=== PATIENT | male | born 1970 | race Caucasian/White ===

== ENCOUNTER → 2018-02-28 13:22 | Outpatient (CLI) | payer BC, SELFPAY ==
[2018-02-28 13:46] LABS: Abs Immature Grans 0.02 k/cumm (0.0-0.09); Absolute Basophil Count 0.05 k/cumm (0.0-0.2); Absolute Eosinophil Count 0.32 k/cumm (0.0-0.7); Absolute Lymphocyte Count 2.73 k/cumm (1.2-3.4); Absolute Monocyte Count 0.86 k/cumm (0.11-0.7); Absolute Neutrophil Count 5.58 k/cumm (1.2-6.7); Basophils % 0.5; Eosinophils % 3.3; HCT 43.3 % (40.0-50.0); HGB 14.6 g/dL (13.5-17.5); Immature Grans % 0.2; Lymphocytes % 28.6; Mean Corp. HGB Concentration 33.7 g/dL (32.0-36.0); Mean Corpuscular Hemoglobin 34.3 pg (27.0-33.0); Mean Corpuscular Volume 101.6 fL (80-95); Mean Platelet Volume 8.8 fL (8.0-11.0); Neutrophils % 58.4; Platelet Count 342 x1000/uL (130-400); RBC 4.26 m/cumm (4.50-6.00); RBC Distribution Width 12.7 % (11.8-14.1); White Blood Cell Count 9.56 k/cumm (4.4-10.8)
[2018-02-28 14:52] LABS: ALT 21 U/L (12-78); AST 19 U/L (15-37); Albumin 3.6 g/dL (3.4-5.0); Alkaline Phosphatase 108 U/L (46-116); Anion Gap 10.1 mmol/L (3-11); BUN 15 mg/dL (7-18); Bilirubin, Total 0.3 mg/dL (0.2-1.0); CO2 25.9 mmol/L (21.0-32.0); Calcium 8.8 mg/dL (8.5-10.1); Chloride 104 mmol/L (98-107); Glucose 85 mg/dL (70-100); Potassium 4.1 mmol/L (3.5-5.1); Sodium 140 mmol/L (136-145); Total Protein 7.3 g/dL (6.4-8.2)
== END ==
PROVIDERS: PCP Family Medicine; Visit Provider Internal Medicine Rheumatology
DX: M05.70 Rheumatoid arthritis with rheumatoid factor of unspecified site without organ or systems involvement (principal)
CPT/HCPCS: 36415; 80053; 85025; 86140

== ENCOUNTER 2018-04-16 15:14 | Outpatient (CLI) | payer BC, SELFPAY ==
[2018-04-16 16:22] LABS: ALT 19 U/L (12-78); AST 17 U/L (15-37); Albumin 3.4 g/dL (3.4-5.0); Alkaline Phosphatase 104 U/L (46-116); Anion Gap 8.8 mmol/L (3-11); BUN 14 mg/dL (7-18); Bilirubin, Total 0.2 mg/dL (0.2-1.0); C-Reactive Protein 1.45 mg/dL (0.0-0.3); CO2 26.2 mmol/L (21.0-32.0); CREATININE 0.81 mg/dL (0.70-1.30); Chloride 105 mmol/L (98-107); Glucose 96 mg/dL (70-100); Potassium 4.3 mmol/L (3.5-5.1); Sodium 140 mmol/L (136-145); Total Protein 6.8 g/dL (6.4-8.2)
[2018-04-16 16:30] LABS: Abs Immature Grans 0.02 k/cumm (0.0-0.09); Absolute Basophil Count 0.05 k/cumm (0.0-0.2); Absolute Eosinophil Count 0.39 k/cumm (0.0-0.7); Absolute Lymphocyte Count 2.97 k/cumm (1.2-3.4); Absolute Monocyte Count 0.98 k/cumm (0.11-0.7); Basophils % 0.5; Eosinophils % 3.6; HCT 40.7 % (40.0-50.0); HGB 13.8 g/dL (13.5-17.5); Immature Grans % 0.2; Lymphocytes % 27.5; Mean Corp. HGB Concentration 33.9 g/dL (32.0-36.0); Mean Corpuscular Hemoglobin 34.5 pg (27.0-33.0); Mean Corpuscular Volume 101.8 fL (80-95); Mean Platelet Volume 9.5 fL (8.0-11.0); Monocytes % 9.1; Neutrophils % 59.1; Platelet Count 344 x1000/uL (130-400); RBC Distribution Width 12.8 % (11.8-14.1); White Blood Cell Count 10.81 k/cumm (4.4-10.8)
[2018-04-16 16:35] LABS: Absolute Neutrophil Count 6.39 k/cumm (1.2-6.7)
== END 2018-04-16 15:34 ==
PROVIDERS: PCP Family Medicine; Visit Provider Internal Medicine Rheumatology
DX: M05.70 Rheumatoid arthritis with rheumatoid factor of unspecified site without organ or systems involvement (principal)
CPT/HCPCS: 36415; 80053; 85025; 86140

== ENCOUNTER 2018-08-15 09:19 | Outpatient (CLI) | payer BC, SELFPAY ==
[2018-08-15 09:44] LABS: Abs Immature Grans 0.01 k/cumm (0.0-0.09); Absolute Basophil Count 0.07 k/cumm (0.0-0.2); Absolute Eosinophil Count 0.31 k/cumm (0.0-0.7); Absolute Lymphocyte Count 2.68 k/cumm (1.2-3.4); Absolute Monocyte Count 0.81 k/cumm (0.11-0.7); Absolute Neutrophil Count 4.47 k/cumm (1.2-6.7); Basophils % 0.8; Eosinophils % 3.7; HCT 43.8 % (40.0-50.0); HGB 15.6 g/dL (13.5-17.5); Immature Grans % 0.1; Lymphocytes % 32.1; Mean Corp. HGB Concentration 35.6 g/dL (32.0-36.0); Mean Corpuscular Hemoglobin 36.1 pg (27.0-33.0); Mean Corpuscular Volume 101.4 fL (80-95); Mean Platelet Volume 9.3 fL (8.0-11.0); Monocytes % 9.7; Neutrophils % 53.6; Platelet Count 306 x1000/uL (130-400); RBC 4.32 m/cumm (4.50-6.00); White Blood Cell Count 8.35 k/cumm (4.4-10.8)
[2018-08-15 10:27] LABS: ALT 31 U/L (12-78); AST 21 U/L (15-37); Albumin 3.7 g/dL (3.4-5.0); Alkaline Phosphatase 97 U/L (46-116); Anion Gap 9.8 mmol/L (3-11); BUN 15 mg/dL (7-18); Bilirubin, Total 0.3 mg/dL (0.2-1.0); C-Reactive Protein 0.41 mg/dL (0.0-0.3); CO2 26.2 mmol/L (21.0-32.0); CREATININE 0.89 mg/dL (0.70-1.30); Calcium 9.4 mg/dL (8.5-10.1); Chloride 105 mmol/L (98-107); Glucose 88 mg/dL (70-100); Potassium 4.5 mmol/L (3.5-5.1); Sodium 141 mmol/L (136-145); Total Protein 7.2 g/dL (6.4-8.2)
== END 2018-08-15 09:39 ==
PROVIDERS: PCP Family Medicine; Visit Provider Internal Medicine Rheumatology
DX: M05.70 Rheumatoid arthritis with rheumatoid factor of unspecified site without organ or systems involvement (principal); Z79.899 Other long term (current) drug therapy
CPT/HCPCS: 36415; 80053; 85025; 86140

== ENCOUNTER 2018-12-22 10:49 | Outpatient (CLI) | payer BC, SELFPAY ==
[2018-12-22 11:07] LABS: Abs Immature Grans 0.03 k/cumm (0.0-0.09); Absolute Basophil Count 0.04 k/cumm (0.0-0.2); Absolute Eosinophil Count 0.32 k/cumm (0.0-0.7); Absolute Lymphocyte Count 2.82 k/cumm (1.2-3.4); Absolute Monocyte Count 0.92 k/cumm (0.11-0.7); Absolute Neutrophil Count 5.29 k/cumm (1.2-6.7); Basophils % 0.4; Eosinophils % 3.4; HCT 47.2 % (40.0-50.0); HGB 16.2 g/dL (13.5-17.5); Immature Grans % 0.3; Lymphocytes % 29.9; Mean Corp. HGB Concentration 34.3 g/dL (32.0-36.0); Mean Corpuscular Hemoglobin 35.3 pg (27.0-33.0); Mean Corpuscular Volume 102.8 fL (80-95); Mean Platelet Volume 9.2 fL (8.0-11.0); Monocytes % 9.8; Neutrophils % 56.2; Platelet Count 329 x1000/uL (130-400); RBC 4.59 m/cumm (4.50-6.00); White Blood Cell Count 9.42 k/cumm (4.4-10.8)
[2018-12-22 12:09] LABS: ALT 34 U/L (12-78); AST 19 U/L (15-37); Albumin 3.7 g/dL (3.4-5.0); Alkaline Phosphatase 105 U/L (46-116); Anion Gap 11.7 mmol/L (3-11); BUN 16 mg/dL (7-18); Bilirubin, Total 0.3 mg/dL (0.2-1.0); C-Reactive Protein 0.31 mg/dL (0.0-0.3); CO2 24.3 mmol/L (21.0-32.0); CREATININE 0.86 mg/dL (0.70-1.30); Calcium 9.3 mg/dL (8.5-10.1); Chloride 103 mmol/L (98-107); Glucose 112 mg/dL (70-100); Potassium 4.3 mmol/L (3.5-5.1); Sodium 139 mmol/L (136-145); Total Protein 7.4 g/dL (6.4-8.2)
== END 2018-12-22 11:09 ==
PROVIDERS: PCP Family Medicine; Visit Provider Internal Medicine Rheumatology
DX: M05.70 Rheumatoid arthritis with rheumatoid factor of unspecified site without organ or systems involvement (principal); Z79.899 Other long term (current) drug therapy
CPT/HCPCS: 36415; 80053; 85025; 86140

== ENCOUNTER 2019-01-24 19:30 | Emergency (ER) | payer BC, SELFPAY ==
[2019-01-24 19:49] VITALS: BP 136/75; PULSE 88; RESP 14; TEMP 36.6; O2SAT 97
--- NOTE | 2019-01-24 20:05 | W.ED.GENAD ---
Discharge Plan Disposition Patient Disposition: HOME Condition: Improving Discharge Details Chief Complaint: RashLesion Clinical Impression: Acute dehydration Primary Care Provider: Jian Laura ED Provider: Denilson Zuniga Home Meds and New Rx's Prescriptions: Continued valacyclovir [Valtrex] 500 MG tablet 500 mg PO DAILY RF: 0 aspirin [Aspir-81] 81 MG tablet,delayed release (DR/EC) 81 mg PO DAILY RF: 0 hydroxychloroquine 200 MG tablet 200 mg PO BID Qty: 180 RF: 0 hydrocodone-acetaminophen 1 TAB tablet 1 - 2 tab PO Q4H PRN (Reason: Pain) RF: 0 Discharge Instructions Instructions: Dehydration (ED) Additional Instructions: Your laboratories were notable for mild dehydration. Home to rest this evening. Small, frequent sips of fluids to maintain hydration. We will ask our care management team to make you a follow-up appointment at [facility] for review of your tick panel. Return for any acute concerns Continue all regular medications Medical Decision Making 49-year-old male with history of rheumatoid arthritis for which she takes weekly methotrexate. He presents with 1 day of a right shoulder erythematous wheal, that blanches to the touch. It was preceded by 2 to 3 days of upper respiratory illness that is now improved. Currently the patient denies fever, chills, cough. He is not in any known tick bites but does work in the [employer]. I do feel he is at risk for possible tickborne disease and therefore screening tick disease panel obtained in addition to screening laboratories to rule out bone marrow suppression due to the patient's ongoing use of methotrexate. Today's screening diagnostic are reassuring. Patient does show some evidence of mild dehydration with a BUN elevated to 26. His initial CBC is reassuring. Tick panel pending. After the patient's discharge it was reported me by the laboratory that some atypical lymphocytes were present. This can be reviewed and further diagnostic planned at the time of follow-up He will hydrate at home. We will make him a follow-up appointment in [facility] to discuss results of his Lyme testing. He stable for discharge home at this time. May apply Benadryl cream to small area of right scapula lesion HPI General Mode of arrival: ambulatory. Date/Time Provider Initiated Documentation: 01/24/19 19:54. Limitations to Documentation: no limitations. Information obtained by: patient. History of Present Illness 49 year old M presents to the emergency department with the chief complaint of Right scapula lesion, described as mild, Quality is described as constant, and is localized to the right and upper extremity. Patient reports no radiation. Patient started experiencing this hour(s) and it has been constant. No relieving factors improve symptom(s), No exacerbating factors reported . Patient notes rash; denies fever/chills. Patient did receive the following treatments prior to arrival, none Related Data Home Medications Medication Instructions Recorded Confirmed valacyclovir [Valtrex] 500 mg PO DAILY tab-cap 11/05/13 04/02/15 aspirin [Aspir-81] 81 mg PO DAILY tab-cap 08/28/14 04/02/15 hydroxychloroquine 200 mg PO BID #180 tab-cap 12/23/14 hydrocodone-acetaminophen 1 - 2 tab PO Q4H PRN 04/02/15 04/02/15 Allergies Allergy/AdvReac Type Severity Reaction Status Date / Time No Known Allergies Allergy Unverified 01/24/19 19:53 General Stated Complaint: RashLesion EDDIE: 4 Review of Systems Review of Systems 6 systems reviewed and otherwise neg [facility] Medical History Carpal tunnel syndrome on both sides Herpes zoster Surgical History Open Carpal Tunnel release (04/02/15) Social History Smoking/Tobacco Use Status: Current every day Tobacco Type: cigarettes Smoking cigarettes per day: 20 Alcohol Intake: current Alcohol Intake frequency: holidays/special occasions only Drug use: Never Substance use type: marijuana Do you feel safe at home: Yes Do you feel safe in your relationship?: Yes Exam Narrative Exam Narrative: GEN: awake, alert, oriented 3. Pleasant, well groomed, interactive. HEAD: Normocephalic, atraumatic ENT: Mucous membranes moist, oropharynx unremarkable, External ear exam unremarkable EYES: PERRL, EOMI NECK: Full ROM, no WOOD, no menigismus CHEST/RESP: Nontender, clear to auscultation bilateral, no wheeze/rhonchi/rales CARDIOVASCULAR: RRR, no murmur, rub patricia. 2+ Rad pulse bilateral ABDOMEN: Soft, nontender, no mass. +Bowel sounds EXT: Full ROM, no edema, on the right scapular region there is a 4 cm diameter erythematous wheal that blanches to the touch. No vesicles Neuro: Grossly normal neurologic exam, conversant, interactive. Psych: Speech fluent, thoughts congruent, affect normal Course Vital Signs Temperature 36.6 C 01/24/19 19:49 Pulse 88 01/24/19 19:49 Respiratory Rate 14 01/24/19 19:49 Blood Pressure 136/75 01/24/19 19:49 Pulse Oximetry 97 01/24/19 19:49 Temperature 36.6 C 01/24/19 19:49 Temperature Source Temporal Artery Scan 01/24/19 19:49 Pulse 88 01/24/19 19:49 Respiratory Rate 14 01/24/19 19:49 Respiratory Effort 01/24/19 19:49 Blood Pressure 136/75 01/24/19 19:49 Pulse Oximetry 97 01/24/19 19:49 Oxygen Delivery Method Room Air 01/24/19 19:49 Oxygen Flow Rate 0 01/24/19 19:49
--- NOTE | 2019-01-24 20:08 | ED.GENADUL_ITS ---
Discharge Plan Disposition Patient Disposition: HOME Condition: Improving Discharge Details Chief Complaint: RashLesion Clinical Impression: Acute dehydration Primary Care Provider: Jian Laura ED Provider: Denilson Zuniga Home Meds and New Rx's Prescriptions: Continued valacyclovir [Valtrex] 500 MG tablet 500 mg PO DAILY RF: 0 aspirin [Aspir-81] 81 MG tablet,delayed release (DR/EC) 81 mg PO DAILY RF: 0 hydroxychloroquine 200 MG tablet 200 mg PO BID Qty: 180 RF: 0 hydrocodone-acetaminophen 1 TAB tablet 1 - 2 tab PO Q4H PRN (Reason: Pain) RF: 0 Discharge Instructions Instructions: Dehydration (ED) Additional Instructions: Your laboratories were notable for mild dehydration. Home to rest this evening. Small, frequent sips of fluids to maintain hydration. We will ask our care management team to make you a follow-up appointment at [facility] for review of your tick panel. Return for any acute concerns Continue all regular medications Medical Decision Making 49-year-old male with history of rheumatoid arthritis for which she takes weekly methotrexate. He presents with 1 day of a right shoulder erythematous wheal, that blanches to the touch. It was preceded by 2 to 3 days of upper respiratory illness that is now improved. Currently the patient denies fever, chills, cough. He is not in any known tick bites but does work in the [employer]. I do feel he is at risk for possible tickborne disease and therefore screening tick disease panel obtained in addition to screening laboratories to rule out bone marrow suppression due to the patient's ongoing use of methotrexate. Today's screening diagnostic are reassuring. Patient does show some evidence of mild dehydration with a BUN elevated to 26. His initial CBC is reassuring. Tick panel pending. After the patient's discharge it was reported me by the laboratory that some atypical lymphocytes were present. This can be reviewed and further diagnostic planned at the time of follow-up He will hydrate at home. We will make him a follow-up appointment in [facility] to discuss results of his Lyme testing. He stable for discharge home at this time. May apply Benadryl cream to small area of right scapula lesion HPI General Mode of arrival: ambulatory . Date/Time Provider Initiated Documentation: 01/24/19 19:54 . Limitations to Documentation: no limitations . Information obtained by: patient . History of Present Illness 49 year old M presents to the emergency department with the chief complaint of Right scapula lesion, described as mild, Quality is described as constant, and is localized to the right and upper extremity. Patient reports no radiation. Patient started experiencing this hour(s) and it has been constant. No relieving factors improve symptom(s), No exacerbating factors reported . Patient notes rash; denies fever/chills. Patient did receive the following treatments prior to arrival, none Related Data Home Medications Medication Instructions Recorded Confirmed valacyclovir [Valtrex] 500 mg PO DAILY tab-cap 11/05/13 04/02/15 aspirin [Aspir-81] 81 mg PO DAILY tab-cap 08/28/14 04/02/15 hydroxychloroquine 200 mg PO BID #180 tab-cap 12/23/14 hydrocodone-acetaminophen 1 - 2 tab PO Q4H PRN 04/02/15 04/02/15 Allergies Allergy/AdvReac Type Severity Reaction Status Date / Time No Known Allergies Allergy Unverified 01/24/19 19:53 General Stated Complaint: RashLesion EDDIE: 4 Review of Systems Review of Systems 6 systems reviewed and otherwise neg [facility] Medical History Carpal tunnel syndrome on both sides Herpes zoster Surgical History Open Carpal Tunnel release (04/02/15) Social History Smoking/Tobacco Use Status: Current every day Tobacco Type: cigarettes Smoking cigarettes per day: 20 Alcohol Intake: current Alcohol Intake frequency: holidays/special occasions only Drug use: Never Substance use type: marijuana Do you feel safe at home: Yes Do you feel safe in your relationship?: Yes Exam Narrative Exam Narrative: GEN: awake, alert, oriented 3. Pleasant, well groomed, interacti ve. HEAD: Normocephalic, atraumatic ENT: Mucous membranes moist, oropharynx unremarkable, External ear exam unremarkable EYES: PERRL, EOMI NECK: Full ROM, no WOOD, no menigismus CHEST/RESP: Nontender, clear to auscultation bilateral, no wheeze/rhonchi/rales CARDIOVASCULAR: RRR, no murmur, rub patricia. 2+ Rad pulse bilateral ABDOMEN: Soft, nontender, no mass. +Bowel sounds EXT: Full ROM, no edema, on the right scapular region there is a 4 cm diameter erythematous wheal that blanches to the touch. No vesicles Neuro: Grossly normal neurologic exam, conversant, interactive. Psych: Speech fluent, thoughts congruent, affect normal Course Vital Signs Temperature 36.6 C 01/24/19 19:49 Pulse 88 01/24/19 19:49 Respiratory Rate 14 01/24/19 19:49 Blood Pressure 136/75 01/24/19 19:49 Pulse Oximetry 97 01/24/19 19:49 Temperature 36.6 C 01/24/19 19:49 Temperature Source Temporal Artery Scan 01/24/19 19:49 Pulse 88 01/24/19 19:49 Respiratory Rate 14 01/24/19 19:49 Respiratory Effort 01/24/19 19:49 Blood Pressure 136/75 01/24/19 19:49 Pulse Oximetry 97 01/24/19 19:49 Oxygen Delivery Method Room Air 01/24/19 19:49 Oxygen Flow Rate 0 01/24/19 19:49
[2019-01-24 20:27] LABS: Abs Immature Grans 0.02 k/cumm (0.0-0.09); Absolute Basophil Count 0.09 k/cumm (0.0-0.2); Absolute Eosinophil Count 0.28 k/cumm (0.0-0.7); Basophils % 0.9; Eosinophils % 2.9; HCT 43.9 % (40.0-50.0); HGB 15.3 g/dL (13.5-17.5); Immature Grans % 0.2; Mean Corp. HGB Concentration 34.9 g/dL (32.0-36.0); Mean Corpuscular Hemoglobin 34.6 pg (27.0-33.0); Mean Corpuscular Volume 99.3 fL (80-95); Mean Platelet Volume 9.8 fL (8.0-11.0); Platelet Count 242 x1000/uL (130-400); RBC 4.42 m/cumm (4.50-6.00); RBC Distribution Width 13.2 % (11.8-14.1); White Blood Cell Count 9.66 k/cumm (4.4-10.8)
[2019-01-24 20:42] LABS: Anion Gap 9.8 mmol/L (3-11); BUN 26 mg/dL (7-18); CO2 27.2 mmol/L (21.0-32.0); CREATININE 1.02 mg/dL (0.70-1.30); Calcium 8.8 mg/dL (8.5-10.1); Chloride 99 mmol/L (98-107); Glucose 120 mg/dL (70-100); Potassium 3.6 mmol/L (3.5-5.1); Sodium 136 mmol/L (136-145)
[2019-01-24 21:02] VITALS: BP 136/75; PULSE 88; RESP 14; O2SAT 97
[2019-01-24 21:11] LABS: Absolute Neutrophil Count 5.12 k/cumm (1.2-6.7)
[2019-01-24 21:12] LABS: Atypical Lymphocytes % 12
[2019-01-24 21:13] LABS: Absolute Monocyte Count 1.45 k/cumm (0.11-0.7)
[2019-01-24 21:14] LABS: Diff Comment Manual Differential; RBC Morphology Normal
[2019-01-27 12:13] LABS: Lyme Ab w Rflx to Lyme Confirm Negative
[2019-01-28 00:19] LABS: Anaplasma phagocytophilum Negative (Negative); B. miyamotoi PCR Negative (Negative); Babesia divergens/MO-1 Negative (Negative); Babesia duncani Negative (Negative); Babesia microti Negative (Negative); Ehrlichia chaffeensis Negative (Negative); Ehrlichia ewingii/canis Negative (Negative); Ehrlichia muris eauclairensis Negative (Negative)
== END 2019-01-24 20:58 | disposition home or self-care (01) ==
PROVIDERS: Emergency Provider Emergency Medicine; PCP Family Medicine
DX: E86.0 Dehydration (principal); L50.9 Urticaria, unspecified
CPT/HCPCS: 36415; 80048; 87798; 99283; 85025; 86618

== ENCOUNTER 2019-01-29 11:55 | Outpatient (CLI) | payer BC, SELFPAY ==
[2019-01-29 12:30] LABS: HGB 14.1 g/dL (13.5-17.5); Mean Corp. HGB Concentration 35.3 g/dL (32.0-36.0); Mean Corpuscular Hemoglobin 35.7 pg (27.0-33.0); Mean Corpuscular Volume 101.3 fL (80-95); Mean Platelet Volume 9.3 fL (8.0-11.0); Platelet Count 472 x1000/uL (130-400); RBC 3.95 m/cumm (4.50-6.00); RBC Distribution Width 13.4 % (11.8-14.1); White Blood Cell Count 9.53 k/cumm (4.4-10.8)
[2019-01-29 13:35] LABS: Vitamin B12 868 pg/mL (193-986)
[2019-01-29 13:48] LABS: Folate > 20.0 ng/mL (8.6-20.0)
[2019-02-02 10:20] LABS: Methylmalonic Acid 0.07 nmol/mL (<=0.40)
== END 2019-01-29 12:15 ==
PROVIDERS: PCP Family Medicine; Visit Provider Emergency Medicine
DX: D64.9 Anemia, unspecified (principal); Z79.899 Other long term (current) drug therapy; Z51.81 Encounter for therapeutic drug level monitoring
CPT/HCPCS: 36415; 80186; 85027; 82607; 82746

== ENCOUNTER 2019-04-28 13:55 | Outpatient (CLI) | payer BC, SELFPAY ==
[2019-04-28 14:21] LABS: Abs Immature Grans 0.02 k/cumm (0.0-0.09); Absolute Basophil Count 0.11 k/cumm (0.0-0.2); Absolute Eosinophil Count 0.43 k/cumm (0.0-0.7); Absolute Lymphocyte Count 2.34 k/cumm (1.2-3.4); Absolute Monocyte Count 1.14 k/cumm (0.11-0.7); Absolute Neutrophil Count 4.21 k/cumm (1.2-6.7); Basophils % 1.3; Eosinophils % 5.2; HCT 46.2 % (40.0-50.0); HGB 16.1 g/dL (13.5-17.5); Immature Grans % 0.2; Lymphocytes % 28.4; Mean Corp. HGB Concentration 34.8 g/dL (32.0-36.0); Mean Corpuscular Hemoglobin 35.6 pg (27.0-33.0); Mean Corpuscular Volume 102.2 fL (80-95); Mean Platelet Volume 8.9 fL (8.0-11.0); Monocytes % 13.8; Neutrophils % 51.1; Platelet Count 329 x1000/uL (130-400); RBC 4.52 m/cumm (4.50-6.00); RBC Distribution Width 13.8 % (11.8-14.1); White Blood Cell Count 8.25 k/cumm (4.4-10.8)
[2019-04-28 14:58] LABS: ALT 28 U/L (16-63); AST 20 U/L (15-37); Albumin 3.9 g/dL (3.4-5.0); Alkaline Phosphatase 103 U/L (46-116); Anion Gap 10.5 mmol/L (3-11); BUN 17 mg/dL (7-18); Bilirubin, Total 0.4 mg/dL (0.2-1.0); C-Reactive Protein 0.16 mg/dL (0.0-0.3); CO2 25.5 mmol/L (21.0-32.0); CREATININE 1.03 mg/dL (0.70-1.30); Calcium 8.9 mg/dL (8.5-10.1); Chloride 106 mmol/L (98-107); Glucose 127 mg/dL (70-100); Potassium 4.1 mmol/L (3.5-5.1); Sodium 142 mmol/L (136-145); Total Protein 7.4 g/dL (6.4-8.2)
== END 2019-04-28 14:15 ==
PROVIDERS: PCP Family Medicine; Visit Provider Internal Medicine Rheumatology
DX: M05.70 Rheumatoid arthritis with rheumatoid factor of unspecified site without organ or systems involvement (principal); Z79.899 Other long term (current) drug therapy
CPT/HCPCS: 36415; 80053; 85025; 86140

== ENCOUNTER 2019-08-10 09:08 | Outpatient (CLI) | payer BC, SELFPAY ==
[2019-08-10 09:24] LABS: Abs Immature Grans 0.01 k/cumm (0.0-0.09); Absolute Basophil Count 0.07 k/cumm (0.0-0.2); Absolute Eosinophil Count 0.29 k/cumm (0.0-0.7); Absolute Lymphocyte Count 2.49 k/cumm (1.2-3.4); Absolute Monocyte Count 0.76 k/cumm (0.11-0.7); Absolute Neutrophil Count 4.93 k/cumm (1.2-6.7); Basophils % 0.8; Eosinophils % 3.4; HCT 43.7 % (40.0-50.0); HGB 15.6 g/dL (13.5-17.5); Immature Grans % 0.1 %; Lymphocytes % 29.1; Mean Corp. HGB Concentration 35.7 g/dL (32.0-36.0); Mean Corpuscular Volume 100.9 fL (80-95); Mean Platelet Volume 9.1 fL (8.0-11.0); Monocytes % 8.9; Neutrophils % 57.7; Platelet Count 373 x1000/uL (130-400); RBC 4.33 m/cumm (4.50-6.00); RBC Distribution Width 13.4 % (11.8-14.1); White Blood Cell Count 8.55 k/cumm (4.4-10.8)
[2019-08-10 10:39] LABS: ALT 26 U/L (16-63); AST 21 U/L (15-37); Albumin 3.8 g/dL (3.4-5.0); Alkaline Phosphatase 102 U/L (46-116); Anion Gap 8.7 mmol/L (3-11); BUN 18 mg/dL (7-18); Bilirubin, Total 0.5 mg/dL (0.2-1.0); C-Reactive Protein 0.24 mg/dL (0.0-0.3); CO2 28.3 mmol/L (21.0-32.0); CREATININE 0.88 mg/dL (0.70-1.30); Calcium 9.4 mg/dL (8.5-10.1); Chloride 105 mmol/L (98-107); Glucose 117 mg/dL (74-106); Potassium 4.4 mmol/L (3.5-5.1); Sodium 142 mmol/L (136-145); Total Protein 6.9 g/dL (6.4-8.2)
== END 2019-08-10 09:28 ==
PROVIDERS: PCP Family Medicine; Visit Provider Internal Medicine Rheumatology
DX: M05.70 Rheumatoid arthritis with rheumatoid factor of unspecified site without organ or systems involvement (principal); Z79.899 Other long term (current) drug therapy
CPT/HCPCS: 36415; 80053; 85025; 86140

== ENCOUNTER 2019-12-17 02:37 | Outpatient (CLI) | payer BC, SELFPAY ==
[2019-12-17 17:23] LABS: Abs Immature Grans 0.01 k/cumm (0.0-0.09); Absolute Basophil Count 0.04 k/cumm (0.0-0.2); Absolute Eosinophil Count 0.35 k/cumm (0.0-0.7); Absolute Lymphocyte Count 2.78 k/cumm (1.2-3.4); Absolute Monocyte Count 1.08 k/cumm (0.11-0.7); Absolute Neutrophil Count 6.17 k/cumm (1.2-6.7); Basophils % 0.4; Eosinophils % 3.4; HCT 43.7 % (40.0-50.0); HGB 14.8 g/dL (13.5-17.5); Immature Grans % 0.1 %; Lymphocytes % 26.7; Mean Corp. HGB Concentration 33.9 g/dL (32.0-36.0); Mean Corpuscular Hemoglobin 34.6 pg (27.0-33.0); Mean Corpuscular Volume 102.1 fL (80-95); Mean Platelet Volume 9.4 fL (8.0-11.0); Monocytes % 10.4; Platelet Count 318 x1000/uL (130-400); RBC 4.28 m/cumm (4.50-6.00); RBC Distribution Width 13.2 % (11.8-14.1); White Blood Cell Count 10.43 k/cumm (4.4-10.8)
[2019-12-17 18:44] LABS: ALT 28 U/L (16-63); AST 24 U/L (15-37); Alkaline Phosphatase 106 U/L (46-116); Anion Gap 9.6 mmol/L (3-11); BUN 13 mg/dL (7-18); Bilirubin, Total 0.5 mg/dL (0.2-1.0); CO2 24.4 mmol/L (21.0-32.0); Calcium 8.9 mg/dL (8.5-10.1); Chloride 103 mmol/L (98-107); Glucose 93 mg/dL (74-106); Sodium 137 mmol/L (136-145); Total Protein 7.3 g/dL (6.4-8.2)
[2019-12-17 18:52] LABS: C-Reactive Protein 0.61 mg/dL (0.0-0.3)
== END 2019-12-17 02:57 ==
PROVIDERS: PCP Family Medicine; Visit Provider Internal Medicine Rheumatology
DX: M05.70 Rheumatoid arthritis with rheumatoid factor of unspecified site without organ or systems involvement (principal); Z79.899 Other long term (current) drug therapy
CPT/HCPCS: 36415; 80053; 85025; 86140

== ENCOUNTER 2020-04-16 02:17 | Outpatient (CLI) | payer BC, SELFPAY ==
[2020-04-16 16:52] LABS: Abs Immature Grans 0.03 10^3/uL (0.0-0.06); Absolute Basophil Count 0.09 10^3/uL (0.0-0.2); Absolute Lymphocyte Count 3.55 10^3/uL (1.2-3.4); Absolute Monocyte Count 0.86 10^3/uL (0.1-0.8); Basophils % 0.7; Eosinophils % 3.6; HCT 43.1 % (40.0-50.0); HGB 14.7 g/dL (13.5-17.5); Immature Grans % 0.2; Lymphocytes % 28.1; MCH 35.5 pg (27.0-33.0); MCHC 34.1 % (32.0-36.0); MCV 104.1 fL (80-95); MPV 9.4 fL (8.0-11.0); Monocytes % 6.8; Neutrophils % 60.6; Nucleated RBC 0 %; Platelet Count 350 10^3/uL (130-400); RBC 4.14 10^6/uL (4.36-5.78); RDW 13.5 % (11.8-14.1); RDW-SD 51.9 fL; WBC 12.62 10^3/uL (4.4-10.8)
[2020-04-16 16:53] LABS: Absolute Eosinophil Count 0.45 10^3/uL (0.0-0.7); Absolute Neutrophil Count 7.65 10^3/uL (1.2-6.7)
[2020-04-16 18:30] LABS: ALT 26 U/L (16-63); AST 21 U/L (15-37); Albumin 3.7 g/dL (3.4-5.0); Alkaline Phosphatase 102 U/L (46-116); Anion Gap 10.6 mmol/L (3-11); BUN 13 mg/dL (7-18); Bilirubin, Total 0.2 mg/dL (0.2-1.0); C-Reactive Protein 0.32 mg/dL (0.0-0.3); CO2 26.4 mmol/L (21.0-32.0); CREATININE 0.94 mg/dL (0.70-1.30); Chloride 102 mmol/L (98-107); Glucose 104 mg/dL (74-106); Potassium 4.1 mmol/L (3.5-5.1); Sodium 139 mmol/L (136-145)
== END 2020-04-16 02:37 ==
PROVIDERS: PCP Family Medicine; Visit Provider Internal Medicine Rheumatology
DX: M05.79 Rheumatoid arthritis with rheumatoid factor of multiple sites without organ or systems involvement (principal); Z79.899 Other long term (current) drug therapy
CPT/HCPCS: 36415; 80053; 85025; 86140

== ENCOUNTER 2020-08-23 04:38 | Outpatient (CLI) | payer BC, SELFPAY ==
[2020-08-23 09:11] LABS: Abs Immature Grans 0.02 10^3/uL (0.0-0.06); Absolute Eosinophil Count 0.36 10^3/uL (0.0-0.7); Absolute Lymphocyte Count 2.81 10^3/uL (1.2-3.4); Absolute Monocyte Count 0.94 10^3/uL (0.1-0.8); Absolute Neutrophil Count 5.64 10^3/uL (1.2-6.7); Eosinophils % 3.6; HCT 46.2 % (40.0-50.0); HGB 15.7 g/dL (13.5-17.5); Immature Grans % 0.2; Lymphocytes % 28.5; MCH 34.8 pg (27.0-33.0); MCV 102.4 fL (80-95); MPV 8.8 fL (8.0-11.0); Monocytes % 9.5; Neutrophils % 57.2; Nucleated RBC 0 %; Platelet Count 397 10^3/uL (130-400); RBC 4.51 10^6/uL (4.36-5.78); RDW-SD 49.2 fL; WBC 9.87 10^3/uL (4.4-10.8)
[2020-08-23 10:32] LABS: ALT 26 U/L (16-63); AST 18 U/L (15-37); Albumin 3.9 g/dL (3.4-5.0); Alkaline Phosphatase 106 U/L (46-116); Anion Gap 8.8 mmol/L (3-11); BUN 16 mg/dL (7-18); Bilirubin, Total 0.5 mg/dL (0.2-1.0); C-Reactive Protein 0.18 mg/dL (0.0-0.3); CO2 28.2 mmol/L (21.0-32.0); CREATININE 0.9 mg/dL (0.70-1.30); Calcium 9.5 mg/dL (8.5-10.1); Chloride 103 mmol/L (98-107); Glucose 96 mg/dL (74-106); Potassium 4.1 mmol/L (3.5-5.1); Sodium 140 mmol/L (136-145); Total Protein 7.2 g/dL (6.4-8.2)
== END 2020-08-23 04:58 ==
PROVIDERS: PCP Family Medicine; Visit Provider Internal Medicine Rheumatology
DX: M05.79 Rheumatoid arthritis with rheumatoid factor of multiple sites without organ or systems involvement (principal); Z79.899 Other long term (current) drug therapy
CPT/HCPCS: 36415; 80053; 85025; 86140

== ENCOUNTER 2021-01-03 07:58 | Outpatient (CLI) | payer BC, SELFPAY ==
[2021-01-03 09:39] LABS: Abs Immature Grans 0.04 10^3/uL (0.0-0.06); Absolute Basophil Count 0.08 10^3/uL (0.0-0.2); Absolute Eosinophil Count 0.37 10^3/uL (0.0-0.7); Absolute Lymphocyte Count 2.35 10^3/uL (1.2-3.4); Absolute Monocyte Count 0.97 10^3/uL (0.1-0.8); Absolute Neutrophil Count 7.07 10^3/uL (1.2-6.7); Basophils % 0.7; Eosinophils % 3.4; HCT 44.6 % (40.0-50.0); HGB 15.5 g/dL (13.5-17.5); Immature Grans % 0.4; Lymphocytes % 21.6; MCH 35.6 pg (27.0-33.0); MCHC 34.8 % (32.0-36.0); MCV 102.5 fL (80-95); MPV 9.1 fL (8.0-11.0); Monocytes % 8.9; Nucleated RBC 0 %; Platelet Count 351 10^3/uL (130-400); RBC 4.35 10^6/uL (4.36-5.78); RDW 13.2 % (11.8-14.1); WBC 10.88 10^3/uL (4.4-10.8)
[2021-01-03 10:13] LABS: Albumin 3.7 g/dL (3.4-5.0); Alkaline Phosphatase 96 U/L (46-116); BUN 17 mg/dL (7-18); Bilirubin, Total 0.4 mg/dL (0.2-1.0); CO2 25.9 mmol/L (21.0-32.0); CREATININE 0.9 mg/dL (0.70-1.30); Chloride 105 mmol/L (98-107); Glucose 118 mg/dL (74-106); Sodium 142 mmol/L (136-145); Total Protein 6.9 g/dL (6.4-8.2)
[2021-01-03 10:14] LABS: ALT 25 U/L (16-63); AST 17 U/L (15-37); Anion Gap 11.1 mmol/L (3-11); C-Reactive Protein 0.33 mg/dL (0.0-0.3)
== END 2021-01-03 07:59 | disposition home or self-care (01) ==
LOC: LBO 07:59
PROVIDERS: PCP Family Medicine; Visit Provider Internal Medicine Rheumatology
DX: M05.79 Rheumatoid arthritis with rheumatoid factor of multiple sites without organ or systems involvement (principal); Z79.899 Other long term (current) drug therapy
CPT/HCPCS: 36415; 80053; 85025; 86140

== ENCOUNTER 2021-05-17 03:42 | Outpatient (CLI) | payer BC, SELFPAY ==
[2021-05-17 10:21] LABS: Abs Immature Grans 0.03 10^3/uL (0.0-0.06); Absolute Basophil Count 0.07 10^3/uL (0.0-0.2); Absolute Eosinophil Count 0.27 10^3/uL (0.0-0.7); Absolute Lymphocyte Count 2.74 10^3/uL (1.2-3.4); Absolute Monocyte Count 0.77 10^3/uL (0.1-0.8); Absolute Neutrophil Count 5.58 10^3/uL (1.2-6.7); Basophils % 0.7; Eosinophils % 2.9; HCT 46.2 % (40.0-50.0); HGB 15.5 g/dL (13.5-17.5); Immature Grans % 0.3; MCH 34.5 pg (27.0-33.0); MCHC 33.5 % (32.0-36.0); MCV 102.9 fL (80-95); MPV 8.9 fL (8.0-11.0); Monocytes % 8.1; Nucleated RBC 0 %; Platelet Count 362 10^3/uL (130-400); RBC 4.49 10^6/uL (4.36-5.78); RDW 13.2 % (11.8-14.1); RDW-SD 50.5 fL; WBC 9.46 10^3/uL (4.4-10.8)
[2021-05-17 11:48] LABS: ALT 28 U/L (16-63); AST 18 U/L (15-37); Alkaline Phosphatase 99 U/L (46-116); Anion Gap 11.2 mmol/L (3-11); BUN 13 mg/dL (7-18); Bilirubin, Total 0.4 mg/dL (0.2-1.0); C-Reactive Protein 0.13 mg/dL (0.0-0.3); CO2 26.8 mmol/L (21.0-32.0); CREATININE 0.8 mg/dL (0.70-1.30); Calcium 9.5 mg/dL (8.5-10.1); Chloride 105 mmol/L (98-107); Glucose 114 mg/dL (74-106); Potassium 4.4 mmol/L (3.5-5.1); Sodium 143 mmol/L (136-145); Total Protein 7.2 g/dL (6.4-8.2)
== END 2021-05-17 03:43 | disposition home or self-care (01) ==
LOC: LBO 03:42
PROVIDERS: PCP Family Medicine; Visit Provider Internal Medicine Rheumatology
DX: M05.79 Rheumatoid arthritis with rheumatoid factor of multiple sites without organ or systems involvement (principal); Z79.899 Other long term (current) drug therapy
CPT/HCPCS: 36415; 80053; 85025; 86140

== ENCOUNTER 2022-08-25 11:11 | Outpatient (CLI) | payer BC, SELFPAY ==
[2022-08-25 11:38] LABS: Abs Immature Grans 0.03 10^3/uL (0.0-0.06); Absolute Basophil Count 0.08 10^3/uL (0.0-0.2); Absolute Lymphocyte Count 3.13 10^3/uL (1.2-3.4); Absolute Monocyte Count 1.07 10^3/uL (0.1-0.8); Absolute Neutrophil Count 7.01 10^3/uL (1.2-6.7); Basophils % 0.7; Eosinophils % 2.7; HCT 45.2 % (40.0-50.0); HGB 15.2 g/dL (13.5-17.5); Immature Grans % 0.3; Lymphocytes % 26.9; MCH 34.7 pg (27.0-33.0); MCHC 33.6 % (32.0-36.0); MCV 103 fL (80-95); Monocytes % 9.2; Neutrophils % 60.2; Platelet Count 366 10^3/uL (130-400); RBC 4.38 10^6/uL (4.36-5.78); RDW 13.3 % (11.8-14.1); RDW-SD 50.4 fL; WBC 11.64 10^3/uL (4.4-10.8)
[2022-08-25 11:43] LABS: Absolute Eosinophil Count 0.31 10^3/uL (0.0-0.7)
[2022-08-25 12:06] LABS: ALT 26 U/L (16-63); AST 25 U/L (15-37); Albumin 3.9 g/dL (3.4-5.0); Alkaline Phosphatase 107 U/L (46-116); Anion Gap 8.2 mmol/L (3-11); BUN 14 mg/dL (7-18); Bilirubin, Total 0.5 mg/dL (0.2-1.0); C-Reactive Protein 0.61 mg/dL (0.0-0.3); CO2 27.8 mmol/L (21.0-32.0); CREATININE 0.9 mg/dL (0.70-1.30); Calcium 9.4 mg/dL (8.5-10.1); Chloride 105 mmol/L (98-107); Estimated GFR 102.12 (mL/min/1.73m2); Glucose 93 mg/dL (74-106); Potassium 4.1 mmol/L (3.5-5.1); Sodium 141 mmol/L (136-145); Total Protein 7.6 g/dL (6.4-8.2)
== END 2022-08-25 11:12 | disposition home or self-care (01) ==
LOC: LBO 11:15
PROVIDERS: PCP Family Medicine; Visit Provider Internal Medicine Rheumatology
DX: M05.79 Rheumatoid arthritis with rheumatoid factor of multiple sites without organ or systems involvement (principal); Z79.899 Other long term (current) drug therapy
CPT/HCPCS: 36415; 80053; 85025; 86140

== ENCOUNTER 2024-04-21 20:58 | Outpatient (REF) | payer OTHER, SELFPAY ==
--- OUTSIDE RECORDS SUMMARY | 2024-04-21 21:00 | XMS_ITS | Encounter Summary ---
[place] [address] Care Team Providers Care Dining Service Worker Name Role Phone Darren Garcia DO Primary Care Provider Encounter Details Date Type Department Care Team (Late st Contact Info) Description 06/26/2022 Refill Dermatology at [address] [phone] Janie Sarmiento RN Social History Tobacco Use Types Packs/Day Years Used Date Smoking Tobacco: Every Day Smokeless Tobacco: Never Alcohol Use Standard Drinks/Week Comments Not Asked 0 (1 standard drink = 0.6 oz pur e alcohol) Sex and Gender Information Value Date Recorded Sex Assigned at Not on file Gender Identity Not on file Sexual Orientation Not on file documented as of this encounter Plan of Treatment Upcoming Encounters Date Type Department Care Team (Late st Contact Info) Description 07/04/2024 8:00 AM EST Office Visit Dermatology at [address] [phone] Douglas Carreon MD [address] [place] [address], [place] [address] documented as of this encounter Visit Diagnoses Not on filedocumented in this encounter Care Teams Dining Service Worker Relationship Specialty Start Date End Date Darren Garcia DO [address] [facility] 1 [place] [address] PCP - General Family Medicine 05/17/20 documented as of this encounter
--- OUTSIDE RECORDS SUMMARY | 2024-04-21 21:00 | XMS_ITS | Encounter Summary ---
[place] [address] Care Team Providers Care Transit Mechanic Name Role Phone JoseDarren lewis Primary Care Provider [phone] Reason for Visit * Reason Comments Skin Check Encounter Details Date Type Department Care Team (Late st Contact Info) Description 05/17/2020 8:15 AM EDT Office Visit Dermatology at [address] [phone] oDuglas Carreon MD [address] [facility], [place] [address] Lymphomatoid papulosis; HSV (herpes simplex virus) anogenital infection Social History Tobacco Use Types Packs/Day Years Used Date Smoking Tobacco: Every Day Smokeless Tobacco: Never Alcohol Use Standard Drinks/Week Comments Not Asked 0 (1 standard drink = 0.6 oz pur e alcohol) Sex and Gender Information Value Date Recorded Sex Assigned at Not on file Gender Identity Not on file Sexual Orientation Not on file documented as of this encounter Progress Notes * Douglas Carreon MD - 05/17/2020 8:15 AM EDT Problem: 1. Yearly skin checkup 2. 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 ??History of mother of complications of severe lupus 5. ??Rheumatoid arthritis being followed by Dr. Dhara Cheng and controlled with methotrexate Ponce follows up for a 1 year check and has been doing well. His lymphomatoid papulosis remains quiescent as long as he remains on methotrexate, which he is taking for his rheumatoid arthritis. He isseen on every 3 to 4-month basis by Dr. Dhara Cheng. He continues to work for the [employer]. The methotrexate is tolerated well. The valacyclovir is working well for him he is only had 1 outbreak in the genital region this year. Physical examination reveals a pleasant 50-year-old man who is moderately bothered by solar lentigos developing on his face on the right nasal ala left [facility]. He has no active areas of lymphomatoid papulosis on the legs or back today. Has no active HSV. Assessment plan Lymphomatoid papulosis 1. Currently continues to respond well to his cetraxate. This is prescribed by Dr. Cheng. This is allowing him to continue to work in his very physically taxing job. 2. Return to clinic in a year for repeat check HSV 1. Continue valacyclovir 500 mg 1 p.o. daily specimen 90 for a 3-month supply with 3 refills. Will call into his [facility] in [place]. Solar lentigo's, facial 1. Patient would like to try hydroquinone 4% cream. Apply twice daily to affected facial areas dispense 15 g with 3 refills. He knows this may not be covered by insurance. 2. Continue sun avoidance precautions sunscreen with Helioplex and hat when possible to protect himself from the sun. 3. Discussed also the option of laser treatments which patient is not interested in at this time. Rheumatoid arthritis 1. Continues to be followed by Dr. Cheng. CC: Darren Garcia DO documented in this encounter Plan of Treatment Upcoming Encounters Date Type Department Care Team (Late st Contact Info) Description 07/04/2024 8:00 AM EST Office Visit Dermatology at [place] [address] [place] [phone] Douglas Carreon MD [address], [place] [address] documented as of this encounter Visit Diagnoses Diagnosis Lymphomatoid papulosis Other specified disorder of skin HSV (herpes simplex virus) anogenital infection Herpes simplex without mention of complication documented in this encounter Care Teams Transit Mechanic Relationship Specialty Start Date End Date Darren Garcia DO [address] [place] [address] [facility] 1 [place] [address] PCP - General Family Medicine 05/17/20 documented as of this encounter
--- OUTSIDE RECORDS SUMMARY | 2024-04-21 21:00 | XMS_ITS | Encounter Summary ---
Author Organization [facility] [place] [address] Care Team Providers Care Brim Stretching Machine Operator Name Role Phone Darren Garcia DO Primary Care Provider [phone] Reason for Visit * Reason Comments Medication Refill Encounter Details Date Type Department Care Team (Late Contact Info) Description 05/18/2021 Refill Dermatology at [address] [phone] Douglas Carreon MD [address] [place] [address], [facility] [place] [address] Social History Tobacco Use Types Packs/Day Years [...] 8:00 AM EST Office Visit Dermatology at [address] [phone] Douglas Carreon MD [address] [place] [address], [facility] [place] [address] documented as of this encounter Visit Diagnoses Not on filedocumented in this encounter Care Teams Brim Stretching Machine Operator Relationship Specialty Start Date End Date Darren Garcia DO [address] [facility] 1 [place], [place] [phone] PCP - General Family Medicine 05/17/20 documented as of this encounter
--- OUTSIDE RECORDS SUMMARY | 2024-04-21 21:00 | XMS_ITS | Encounter Summary ---
Author Organization [facility] [place] [address] Care Team Providers Care Jewelry Sales Coordinator Name Role Phone Maurisio Beckett MD Primary Care Provider [phone] Encounter Details Date Type Department Care Team (Late st Contact Info) Description 10/16/2011 6:40 PM EDT - 10/16/2011 11:59 PM EDT Hospital [place] [address] Douglas Prado MD [address] [facility] [place] [address] Discharge Disposition: Home Social History Tobacco Use Types Packs/Day Years Used Date Smoking Tobacco: Former Alcohol Use Standard Drinks/Week Comments Not Asked 0 (1 standard drink = 0.6 oz pur e alcohol) Sex and Gender Information Value Date Recorded Sex Assigned at Not on file Gender Identity Not on file Sexual Orientation Not on file documented as of this encounter Medications at Time of Discharge Medication Sig Dispensed Refills Start Date End Date valACYclovir (VALTREX) 500 mg tablet 500 MG, PO, Twice daily 10/15/2008 05/15/2019 ranitidine (ZANTAC) 150 mg capsule 07/19/2005 11/17/2016 documented as of this encounter Plan of Treatment Upcoming Encounters Date Type Department Care Team (Late st Contact Info) Description 07/04/2024 8:00 AM EST Office Visit Dermatology at [place] [address] [place] [phone] Douglas Prado MD [address] [facility] [place] [address] documented as of this encounter Procedures Procedure Name Priority Date/Time Associated Diagnosis Comments SURGICAL PATHOLOGY REPORT Routine 10/16/2011 6:45 PM EDT documented in this encounter Results * SURGICAL PATHOLOGY REPORT (10/16/2011 6:45 PM EDT) Surgical Pathology Report ? [facility] ? Provider: ?? DOUGLAS PRADO ?? Pt. Name: ?? KENNY PONCE Tracy ? Acc #: ?[id number] ? Pt. ? Col Date: ?? 10/16/2011 ? /Sex: ?1970,(41 years),Male ? Rec Date: ?? 10/17/2011 ? LOC: ?[facility] ? SURGICAL PATHOLOGY ? ---Pathologic Diagnosis--- ? Skin, back, punch biopsy: ?Superficial and deep perivascular and interstitial lymphocytic ? infiltrate with scattered enlarged pleomorphic lymphocytes and eosinophils ? (see Comment). ? CR-0 ? 10/17/11 ? AJE ? 10/19/11 Verified by: ? Serge Morejon MD ? Dermatopathologist ? (Electronic Signature) ? The attending pathologist whose signature appears on this report has ? reviewed all diagnostic slides and has edited the gross and/or ? microscopic portion of the report in rendering the final pathologic ? diagnosis. ? ---Comment--- ? This most likely represents a hypersensitivity-type reaction, such as a ? manifestation of an arthropod bite reaction or a drug eruption with ? enlarged activated lymphocytes. ??The lymphocytic infiltrate is composed ? predominantly of CD3-positive T-cells with scattered BH26-smwlacie B-cells. ? The enlarged pleomorphic lymphocytes are positive for CD30. ??Although not ? favored, if lymphomatoid papulosis becomes a diagnostic consideration, or ? if this process fails to resolve, additional biopsies may be indicated. ??A ? PAS stain is negative for hyphae. ??Multiple levels examined. ? ---Microscopic Description--- ? Slides reviewed, microscopic description not recorded. ? Special stains are performed. ?Block Stain Result ( Positive / Negative ) ?A1 ??PAS/f Negative for hyphae. ? Immunohistochemistry Studies: ? Formalin-fixed, paraffin-embedded tissue sections are studied using the B- ? SA system technique with appropriate positive and negative controls. ??These ? IHC studies provide the pathologist with adjunctive diagnostic information. ? Antibody specificity has been verified by testing antibodies on a series of ? in-house tissues with known immunohistochemical performance ? characteristics. The ? [facility] ? Provider: ?? DOUGLAS PRADO ?? Pt. Name: ?? PONCE DONG ? Acc #: ?[id number] ? Pt. ? Col Date: ?? 10/16/2011 ? /Sex: ?1970,(41 years),Male ? Rec Date: ?? 10/17/2011 ? LOC: ?[facility] ? SURGICAL PATHOLOGY ? clinical interpretation of any antibody positive staining or its absence is ? evaluated within the context of clinical presentation, morphology, ? histopathological criteria and other diagnostic tests. ? Block ?Antibody ? Result (Positive/Negative) ? A1 ?CD3 ?Highlights predominance of cells. ? CD20 ? Highlights scattered cells. ? CD30 ? Highlights enlarged pleomorphic lymphocytes. ? ---Gross Description--- ? Labeled/Fixative: ? Labeled with the patient's name, formalin. ? Qty/Size/Weight: ?Two 0.4-cm punches of pantoja skin, each excised to a ? depth of 0.5 cm. ? Sections/Processing: ??One portion of tissue marked with black ink. ??Both ? are bisected. ?? (T1) ??aje/EJR ? ---Clinical Information--- ? Specimen Submitted: ? A - Back, 4 mm back ? Clinical History/Diagnosis: ? 2 months H/O pruritic papules on back, upper and lower extremities; ? 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 Report to: ? Douglas Prado MD, III ? Dermatology ? [address] [facility], [address] ? . [place], [place] ??[address] ALEJANDRA SLOANIUM 10/16/2011 6:45 PM EDT Douglas Prado MD PATHOLOGY/CYTOLOGY O RDERABLES [place]ANDRA [place] documented in this encounter Visit Diagnoses Not on filedocumented in this encounter Care Teams Jewelry Sales Coordinator Relationship Specialty Start Date End Date Maurisio Beckett MD [address] [facility] [address] [place] [address] PCP - General 10/16/11 10/19/14 documented as of this encounter
--- OUTSIDE RECORDS SUMMARY | 2024-04-21 21:00 | XMS_ITS | Encounter Summary ---
[place] [address] Care Team Providers Care Mechanical Ordnance Assembler Name Role Phone Maurisio Beckett MD Primary Care Provider [phone] Reason for Visit * Reason Comments Rash Encounter Details Date Type Department Care Team (Late st Contact Info) Description 10/16/2011 5:15 PM EDT Office Visit Dermatology [address] [place] [address] [address] [place], [place] [phone] Douglas Carreon MD [address], [place] [address] Dermatitis (Primary Dx); Follicular cyst Social History Tobacco Use Types Packs/Day Years [...] Progress Notes * Douglas Carreon MD - 10/16/2011 6:07 PM EDT Problems: 1. History of HSV genital. 2. New concerns times two months itchy bumps on skin. Ponce follows up and is now 41. For the last two months he has had itchy little red bumps that come up and take a couple of weeks at least to heal. They have been present all over on the torso, upper and lower extremities, scalp, and face. They are in sun exposed and some protected areas. Calamine lotion does not help. Warm weather seems to aggravate it. 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 He also has a large lump on his back pimple that he would like to have removed. Physical examination reveals he has no active HSV, that is well controlled with his current dosing of valacyclovir 500 mg one p.o. b.i.d. Physical examination reveals a pleasant 41-year-old gentleman who has erythematous 2 mm or 3 mm juicy appearing papules excoriated on the chest, shoulders, legs, and arms, scattered sparsely, perhaps 10 to 15 being noted in those locations, but non-excoriated and about four or five present over his back. He is somewhat pantoja on his face but there are some areas not tanned and show a similar number of these papules. He does have a roughly 1-cm soft, fleshy papule on the right lower back consistent with either a lipoma or a follicular cyst. The genitalia were not examined today for HSV. Assessment and Plan: 1. 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 a. Today two 4 mm punch biopsies obtained, one from the left and one from the right midback. b. Closed with 4 Ethilon sutures. c. Suture removal in 10 to 14 days. d. When biopsy results are obtained, patient gave me his permission to leave a message on his home phone number to relay the results to him. Appropriate therapy to be predicated on biopsy results. 2. Lipoma/follicular cyst, right lower back. a. We will schedule him for an appointment for excision of this at the patient's convenience. documented in this encounter Plan of Treatment Upcoming Encounters Date Type Department Care Team (Late st Contact Info) Description 07/04/2024 8:00 AM EST Office Visit Dermatology at [place] [address] [facility] [place] [phone] Douglas Carreon MD [address] [facility], [place] [address] documented as of this encounter Visit Diagnoses Diagnosis Dermatitis- Primary Contact dermatitis and other eczema, due to unspecified cause Follicular cyst Follicular cyst of ovary documented in this encounter Care Teams Mechanical Ordnance Assembler Relationship Specialty Start Date End Date Maurisio Beckett MD [address] [place] [address] PCP - General 10/16/11 10/19/14 documented as of this encounter
--- OUTSIDE RECORDS SUMMARY | 2024-04-21 21:00 | XMS_ITS | Encounter Summary ---
Author Organization [facility] Address [address] [place] [address] Care Team Providers Care Compliance Consultant Name Role Phone Chiquita Brooks NP Primary Care Provider [phone] Reason for Visit * Reason Onset Date Comments Immunizations 02/28/2024 Encounter Details Date Type Department Care Team (Late st Contact Info) Description 02/28/2024 Telephone [facility] Rheumatology [address] [place] [address] Dhara Cheng MD [address] [facility] [address] [place] [address] Immunizations Social History Tobacco Use Types Packs/Day Years Used Date Smoking Tobacco: Every Day Cigarettes Smokeless Tobacco: Never Comments:just over 1 pk per day Interpersonal Safety Answer Date Record ed Physically Hurt Never 02/22/2020 Verbally Threaten Not on file 02/22/2020 Sex and Gender Information Value Date Recorded Sex Assigned at Not on file Gender Identity Male 08/13/2019 8:28 EST Sexual Orientation Not on file documented as of this encounter Functional Status Functional Status Response Date of Assess ment Because of a physical, menta l, or emotional condition, does this person have difficulty doing errands alone such as visiting a doctor's office or shopping? No 08/23/2020 Cognitive Status Response Date of Assessm ent Because of a physical, menta l, or emotional condition, does this person have serious difficulty concentrating, remembering, or making decisions? No 08/23/2020 documented as of this encounter Miscellaneous Notes * Telephone Encounter - Lita Whittington RN - 02/28/2024 0904 EDT Patient advised to contact his PCP regarding a tetanus vaccine. He verbalized understanding. * Telephone Encounter - Latasha García - 02/28/2024 0859 EDT Patient is due for tetanus, asking if this is something Dr. Cheng could order for him. Patient will try to contact PCP also. documented in this encounter Plan of Treatment Upcoming Encounters Date Type Department Care Team (Late st Contact Info) Description 09/11/2024 8:00 EST Office Visit [facility] Rheumatology [address] [place] [address] Dhara Cheng MD [address] [place] [address]- [address] [place] [phone] documented as of this encounter Visit Diagnoses Not on filedocumented in this encounter Care Teams Compliance Consultant Relationship Specialty Start Date End Date Chiquita Brooks NP PCP - General 09/29/14 documented as of this encounter
--- OUTSIDE RECORDS SUMMARY | 2024-04-21 21:00 | XMS_ITS | Encounter Summary ---
Author Organization [facility] [place] [address] Care Team Providers Care Field Training Manager Name Role Phone Angela Pelaez MD Primary Care Provider [phone] Reason for Visit * Reason Comments Follow-up Skin Check Encounter Details Date Type Department Care Team (Late st Contact Info) Description 05/14/2018 11:30 AM EDT Office Visit Dermatology at [address] [phone] Douglas Carreon MD [address] [facility], [place] [address] Lymphomatoid papulosis; HSV (herpes simplex virus) anogenital [...] Progress Notes * Douglas Carreon MD - 05/14/2018 11:30 AM EDT Problem: 1. Dilated yearly skin checkup 2. 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 History of mother of complications of severe lupus 5. Rheumatoid arthritis being followed by Dr. Dhara Cheng and recently started on methotrexate 6 weeks ago Is follows up and is doing well. Continues to work for [employer]. He is his LP is responding as is his rheumatoid arthritis to the methotrexate that he was just started on. Prior to that he was on Plaquenil without significant benefit. In fact he had a fairly severe flare of his RA this summer. His HSV is well controlled is not had any outbreaks this last year Physical examination was a pleasant 48-year-old gentleman who is well tanned on the face and arms. He has 2 swollen to goes right on the one on the right nasal ala and one on the left mid cheek of 2 years duration. They were documented in his last note. The papules of lymphomatoid papulosis on his legs and back have cleared. He has no active HSV. Assessment plan: Lymphomatoid papulosis 1. Currently responding to methotrexate which patient is finding it also quite helpful for his RA. 2. Continue to monitor HSV 1. Continue valacyclovir 500 mg 1 p.o. daily dispense #90 for a 3-month supply with 3 refills will call this into his [employer] in [employer] lentigo's, facial 1. Continue sunscreen with Helioplex and continue wearing a wide brimmed hat when [id number]. 2. Patient reassured about benign sun exposed skin examination today Rheumatoid arthritis 1. Being followed by Dr. Cheng [facility] maintenance 1. Patient is considering to whom he would go for primary care. We discussed this at some length. CC: Dhara Cheng MD documented in this encounter Plan of Treatment Upcoming Encounters Date Type Department Care Team (Late st Contact Info) Description 07/04/2024 8:00 AM EST Office Visit Dermatology at [place] [address] [place] [address] Douglas Carreon MD [address] [facility] [address] [address], [place] [address] documented as of this encounter Visit Diagnoses Diagnosis Lymphomatoid papulosis Other specified disorder of skin HSV (herpes simplex virus) anogenital infection Herpes simplex without mention of complication documented in this encounter Care Teams Field Training Manager Relationship Specialty Start Date End Date Angela Pelaez MD PCP - General 10/20/14 05/14/19 documented as of this encounter
--- OUTSIDE RECORDS SUMMARY | 2024-04-21 21:00 | XMS_ITS | Encounter Summary ---
Author Organization [facility] [place] [address] Care Team Providers Care Surgical Assist Name Role Phone Darren Garcia DO Primary Care Provider [phone] Encounter Details Date Type Department Care Team (Latest Contact Info) Description 06/26/2022 Travel Social History Tobacco Use Types Packs/Day Years [...] 8:00 AM EST Office Visit Dermatology at [place] 580 [place] [address] Douglas Carreon MD [address], [place] [address] documented as of this encounter Visit Diagnoses Not on filedocumented in this encounter Care Teams Surgical Assist Relationship Specialty Start Date End Date Darren Garcia DO [address] [place] [address] PCP - General Family Medicine 05/17/20 documented as of this encounter
--- OUTSIDE RECORDS SUMMARY | 2024-04-21 21:00 | XMS_ITS | Encounter Summary ---
Author Organization [facility] [place] [address] Care Team Providers Care Verification Clerk Name Role Phone Darren Garcia DO Primary Care Provider [phone] Reason for Visit * Reason Comments Medication Refill Encounter Details Date Type Department Care Team (Late Contact Info) Description 05/12/2022 Refill Dermatology at [address] [phone] Douglas Carreon MD [address] [place] [address], [facility] [place] [address] Social History Tobacco Use Types Packs/Day Years [...] 8:00 AM EST Office Visit Dermatology at [address] [phone] Douglas Carreon MD [address] [place] [address], [facility] [place] [address] documented as of this encounter Visit Diagnoses Not on filedocumented in this encounter Care Teams Verification Clerk Relationship Specialty Start Date End Date Darren Garcia DO [address] [facility] 1 [place], [place] [address] PCP - General Family Medicine 05/17/20 documented as of this encounter
--- OUTSIDE RECORDS SUMMARY | 2024-04-21 21:00 | XMS_ITS | Encounter Summary ---
[place] [address] Care Team Providers Care Quality Control Head Name Role Phone Angela Pelaez MD Primary Care Provider [phone] Reason for Visit * Reason Comments Skin Check Encounter Details Date Type Department Care Team (Late st Contact Info) Description 11/17/2016 3:00 PM EDT Office Visit Dermatology at [address] [phone] Douglas Carreon MD [address] [facility], [place] [address] Lymphomatoid papulosis; HSV (herpes simplex virus) anogenital infection Social History Tobacco Use Types Packs/Day Years Used Date Smoking Tobacco: Every Day Alcohol Use Standard Drinks/Week Comments Not Asked 0 (1 standard drink = 0.6 oz pur e alcohol) Sex and Gender Information Value Date Recorded Sex Assigned at Not on file Gender Identity Not on file Sexual Orientation Not on file documented as of this encounter Progress Notes * Douglas Carreon MD - 11/17/2016 3:00 PM EDT PROBLEMS: 1. Belated yearly skin checkup. 2. History of punch biopsy consistent with lymphomatoid papulosis, back, with ongoing erythematous papules. 3. History of genital HSV, on Valtrex, taking 500 mg once daily. 4. History of mother who of complications of severe lupus. Ponce follows up and is doing well, has been having a fair amount of stress recently. He states that his LP seems to be a bit worse. However, his HSV is well-controlled and he is just taking one 500-mg dose of Valtrex a day. He is being treated by Dhara Cheng MD, for RA and is doing well with a newly prescribed (1 year ago) Plaquenil therapy approach. 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 Physical examination reveals a pleasant 46-year-old gentleman who is well-tanned on the face and arms. He has papules of probable lymphomatoid papulosis on his legs and back. He has no active HSV. He has a solar lentigo on the right nasal ala and one on the left medial cheek. ASSESSMENT/PLAN: 1. Lymphomatoid papulosis. a. Recommend that I continue to see him on a yearly basis. b. Discussed the potential pre-malignant nature of this with him today. c. Will begin a trial of fluocinonide 0.05% cream to apply b.i.d. to pruritic, symptomatic areas of LP on legs and back. Sixty grams dispensed with 5 refills. 2. HSV. a. Continue current therapy of valacyclovir, which he should have another year's supply of remaining. He is taking 500 mg 1 p.o. daily. 3. Solar lentigos, facial. a. Recommend that patient faithfully use sunscreen. Recommend Neutrogena Sunscreen SPF30 with Helioplex. NOTE: Patient prefers to avoid oral therapies for his LP and I agree. Return to clinic in 1 year. CC: Anthony Pelaez MD documented in this encounter Plan of Treatment Upcoming Encounters Date Type Department Care Team (Late st Contact Info) Description 07/04/2024 8:00 AM EST Office Visit Dermatology at [place] 580 [place] [phone] Douglas Carreon MD [address] [facility], [place] [address] documented as of this encounter Visit Diagnoses Diagnosis Lymphomatoid papulosis Other specified disorder of skin HSV (herpes simplex virus) anogenital infection Herpes simplex without mention of complication documented in this encounter Care Teams Quality Control Head Relationship Specialty Start Date End Date Angela Pelaez MD PCP - General 10/20/14 05/14/19 documented as of this encounter
--- OUTSIDE RECORDS SUMMARY | 2024-04-21 21:00 | XMS_ITS | Encounter Summary ---
Author Organization [facility] [place] [address] Care Team Providers Care Customer Support Specialist Name Role Phone Darren Garcia DO Primary Care Provider [phone] Reason for Visit * Reason Comments Medication Refill Encounter Details Date Type Department Care Team (Late Contact Info) Description 05/19/2021 Refill Dermatology at [address] [phone] Douglas Carreon MD [address] [place] [address], [facility] [place] [address] Social History Tobacco Use Types Packs/Day Years [...] 8:00 AM EST Office Visit Dermatology at [address] [phone] Douglas Carreon MD [address] [place] [address], [facility] [address] documented as of this encounter Visit Diagnoses Not on filedocumented in this encounter Care Teams Customer Support Specialist Relationship Specialty Start Date End Date Darren Garcia DO [address] [facility] 1 [place], [place] [address] PCP - General Family Medicine 05/17/20 documented as of this encounter
--- OUTSIDE RECORDS SUMMARY | 2024-04-21 21:00 | XMS_ITS | Encounter Summary ---
[place] [address] Care Team Providers Care Fringing Machine Operator Name Role Phone Darren Garcia DO Primary Care Provider Encounter Details Date Type Department Care Team (Late st Contact Info) Description 06/28/2023 Refill Dermatology at [address] [phone] Liudmila Stone, HELMET BINDER Social History Tobacco Use Types Packs/Day Years [...] 8:00 AM EST Office Visit Dermatology at [address] [phone] Douglas Carreon MD [address] [place] [address], [place] [address] documented as of this encounter Visit Diagnoses Not on filedocumented in this encounter Care Teams Fringing Machine Operator Relationship Specialty Start Date End Date Darren Garcia DO [address] [facility] 1 [place] [address] PCP - General Family Medicine 05/17/20 documented as of this encounter
--- OUTSIDE RECORDS SUMMARY | 2024-04-21 21:00 | XMS_ITS | Encounter Summary ---
[place] [address] Care Team Providers Care Java Manager Name Role Phone Darren Garcia DO Primary Care Provider [phone] Encounter Details Date Type Department Care Team (Late st Contact Info) Description 05/17/2021 Refill Dermatology at [address] [phone] Liudmila Stone, PHOTOVOLTAIC FABRICATION TECHNICIAN Social History Tobacco Use Types Packs/Day Years [...] 8:00 AM EST Office Visit Dermatology at [address] [phone] Douglas Carreon MD [address] [place] [address], [place] [address] documented as of this encounter Visit Diagnoses Not on filedocumented in this encounter Care Teams Java Manager Relationship Specialty Start Date End Date Darren Garcia DO [address] [facility] 1 [place] [address] PCP - General Family Medicine 05/17/20 documented as of this encounter
--- OUTSIDE RECORDS SUMMARY | 2024-04-21 21:00 | XMS_ITS | Encounter Summary ---
Author Organization [facility] [place] [address] Care Team Providers Care Senior It Security Analyst Name Role Phone Darren Garcia DO Primary Care Provider [phone] Encounter Details Date Type Department Care Team (Latest Contact Info) Description 06/28/2023 Travel Social History Tobacco Use Types Packs/Day [...] 8:00 AM EST Office Visit Dermatology at [place] [address] [place] [address] Douglas Carreon MD [address], [place] [address] documented as of this encounter Visit Diagnoses Not on filedocumented in this encounter Care Teams Senior It Security Analyst Relationship Specialty Start Date End Date Darren Garcia DO [address] [place] [address] PCP - General Family Medicine 05/17/20 documented as of this encounter
--- OUTSIDE RECORDS SUMMARY | 2024-04-21 21:00 | XMS_ITS | Encounter Summary ---
[place] [address] Care Team Providers Care Coil Tester Name Role Phone Maurisio Beckett MD Primary Care Provider Reason for Visit * Reason Comments Skin Check Encounter Details Date Type Department Care Team (Late st Contact Info) Description 04/24/2013 4:15 PM EDT Office Visit Dermatology [address] [place] [address] [address] [place], [place] [phone] Douglas Carreon MD [address], [place] [address] Herpes simplex (Primary Dx) Social History Tobacco Use Types Packs/Day Years [...] Progress Notes * Douglas Carreon MD - 04/24/2013 4:35 PM EDT Problems: 1. Yearly skin checkup. 2. History of biopsy consistent with lymphomatoid papulosis. 3. 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 Ponce follows up and has been doing well. He continues to get papules that come and go on the arms, the back, and the legs. He has not noted any particular trigger for them. They do tend to itch, but if he does not scratch them they will heal within a couple of days. He has not been using any cream for them. Regarding his HSV, he has been taking Valtrex one dose a day, and this seems to keep things under pretty good control for him. He does not need b.i.d. dosing. Physical examination reveals a pleasant, 43-year-old gentleman who has a couple of excoriated papules of probable lymphomatoid papulosis on the legs and arms. However, most of the areas present on his back have healed uneventfully, and there are perhaps five or six present today. He has no active HSV. 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 Assessment and Plan: 1. Lymphomatoid papulosis. a. We will continue to keep a close eye on this yearly. b. The patient knows that if a lesion develops and does not heal within a few days but continues to grow and enlarge that he should be seen back more expeditiously. c. No trigger identified for these; simply follow along clinically. 2. HSV. a. Continue current therapy, valacyclovir, taking 500 mg one pill p.o. daily. We faxed #180 for a six-month supply for him into [facility] on April 03, 2013, so he should be set for a year on this. b. [id number] reminder in one year. COPY: Maurisio Beckett M.D. documented in this encounter Plan of Treatment Upcoming Encounters Date Type Department Care Team (Late st Contact Info) Description 07/04/2024 8:00 AM EST Office Visit Dermatology at [address] [phone] Douglas Carreon MD [address] [facility], [place] [address] documented as of this encounter Visit Diagnoses Diagnosis Herpes simplex- Primary Herpes simplex without mention of complication documented in this encounter Care Teams Coil Tester Relationship Specialty Start Date End Date Maurisio Beckett MD [address] [facility] 1 [place] [address] PCP - General 10/16/11 10/19/14 documented as of this encounter
--- OUTSIDE RECORDS SUMMARY | 2024-04-21 21:00 | XMS_ITS | Referral Summary ---
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); High risk medication use 04/10/2024 11:00 EDT Office Visit [facility] Rheumatology [address] [place] [address] Dhara Cheng MD 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) (HCC) (Primary Dx); Macrocytosis without anemia; Other chest pain; Long-term use of immunosuppressant medication 02/28/2024 Telephone [facility] Rheumatology [address] [place], [place] [address] Dhara Cheng MD Immunizations 02/08/2024 Telephone [facility] Rheumatology [address] [place] [address] Dhara Cheng MD Medications Refill 02/08/2024 Refill [facility] Rheumatology [address] [place] [address] Dhara Cheng MD Medications Refill from Last 3 Months Allergies No known active allergies Medications Medication Sig Dispensed Refills Start Date End Date Status valACYclovir (VALTREX) 500 mg tablet 1 tab(s) orally every morning Active folic acid (FOLVITE) 1 mg tablet TAKE ONE TABLET BY MOUTH EVERY DAY 90 Tablet 3 02/08/2024 Active methotrexate 2.5 mg tablet TAKE 6 TABLETS BY MOUTH ONCE WEEKLY 72 Tablet 02/08/2024 Active hydroxychloroquine (PLAQUENIL) 200 mg tablet TAKE ONE TABLET BY MOUTH EVERY DAY 90 Tablet 3 02/08/2024 Active Active Problems Problem Noted Date Diagnosed Date Essential hypertension 08/31/2022 Tobacco use 03/30/2022 Anogenital herpesviral infection, unspecified Lymphomatoid papulosis, 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 Long-term use of immunosuppressant medication Seropositive rheumatoid arth ritis of multiple joints (HCC-CMS) 08/12/2019 Macrocytosis without anemia 08/12/2019 Immunizations Name Administration Dates Next Due Covid-19 mRNA Vaccine (MODER NA COVID-19) PF 0.5 ml IM (12 yrs+) 12/13/2020,11/15/2020 Td (Adult) 5 Lf Vaccine (TEN IVAC) Preservative Free =>7yo IM 07/23/2001 Tdap Vaccine =>7YO IM 10/25/2016 Social History Tobacco Use Types Packs/Day Years Used Date Smoking Tobacco: Every Day Cigarettes Smokeless Tobacco: Never Tobacco Cessation:Ready to Q uit: Not Asked; Counseling Given: Not Answered Comments:just over 1 pk per day Interpersonal Safety Answer Date Record ed Physically Hurt Never 02/22/2020 Verbally Threaten Not on file 02/22/2020 Sex and Gender Information Value Date Recorded Sex Assigned at Not on file Gender Identity Male 08/13/2019 8:28 EST Sexual Orientation Not on file Last Filed Vital Signs Vital Sign Reading Time Taken Comments Blood Pressure 120/64 04/10/2024 1051 EDT Pulse 71 04/10/2024 1051 EDT Temperature 36.6 ??C (97.9 ??F) 04/10/2024 1051 EDT Respiratory Rate - - Oxygen Saturation 97% 04/10/2024 1051 EDT Inhaled Oxygen Concentration - - Weight 82.2 kg (181 lb 5.3 oz) 04/10/2024 1051 E DT Height 172.7 cm (5' 7.99) 04/10/2024 1051 EDT Body Mass Index 27.58 04/10/2024 1051 EDT Functional Status Functional Status Response Date of [...] concentrating, remembering, or making decisions? 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) High risk medication use COMPLETE BLOOD COUNT AND DIFFERENTIAL Routine 04/10/2024 10:18 EDT 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) High risk medication use from Last 3 Months Results * (ABNORMAL) COMPLETE BLOOD COUNT AND DIFFERENTIAL (04/10/2024 10:18 EDT) WBC 12.20(H) 4.00 - 10.40 K/cmm 04/10/2024 10:49 EDT [facility] RBC 4.45 4.36 - 5.78 M/cmm 04/10/2024 10:49 T [facility] Hemoglobin 15.0 13.8 - 17.3 g/dL 04/10/2024 10:49 [facility] HCT 44.8 39.5 - 50.2 % 04/10/2024 10:49 [facility] MCV 101(H) 81 - 95 fL 04/10/2024 10:49 [facility] MCH 33.7(H) 27.6 - 33.0 pg 04/10/2024 10:49 [facility] MCHC 33.5 32.8 - 36.4 g/dL 04/10/2024 10:49 [facility] RDW-CV 13.9 <14.2 % 04/10/2024 10:49 [facility] RDW-SD 50.7(H) <46.0 fl 04/10/2024 10:49 [facility] PLT 404(H) 141 - 377 K/cmm 04/10/2024 10:49 [facility] MPV 9.1(L) 9.5 - 12.7 fL 04/10/2024 10:49 [facility] % Neutrophils 61.0 Not Indicated % 04/10/2024 10:49 [facility] % Lymphocytes 26.1 Not Indicated % 04/10/2024 10:49 [facility] % Monocytes 8.5 Not Indicated % 04/10/2024 10:49 [facility] % Eosinophils 3.4 Not Indicated % 04/10/2024 10:49 [facility] % Basophils 0.6 Not Indicated % 04/10/2024 10:49 [facility] % Immature Grans 0.4 <0.9 % 04/10/2024 10:49 [facility] Absolute Neutrophils 7.44 2.20 - 8.85 K/cmm 04/10/2024 10:49 [facility] Absolute Lymphocytes 3.19 1.09 - 3.30 K/cmm 04/10/2024 10:49 [facility] Absolute Monocytes 1.04(H) 0.10 - 0.80 K/cmm 04/10/2024 10:49 [facility] Absolute Eosinophils 0.41 0.03 - 0.61 K/cmm 04/10/2024 10:49 [facility] ABS Basophils 0.07 0.01 - 0.11 K/cmm 04/10/2024 10:49 [facility] Absolute Immature Grans 0.05 0.00 - 0.06 K/cmm 04/10/2024 10:49 [facility] Type of Differential: Auto 04/10/2024 10:49 [facility] Blood VENOUS BLOOD / Unknown Venipuncture / Unknown 04/10/2024 10:18 EDT 04/10/2024 10:46 EDT Dhara Cheng MD PACKAGES & DNA PROBE ORDERABLES Performing Organization Address [facility]/ZIP Co de Phone Number [facility] [address] [place] [address] * C REACTIVE PROTEIN (04/10/2024 10:18 EDT) Pathologist [facility] C-Reactive Protein <5.0 <10.0 mg/L 04/10[facility]24 [facility] Blood VENOUS BLOOD / Unknown Venipuncture / Unknown 04/10/2024 10:18 EDT 04/10/2024 10:22 EDT Dhara Cheng MD CHEMISTRY & BLOOD GA S ORDERABLES Performing Organization Address [facility]/ZIP Co de Phone Number [facility] [address] [place] [address] * COMPREHENSIVE METABOLIC PANEL (CMP) (04/10/2024 10:18 EDT) Sodium 140 136 - 145 mmol/L 04/10/2024 11:03 EDT [facility] Potassium 4.2 3.5 - 5.0 mmol/L 04/10/2024 11:03 [facility] Chloride 105 96 - 110 mmol/L 04/10/2024 11:03 [facility] CO2 Total 25 22 - 32 mmol/L 04/10/2024 11:03 [facility] Glucose 85 70 - 99 mg/dl 04/10/2024 11:03 [facility] BUN 14 10 - 26 mg/dL 04/10/2024 11:03 [facility] Creatinine 0.71 0.66 - 1.25 mg/dL 04/10/2024 11:03 [facility] eGFR 108 >60 mL/min/1.7 3m2 04/10/2024 11:03 [facility] Total Protein 7.0 6.3 - 8.2 g/dL 04/10/2024 11:03 [facility] Albumin 4.2 3.4 - 4.9 g/dL 04/10/2024 11:03 [facility] Alkaline Phosphatase 77 38 - 126 U/L 04/10/2024 11:03 [facility] AST 27 15 - 46 U/L 04/10/2024 11:03 [facility] ALT 26 <50 U/L 04/10/2024 11:03 [facility] Bilirubin, Total <0.5 <1.4 mg/dL 04/10/20 11:03 [facility] Calcium 9.7 8.5 - 10.5 mg/dL 04/10/2024 11:03 [facility] Albumin/Globulin Ratio 1.5 1.0 - 2.5 04/10/2024 11:03 [facility] Anion Gap 10 5 - 14 mmol/L 04/10/2024 11:03 [facility] Blood VENOUS BLOOD / Unknown Venipuncture / Unknown 04/10/2024 10:18 EDT 04/10/2024 10:22 EDT Dhara Cheng MD CHEMISTRY & BLOOD GA S ORDERABLES [facility] [address] [place] [address] from Last 3 Months Care Teams Manager Performance Improvement Relationship Specialty Start Date End Date Chiquita Brooks NP PCP - General 09/29/14
--- OUTSIDE RECORDS SUMMARY | 2024-04-21 21:00 | XMS_ITS | Encounter Summary ---
Author Organization [facility] Address [facility] [place] [address] Care Team Providers Care Knee Bolter Name Role Phone JoseDarren brandon Primary Care Provider [phone] Encounter Details Date Type Department Care Team (Latest Contact Info) Description 06/26/2022 8:46 PM EST - 06/26/2022 11:59 PM EST Hospital [place] [id number] Discharge Disposition: Home Social History Tobacco Use [...] Sig Dispensed Refills Start Date End Date hydroquinone 4 % Cream Apply twice daily to affected facial areas 15 g 3 05/17/2020 folic acid (FOLVITE) 1 mg Tablet TAKE ONE TABLET BY MOUTH DAILY 3 04/22/2019 metHOTREXate 2.5 mg Tablet TAKE 6 TABLETS BY MOUTH ONCE A WEEK 1 04/15/2019 valACYclovir (Valtrex) 500 mg Tablet Take 1 tablet by mouth daily. 90 tablet 3 06/26/2022 06/28/2023 PLAQUENIL 200 mg Tablet TAKE TWO TABLETS BY MOUTH ONCE DAILY 1 10/27/2016 06/28/2023 documented as of this encounter Plan of Treatment Upcoming Encounters Date Type Department Care Team (Late st Contact Info) Description 07/04/2024 8:00 AM EST Office Visit Dermatology at [address] [place] [id number] Douglas Carreon MD [address], [place] [address] documented as of this encounter Procedures Procedure Name Priority Date/Time Associated Diagnosis Comments SURGICAL PATHOLOGY REPORT Routine 06/26/2022 10:15 AM EST documented in this encounter Results * Surgical Pathology Report (06/26/2022 10:15 AM EST) Final Diagnosis [id number] ? Location: [facility] The signing pathologist has (i) examined the relevant preparation(s) for the specimen(s) and (ii) rendered or confirmed the diagnosis(es). . ?Surgical Pathology DIAGNOSIS Right nasal ala, skin shave biopsy: - Subtle ??atypical intraepidermal melanocytic proliferation, ?? extending to the peripheral specimen edge (see discussion) - Associated actinic keratosis Electronically signed by: ?Lenora Bridges MD Verified: ??07/07/2022 11:57 ??Dermatopathologist Performed at: ??-[facility] Dept. of Pathology, [place] [address] Piece Worker: Rajni Scherer MD, FCAP, ??CLIA Certificate: [id number] DISCUSSION Sections show increase in junctional melanocytes including a number of enlarged and multinucleated cells in association with solar elastosis and features of actinic keratosis. Given the lack of confluent growth of melanocytes and negative PRAME expression, the findings are not diagnostic of melanoma in situ. While it is difficult to exclude a precursor atypical melanocytic lesion, the differential diagnosis could also include melanocyte hyperplasia in the setting of sun-damaged skin. ??Clinical correlation is needed to determine if this sample is novelties sales representative of the entire lesion. ?? At least close clinical follow-up is warranted with repeat sampling/complete removal of any residual or recurrent lesion. ADDITIONAL STUDIES Multiple step-leveled sections were reviewed. Melan-A highlights melanocytes. PRAME is negative. ??This case was also reviewed by multiple intradepartmental dermatopathologists for consensus diagnosis. SPECIMEN(S) SUBMITTED A - R nasal ala, skin shave biopsy Referring Identifier: ?(not provided) CLINICAL INFORMATION Seborrheic keratosis, solar lentigo, rule out MM SPECIMEN PROCESSING A - Labeled/Fixative: R nasal ala, formalin. Quantity/Size: ??Single, 0.7 x 0.4 x 0.1 cm. Tissue Description: Shave of pantoja-brown speckled white skin. Sections/Processing: Inked, trisected and entirely submitted in 1 cassette labeled A1. ??nrl 07/07/2022 11:[address] [facility] SPECIMEN FROM SKIN / Unknown 06/26/2022 10:15 AM EST 06/26/2022 10:15 AM EST Douglas Carreon MD PATHOLOGY/CYTOLOGY O R[facility]AM[facility] [place] [id number] [facility] [place] [address] documented in this encounter Visit Diagnoses Not on filedocumented in this encounter Care Teams Knee Bolter Relationship Specialty Start Date End Date Darren Garcia DO [address] [place] [address] PCP - General Family Medicine 05/17/20 documented as of this encounter
--- OUTSIDE RECORDS SUMMARY | 2024-04-21 21:00 | XMS_ITS | Clinical Summary ---
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) ([facility]) (Primary Dx); Macrocytosis without anemia; Other chest pain; Long-term use of immunosuppressant medication 04/10/2024 10:10 EDT Phlebotomy Only [facility] - Outpatient Phlebotomy Drawing [address] [place] [address] Lab, [facility] Seropositive rheumatoid arthritis of multiple joints ([facility]-CMS); High risk medication use 04/10/2024 Telephone [facility] Rheumatology [address] [place] [address] Lita Whittington RN Follow-up 02/28/2024 Telephone [facility] Rheumatology [address] [place] [address] Dhara Cheng MD Immunizations 02/08/2024 Telephone [facility] Rheumatology [address] [place] [address] Dhara Cheng MD Medications Refill 02/08/2024 Refill [facility] Rheumatology [address] [place] [address] Dhara Cheng MD Medications Refill from Last 3 Months Immunizations Name Administration Dates Next Due Covid-19 mRNA Vaccine (MODER NA COVID-19) PF 0.5 ml IM (12 yrs+) 12/13/2020,11/15/2020 Td (Adult) 5 Lf Vaccine (TEN IVAC) Preservative Free =>7yo IM 07/23/2001 Tdap Vaccine =>7YO IM 10/25/2016 Surgical History Surgery Date Site/Laterality Comments CARPAL TUNNEL RELEASE 07/23/2014 - 07/22/[address] Medical History Medical History Date Comments Carpal tunnel syndrome of right wrist 2014 s/p carpal tunnel release Lyme disease 2019 With erythema mi grans; treated, cured Family History Medical History Relation Comments Rheumatologic Disease Mother Relation Status Comments Mother Social History Tobacco Use Types Packs/Day Years [...] 8:28 EST Sexual Orientation Not on file Obstetrics History Last Filed Vital Signs Vital Sign Reading [...] Body Mass Index 27.58 04/10/2024 1051 EDT Plan of Treatment Upcoming Encounters Date Type Department Care Team (Late st Contact Info) Description 09/11/2024 8:00 EST Office Visit [facility] Rheumatology [address] [place] [address] Dhara Cheng MD [address] [facility] [address] [place] [address] Health Maintenance Due Date Last Done Comments Hepatitis C Screen 1969 Pneumococcal Immunization (1 of 2 - PCV) 1975 Hepatitis B Vaccine (1 of 3 - 19+ 3-dose series) 01/17/1988 COVID-19 Vaccine ( - season) 2024, 11/15/2020 Procedures Procedure Name Priority Date/Time Associated Diagnosis Comments C REACTIVE PROTEIN Routine 04/10/2024 10 :18 EDT Seropositive rheumatoid arthritis of multiple joints ([facility]-CMS) High risk medication use COMPREHENSIVE METABOLIC PANEL [...] 12.20(H) 4.00 - 10.40 K/cmm 04/10/2024 10:49 [facility] RBC 4.45 4.36 - 5.78 M/cmm 04/10/2024 10:49 [facility] Hemoglobin 15.0 13.8 - 17.3 g/dL 04/10/2024 10:49 [facility] HCT 44.8 39.5 - 50.2 % 04/10/2024 10:49 [facility] MCV 101(H) 81 - 95 fL 04/10/2024 10:49 [facility] MCH 33.7(H) 27.6 - 33.0 pg 04/10/2024 10:49 [facility] MCHC 33.5 32.8 - 36.4 g/dL 04/10/2024 10:49 [facility] RDW-CV 13.9 <14.2 % 04/10/2024 10:49 [facility] RDW-SD 50.7(H) <46.0 fl 04/10/2024 10:49 [facility] PLT 404(H) 141 - 377 K/cmm 04/10/2024 10:49 [facility] MPV 9.1(L) 9.5 - 12.7 fL 04/10/2024 10:49 [facility] % Neutrophils 61.0 Not Indicated % 04/10/2024 10:49 [facility] % Lymphocytes 26.1 Not Indicated % 04/10/2024 10:49 [facility] % Monocytes 8.5 Not Indicated % 04/10/2024 10:49 [facility] % Eosinophils 3.4 Not Indicated % 04/10/2024 10:49 [facility] % Basophils 0.6 Not Indicated % 04/10/2024 10:49 [facility] % Immature Grans 0.4 <0.9 % 04/10/2024 10:49 [facility] Absolute Neutrophils 7.44 2.20 - 8.85 K/cmm 04/10/2024 10:49 [facility] Absolute Lymphocytes 3.19 1.09 - 3.30 K/cmm 04/10/2024 10:49 [facility] Absolute Monocytes 1.04(H) 0.10 - 0.80 K/cmm 04/10/2024 10:49 [facility] Absolute Eosinophils 0.41 0.03 - 0.61 K/cmm 04/10/2024 10:49 [facility] ABS Basophils 0.07 0.01 - 0.11 K/cmm 04/10/2024 10:49 [facility] Absolute Immature Grans 0.05 0.00 - 0.06 K/cmm 04/10/2024 10:49 [facility] Type of Differential: Auto 04/10/2024 10:49 [facility] Blood VENOUS BLOOD / Unknown Venipuncture / Unknown 04/10/2024 10:18 EDT 04/10/2024 10:46 EDT Dhara Cheng MD PACKAGES & DNA PROBE ORDERABLES Performing Organization Address City/[facility]/ZIP Co de Phone Number [facility] [address] [place] [address] * C REACTIVE PROTEIN (04/10/2024 10:18 EDT) C-Reactive Protein <5.0 <10.0 mg/L 04/10/2024 11:03 EDT [facility] Blood VENOUS BLOOD / Unknown Venipuncture / Unknown 04/10/2024 10:18 EDT 04/10/2024 10:22 EDT Dhara Cheng MD CHEMISTRY & BLOOD GA S ORDERABLES Performing Organization Address City/[facility]/ZIP Co de Phone Number [facility] [address] [place] [address] * COMPREHENSIVE METABOLIC PANEL (CMP) (04/10/2024 10:18 [facility]) Sodium 140 136 - 145 mmol/L 04/10/2024 11:03 [facility] Potassium 4.2 3.5 - 5.0 mmol/L 04/10/2024 11:03 [facility] Chloride 105 96 - 110 mmol/L 04/10/2024 11:03 [facility] CO2 Total 25 22 - 32 mmol/L 04/10/2024 11:03 [facility] Glucose 85 70 - 99 mg/dl 04/10/2024 11:03 [facility] BUN 14 10 - 26 mg/dL 04/10/2024 11:03 [facility] Creatinine 0.71 0.66 - 1.25 mg/dL 04/10/2024 11:03 [facility] eGFR 108 >60 mL/min/1.7 3m2 04/10/2024 11:03 [facility] Total Protein 7.0 6.3 - 8.2 g/dL 04/10/2024 11:03 [facility] Albumin 4.2 3.4 - 4.9 g/dL 04/10/2024 11:03 [facility] Alkaline Phosphatase 77 38 - 126 U/L 04/10/2024 11:03 [facility] AST 27 15 - 46 U/L 04/10/2024 11:03 [facility] ALT 26 <50 U/L 04/10/2024 11:03 [facility] Bilirubin, Total <0.5 <1.4 mg/dL 04/10/20 11:03 [facility] Calcium 9.7 8.5 - 10.5 mg/dL 04/10/2024 11:03 [facility] Albumin/Globulin Ratio 1.5 1.0 - 2.5 04/10/2024 11:03 [facility] Anion Gap 10 5 - 14 mmol/L 04/10/2024 11:03 EDT [facility] Blood VENOUS BLOOD / Unknown Venipuncture / Unknown 04/10/2024 10:18 EDT 04/10/2024 10:22 EDT Dhara Cheng MD CHEMISTRY & BLOOD GA S ORDERABLES [facility] [address] [place] [address] from Last 3 Months Care Teams Commercial Banker Relationship Specialty Start Date End Date Chiquita Brooks NP [facility] - General 09/29/14
--- OUTSIDE RECORDS SUMMARY | 2024-04-21 21:00 | XMS_ITS | Encounter Summary ---
Author [place] [address] Care Team Providers Care Customer Development Manager Name Role Phone Maurisio Beckett MD Primary Care Provider [phone] Reason for Visit * Reason Comments Cyst Encounter Details Date Type Department Care Team (Late st Contact Info) Description 12/08/2011 4:30 PM EDT Office Visit Dermatology [address] [place] [address] [address] [place], [place] [phone] Douglas Carreon MD [address], [place] [address] Follicular cyst (Primary Dx) Social History Tobacco Use Types [...] Progress Notes * Douglas Carreon MD - 12/08/2011 6:00 PM EDT Clinical Impression: Follicular cyst, right lower back. Size: 1 cm. Deep Suture: None. Surface Suture: 4-0 Ethilon. Followup will be in 10 to 14 days for suture removal and biopsy results. Indications for surgery, possible adverse outcomes, and activity restrictions were discussed. Informed verbal consent was obtained. The skin surface was prepared with 4% chlorhexidine and draped in the usual sterile manner. Local anesthesia with 1% lidocaine, 1:100,000 epinephrine, and 0.1 mEq/mL bicarbonate. Using a #15 blade, an elliptical incision was carried out over the top of the lesion. Undermining was performed peripherally. Hemostasis with electrodesiccation. Specimen was submitted to Pathology. Wound dressed, and wound care reviewed. End length of the suture line was 2.5 cm. Follow up in 10 to 14 days for suture removal by Dr. Carreon in [facility]. Note: The patient asks about his rash on the upper torso, which I had biopsied and showed a likely hypersensitivity reaction. It continues unabated without significant change despite the clobetasol cream. I advised him to try a little bit longer, and we will reassess after another month. If this continues, may consider consultation at [facility] Pathology Addendum per [facility] 12/17/11 : Follicular Cyst documented in this encounter Procedure Notes * Provider, Scanning - 12/29/2011 1:14 PM EDTAssociated Order(s): SCAN DOC: SURGICAL PATHOLOGY documented in this encounter Miscellaneous Notes * Miscellaneous - Wally, Soap Press Feeder - 12/22/2011 1:34 PM EDT documented in this encounter Plan of Treatment Upcoming Encounters Date Type Department Care Team (Late st Contact Info) Description 07/04/2024 8:00 AM EST Office Visit Dermatology at [address] [place] [address] Douglas Carreon MD [address] [place] [address], [place] [address] documented as of this encounter Procedures Procedure Name Priority Date/Time Associated Diagnosis Comments SURGICAL PATHOLOGY SCAN 12/29/2011 1:14 PM EDT documented in this encounter Results * SCAN DOC: SURGICAL PATHOLOGY (12/29/2011 1:14 PM EDT) Narrative 12/29/2011 1:14 PM EDT Procedure Note Provider, Scanning - 12/29/2011 1:14 PM EDT Scanning Provider MEDIA MGR SCAN EXT O RDR/RSLT documented in this encounter Visit Diagnoses Diagnosis Follicular cyst- Primary Follicular cyst of ovary documented in this encounter Care Teams Customer Development Manager Relationship Specialty Start Date End Date Maurisio Beckett MD [address] [place] [address] PCP - General 10/16/11 10/19/14 documented as of this encounter
--- OUTSIDE RECORDS SUMMARY | 2024-04-21 21:00 | XMS_ITS | Encounter Summary ---
Author Organization [facility] Address [address] [place] [address] Care Team Providers Care Excel Expert Name Role Phone RafimattneryChiquita [employer] AP[employer]ISER Primary Care Provider [phone] Reason for Visit * Reason Comments Follow-up Seropositive rheumat oid arthritis of multiple joints, Pt father just passed and he has new symptom of tightness in his chest. He states he will make an appt with pcp. Encounter Details Date Type Department Care Team (Latest Contact Info) Description 04/10/2024 11:00 EDT Office Visit [facility] Rheumatology [address] [place] [address] Dhara Cheng MD [address] [facility] [address] [place] [address] 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) (HCC) (Primary Dx); Macrocytosis without anemia; Other chest pain; Long-term use of immunosuppressant medication Social History Tobacco Use Types Packs/Day Years [...] on file documented as of this encounter Last Filed Vital Signs Vital Sign Reading [...] Body Mass Index 27.58 04/10/2024 1051 EDT documented in this encounter Functional Status Functional Status Response [...] No 08/23/2020 documented as of this encounter Patient Instructions * Patient Instructions* Dhara Cheng MD - 04/10/2024 11:00 EDT Please call your PCP today and let them know about the chest pain Check labs prior to next visit documented in this encounter Progress Notes * Dhara Cheng MD - 04/10/2024 1100 EDT [facility] Rheumatology Chief Complaint Patient presents with Follow-up Seropositive rheumatoid arthritis of multiple joints, Pt father just passed and he has new symptom of tightness in his chest. He states he will make an appt with pcp. HPI: Seropositive RA. Ponce has signs and symptoms suggesting rheumatoid arthritis. CCP>250, RF 1510,RACH 160 centromere pattern, mildly low C4 complement, negative dsDNA, negative anti-PHILIP. No significant erosive disease on plain films of hands/feet. With the positive RACH with centromere pattern, itis possible that he may develop an overlap syndrome. Started MTX in 02/2018, added to HCQ, and this w orked well. INTERVAL HISTORY: Ponce returns for 4 month follow up. No medication changes were made at the last visit. Today, Ponce says his father earlier this week, and he had been caring for him. Ponce says in the evening, he has noticed discomfort in his chest, occasionally left upper arm and left jaw. Says when he lays down, he feels better. Also has noticed tightening of muscles in upper back and neck. Says he had similar symptoms in the past when going through a divorce. Ponce says his arthritis has been doing very well except might be getting nodules at his forearms, near his elbows. At times has some tingling in his feet. I have reviewed the patient's problem list and have reconciled their medication list. Social History: Still smoking just over a pack per day. Hasn't been able to cut down. Went to [facility], [facility], [facility], [facility] in February as well as [facility] on the way back. Review of Systems: Weight is stable. 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 Follows with Dr Carreon annually -- last visit 06/28/23; note reviewed by me. Has follow up in Jun. Eye exam for Plaquenil monitoring was done, 07/05/23, [facility] [place]; no Plaquenil toxicity noted. Physical Examination: BP 120/64 (BP Cuff Location: Right arm, BP Patient Position: Sitting, BP Cuff Sizes: Adult, long) Pulse 71 Temp 36.6 ??C (97.9 ??F) (Tympanic) Ht 172.7 cm (67.99) Wt 82.2 kg (181 lb 5.3 oz) SpO2 97% BMI 27.58 kg/m?? EYES: Conjunctivae not injected. NECK: No lymphadenopathy. LUNGS: Clear to auscultation bilaterally. CARDIOVASCULAR: Regular rate and rhythm. No murmur. No peripheral edema. JOINT EXAM: No synovitis of finger joints; full passive painless flexion of digits. No active triggering or passive triggering of fingers. No discomfort with ROM wrists. Mild reduction in ROM shoulders, without pain, chronic. Mild bilateral flexion contractures of elbows, chronic. Reduction in external rotation of right more than left hip, without groin pain. Knee flexion is full, no discomfort, bilaterally. SKIN: No obvious skin lesions on exam today. Labs: Phlebotomy Only on 04/10/2024 Component Date Value Ref Range Status WBC 04/10/2024 12.20 (H) 4.00 - 10.40 K/cmm Final RBC 04/10/2024 4.45 4.36 - 5.78 M/cmm Final Hemoglobin 04/10/2024 15.0 13.8 - 17.3 g/dL Final HCT 04/10/2024 44.8 39.5 - 50.2 % Final MCV 04/10/2024 101 (H) 81 - 95 fL Final MCH 04/10/2024 33.7 (H) 27.6 - 33.0 pg Final MCHC 04/10/2024 33.5 32.8 - 36.4 g/dL Final RDW-CV 04/10/2024 13.9 <14.2 % Final RDW-SD 04/10/2024 50.7 (H) <46.0 fl Final PLT 04/10/2024 404 (H) 141 - 377 K/cmm Final MPV 04/10/2024 9.1 (L) 9.5 - 12.7 fL Final % Neutrophils 04/10/2024 61.0 Not Indicated % Final % Lymphocytes 04/10/2024 26.1 Not Indicated % Final % Monocytes 04/10/2024 8.5 Not Indicated % Final % Eosinophils 04/10/2024 3.4 Not Indicated % Final % Basophils 04/10/2024 0.6 Not Indicated % Final % Immature Grans 04/10/2024 0.4 <0.9 % Final Absolute Neutrophils 04/10/2024 7.44 2.20 - 8.85 K/cmm Final Absolute Lymphocytes 04/10/2024 3.19 1.09 - 3.30 K/cmm Final Absolute Monocytes 04/10/2024 1.04 (H) 0.10 - 0.80 K/cmm Final Absolute Eosinophils 04/10/2024 0.41 0.03 - 0.61 K/cmm Final ABS Basophils 04/10/2024 0.07 0.01 - 0.11 K/cmm Final Absolute Immature Grans 04/10/2024 0.05 0.00 - 0.06 K/cmm Final Type of Differential: 04/10/2024 Auto Final Sodium 04/10/2024 140 136 - 145 mmol/L Final Potassium 04/10/2024 4.2 3.5 - 5.0 mmol/L Final Chloride 04/10/2024 105 96 - 110 mmol/L Final CO2 Total 04/10/2024 25 22 - 32 mmol/L Final Glucose 04/10/2024 85 70 - 99 mg/dl Final BUN 04/10/2024 14 10 - 26 mg/dL Final Creatinine 04/10/2024 0.71 0.66 - 1.25 mg/dL Final eGFR 04/10/2024 108 >60 mL/min/1.73m2 Final Total Protein 04/10/2024 7.0 6.3 - 8.2 g/dL Final Albumin 04/10/2024 4.2 3.4 - 4.9 g/dL Final Alkaline Phosphatase 04/10/2024 77 38 - 126 U/L Final AST 04/10/2024 27 15 - 46 U/L Final ALT 04/10/2024 26 <50 U/L Final Bilirubin, Total 04/10/2024 <0.5 <1.4 mg/dL Final Calcium 04/10/2024 9.7 8.5 - 10.5 mg/dL Final Albumin/Globulin Ratio 04/10/2024 1.5 1.0 - 2.5 Final Anion Gap 04/10/2024 10 5 - 14 mmol/L Final C-Reactive Protein 04/10/2024 <5.0 <10.0 mg/L Final Assessment and Plan: 1. 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) ([facility]) 08/31/2022 8:09 01/01/2023 8:33 11/26/2023 8:05 04/10/2024 11:02 RAPID3 SCORES AND INTERPRETATION Functional Status 0 0.3 0 0 Pain Tolerance 1.5 2 0 - No Pain 1 Global Estimate 0.5 1.5 0 - Very Well 1 RAPID3 2 3.8 0 2 Interpretation Near Remission Low Near Remission Near Remission Doing well on current therapy. Reduction in flare ups since quitting a very physically demanding job. Continue methotrexate 15 mg/week. Continue folic acid 1 mg daily. Continue hydroxychloroquine 200 mg daily. Up-to-date on eye exam for hydroxychloroquine monitoring. 2. Macrocytosis without anemia Stable, likely from methotrexate. 3. Other chest pain Concern for cardiac chest pain -- risk factors of tobacco use, occasional hypertension, and rheumatoid arthritis. I asked Ponce to call his PCP today -- likely will need a stress test CINDY. 4. Long-term use of immunosuppressant medication No sign of adverse effects of DMARD therapy. Check labs prior to next visit. Follow up in 5 months. Dhara Cheng MD 04/10/2024 11:19 documented in this encounter Plan of Treatment Upcoming Encounters Date Type Department Care Team (Late st Contact Info) Description 09/11/2024 8:00 EST Office Visit [facility] Rheumatology [address] [place] [address] Dhara Cheng MD [address] [facility] [address] [place] [address] documented as of this encounter Visit Diagnoses Diagnosis 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) (HCC)- Primary Macrocytosis without anemia Other specified diseases of blood and blood-forming organs Other chest pain Long-term use of immunosuppressant medication Encounter for long-term (current) use of other medications documented in this encounter Care Teams Excel Expert Relationship Specialty Start Date End Date Chiquita Brooks NP PCP - General 09/29/14 documented as of this encounter
--- OUTSIDE RECORDS SUMMARY | 2024-04-21 21:00 | XMS_ITS | Encounter Summary ---
Author Organization [facility] Address [address] [place] [address] Care Team Providers Care Scissors Grinder Name Role Phone Rafimattnery Chiquita Leon NP Primary Care Provider [phone] Reason for Visit * Reason Comments Medications Refill Encounter Details Date Type Department Care Team (Late st Contact Info) Description 02/08/2024 Refill [facility] Rheumatology [address] [place] [phone] Dhara Cheng MD [address] [facility] [address] [place] [address] Medications Refill Social History Tobacco Use Types Packs/Day Years [...] No 08/23/2020 documented as of this encounter Ordered Prescriptions Prescription Sig Dispensed Refills Start Date End Da te folic acid (FOLVITE) 1 mg tablet TAKE ONE TABLET BY MOUTH EVERY DAY 90 Tablet 3 02/08/2024 documented in this encounter Plan of Treatment Upcoming Encounters Date Type Department Care Team (Late st Contact Info) Description 09/11/2024 8:00 EST Office Visit [facility] Rheumatology [address] [place], [place] [phone] Dhara Cheng MD [address] [facility] [place] [address] documented as of this encounter Visit Diagnoses Not on filedocumented in this encounter Discontinued Medications Medication Sig Discontinue Reason Start Date End Da te folic acid (FOLVITE) 1 mg tablet 1 tab(s) orally once a day 10/10/2022 02/08/2024 documented as of this encounter Care Teams Scissors Grinder Relationship Specialty Start Date End Date Chiquita Brooks NP PCP - General 09/29/14 documented as of this encounter
--- OUTSIDE RECORDS SUMMARY | 2024-04-21 21:00 | XMS_ITS | Encounter Summary ---
Author [facility] [place] [address] Care Team Providers Care Production Cloth Cutter Name Role Phone None Primary Care Provider Unavailabl e Encounter Details Date Type Department Care Team (Late st Contact Info) Description 05/15/2019 Refill Dermatology at [address] [phone] Liudmila Stone, AV Social History Tobacco Use Types Packs/Day Years [...] 8:00 AM EST Office Visit Dermatology at [address] [phone] Douglas Carreon MD [address] [place] [address], [place] [address] documented as of this encounter Visit Diagnoses Not on filedocumented in this encounter Care Teams Production Cloth Cutter Relationship Specialty Start Date End Date None None PCP - General 05/15/19 05/16/20 documented as of this encounter
--- OUTSIDE RECORDS SUMMARY | 2024-04-21 21:00 | XMS_ITS | Encounter Summary ---
Author Organization [facility] [place] [address] Care Team Providers Care Printed Circuit Boards Router Name Role Phone Maurisio Beckett MD Primary Care Provider [phone] Reason for Visit * Reason Comments Suture / Staple Removal Encounter Details Date Type Department Care Team (Late Contact Info) Description 10/26/2011 5:15 PM EDT Office Visit Dermatology [address] [place] [address] [address] [place], [place] [phone] Douglas Carreon MD [address] [facility], [place] [address] Allergic dermatitis (Primary Dx) Social History Tobacco Use Types [...] Encounters Date Type Department Care Team (Late Contact Info) Description 07/04/2024 8:00 AM EST Office Visit Dermatology at [address] [phone] Douglas Carreon MD [address] [facility], [place] [address] documented as of this encounter Visit Diagnoses Diagnosis Allergic dermatitis- Primary Contact dermatitis and other eczema, due to unspecified cause documented in this encounter Care Teams Printed Circuit Boards Router Relationship Specialty Start Date End Date Maurisio Beckett MD [address] [address] PCP - General 10/16/11 10/19/14 documented as of this encounter
--- OUTSIDE RECORDS SUMMARY | 2024-04-21 21:00 | XMS_ITS | Encounter Summary ---
Author Organization [facility] Address [address] [place] [address] Care Team Providers Care Duct Layer Name Role Phone Chiquita Brooks NP Primary Care Provider [phone] Reason for Visit * Reason Onset Date Comments Medications Refill 02/08/2024 Encounter Details Date Type Department Care Team (Late st Contact Info) Description 02/08/2024 Telephone [facility] [place] [address] [place] [address] Dhara Cheng MD [address] [facility] [address] [place] [address] Medications Refill Social History Tobacco [...] Dispensed Refills Start Date End Da te hydroxychloroquine (PLAQUENIL) 200 mg tablet TAKE ONE TABLET BY MOUTH EVERY DAY 90 Tablet 3 02/08/2024 methotrexate 2.5 mg tablet TAKE 6 TABLETS BY MOUTH ONCE WEEKLY 72 Tablet 02/08/2024 documented in this encounter Miscellaneous Notes * Telephone Encounter - Latasha García - 02/08/2024 2408 EDT Patient called in requesting refills on Hydroxychloroquine and Methotrexate. Would like them sent to [facility] in [facility]. documented in this encounter Plan of Treatment Upcoming Encounters Date Type Department Care Team (Late st Contact Info) Description 09/11/2024 8:00 EST Office Visit [facility] Rheumatology [address] [place] [address] Dhara Cheng MD [address] [facility] [address] [place] [phone] documented as of this encounter Visit Diagnoses Not on filedocumented in this encounter Discontinued Medications Medication Sig Discontinue Reason Start Date End Da te hydrOXYchloroQUINE (PLAQUENIL) 200 mg tablet TAKE ONE TABLET BY MOUTH EVERY DAY Reorder 10/10/2022 02/08/2024 methotrexate 2.5 mg tablet TAKE 6 TABLETS BY MOUTH ONCE WEEKLY Reorder 09/20/2023 02/08/2024 documented as of this encounter Care Teams Duct Layer Relationship Specialty Start Date End Date Chiquita Brooks NP PCP - General 09/29/14 documented as of this encounter
--- OUTSIDE RECORDS SUMMARY | 2024-04-21 21:00 | XMS_ITS | Encounter Summary ---
[place] [address] Care Team Providers Care Financial Examiner Name Role Phone Darren Garcia DO Primary Care Provider Encounter Details Date Type Department Care Team (Late st Contact Info) Description 05/17/2020 Refill Dermatology at [address] [phone] Liudmila Stone, TECHNICIAN'S HELPER Social History Tobacco Use Types Packs/Day Years [...] 8:00 AM EST Office Visit Dermatology at [address] [phone] Douglas Carreon MD [address] [place] [address], [place] [address] documented as of this encounter Visit Diagnoses Not on filedocumented in this encounter Care Teams Financial Examiner Relationship Specialty Start Date End Date Darren Garcia DO [address] [facility] [address] [place] [address] PCP - General Family Medicine 05/17/20 documented as of this encounter
--- OUTSIDE RECORDS SUMMARY | 2024-04-21 21:00 | XMS_ITS | Encounter Summary ---
[place] [address] Care Team Providers Care Retail Greeter Name Role Phone JoseDarren Primary Care Provider Reason for Visit * Reason Comments Annual Exam Encounter Details Date Type Department Care Team (Late st Contact Info) Description 06/28/2023 8:15 AM EST Office Visit Dermatology at [address] [phone] Douglas Carreon MD [address] [facility], [place] [address] Lymphomatoid papulosis; HSV (herpes simplex virus) anogenital infection; AK (actinic keratosis); Rheumatoid arthritis, involving unspecified site, unspecified whether rheumatoid factor present Social History Tobacco Use Types Packs/Day Years [...] Progress Notes * Douglas Carreon MD - 06/28/2023 8:15 AM EST Problem: 1. Yearly skin checkup 2. History of biopsy September 2011 consistent with lymphomatoid papulosis now improved on methotrexatefor rheumatoid arthritis 3. 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 History of mother of complications of severe lupus 5. Rheumatoid arthritis being followed by Dr. Dhara Cheng and controlled with methotrexate 6. History of subtle atypical intraepidermal melanocytic proliferation right nasal ala, 06/2022, monitoring Ponce follows up for his yearly skin checkup. He has been doing well. He continues to be seen by Dr. Cheng for his rheumatoid arthritis which is well controlled with his methotrexate and Plaquenil. Heis rheumatoid arthritis in his hands has become only worse, which might be due to the fact he is only taking 1 a day of the Plaquenil not twice a day. He was recently started taking twice a day again. He prefers not to be on strong medications.. He continues to work for the [employer]. He again states this year that if he stops methotrexate for any reason, his LP starts to act up again. The valacyclovir is working very well and he wants to continue to take it. He is no longer using the hydroquinone 4% cream. Physical examination reveals a pleasant 53-year-old gentleman who has a pigmented macule covering much of his right nasal ala. It has been there for 5 years but has been getting a little bit bigger and perhaps a little bit thicker over time. He has no active lymphomatoid papulosis today. He has a benign examination of the head and the neck the chest the back the hands on forearms thighs and calves. He continues to have some lentigos on his left denominational. He continues to have the atypical intraepidermal melanocytic proliferation of the right nasal ala a centimeter in diameter. He has an actinic keratosis on the right helical rim. Assessment plan: Lymphomatoid papulosis 1. Continues to respond well to his methotrexate and hydroxychloroquine/Plaquenil, prescriber Dr. Cheng. 2. Patient now taking twice daily dosing of hydroxychloroquine 3. Patient knows to avoid alcohol while on methotrexate. He is getting regular lab testing per Dr. Cheng. 4. Continue current therapy return to clinic in 1 year for repeat check. HSV 1. Continue valacyclovir 500 mg take 1 p.o. daily dispense 90 for a 3-month supply with 3 refills. This will be called into his [facility] in [place]. Solar lentigos, facial 1. Patient reassured about solar lentigos on his left denominational Subtle atypical intraepidermal melanocytic proliferation, right nasal ala 1. Continue to monitor 2. Rebiopsy if there are any changes Rheumatoid arthritis 1. Continues to be followed by Dr. Cheng. 2. Now taking prescribed twice daily dosing of Plaquenil Actinic keratosis right helical rim 1. LN 2 x 2 applied to single site 2. Patient tolerated moderately well. CC: Linda Fernández documented in this encounter Plan of Treatment Upcoming Encounters Date Type Department Care Team (Late st Contact Info) Description 07/04/2024 8:00 AM EST Office Visit Dermatology at [place] [address] [place] [address] Douglas Carreon MD [address] [facility] [address], [place] [address] documented as of this encounter Visit Diagnoses Diagnosis Lymphomatoid papulosis Other specified disorder of skin HSV (herpes simplex virus) anogenital infection Herpes simplex without mention of complication AK (actinic keratosis) Actinic keratosis Rheumatoid arthritis, involving unspecified site, unspecified whether rheumatoid factor present documented in this encounter Care Teams Retail Greeter Relationship Specialty Start Date End Date Darren Garcia DO [address] [place] [address] PCP - General Family Medicine 05/17/20 documented as of this encounter
--- OUTSIDE RECORDS SUMMARY | 2024-04-21 21:00 | XMS_ITS | Encounter Summary ---
[place] [address] Care Team Providers Care Medical Receptionist Medical Assistant Name Role Phone Jose Darren BRAXTON Primary Care Provider [phone] Reason for Visit * Reason Comments Annual Exam Encounter Details Date Type Department Care Team (Late st Contact Info) Description 05/17/2021 8:15 AM EDT Office Visit Dermatology at [address] [phone] Douglas Carreon MD [address] [facility], [place] [address] Lymphomatoid papulosis; HSV (herpes simplex virus) anogenital [...] Progress Notes * Douglas Carreon MD - 05/17/2021 8:15 AM EDT Problem: 1.?Yearly skin checkup 2. 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 ??History of mother of complications of severe lupus 5. ??Rheumatoid arthritis being followed by Dr. Dhara Cheng??and controlled with methotrexate ?? Ponce follows up for a 1 year check and has been doing well. His lymphomatoid papulosis remains quiescent as long as he remains on methotrexate, which he is taking for his rheumatoid arthritis. He feels that if he stops the methotrexate for any reason, the LP starts to come back again. He is seen on every 3 to 4- month basis by Dr. Dhara Cheng. He continues to work for the [employer]. The methotrexate is tolerated well. The valacyclovir is working well for him he is only had 1 outbreakin the genital region this year. If he has an outbreak he doubles up on the dose and that stops it. ?? Physical examination reveals a pleasant 51-year-old man who is moderately bothered by solar lentigos developing on his face on the right nasal ala left anabaptism. He does not want any under other intervention besides the hydroquinone cream for this. He has no active areas of lymphomatoid papulosis on the legs or back today. Has no active HSV. ?? Assessment plan Lymphomatoid papulosis 1. Currently continues to respond well to his methotrexate. This is prescribed by Dr. Cheng. This isallowing him to continue to work in his very physically taxing job. 2. Return to clinic in a year for repeat check ?? HSV 1. Continue valacyclovir 500 mg 1 p.o. daily specimen 90 for a 3-month supply with 3 refills. Will call into his [facility] pharmacy in [place]. 2. This continues to work well for him. ?? Solar lentigo's, facial 1. Patient would like to continue his hydroquinone 4% cream. Apply twice daily to affected facial areas dispense 15 g with 3 refills. He knows this may not be covered by insurance. 2. Continue sun avoidance precautions sunscreen SPF 70 with Helioplex and hat when possible to protect himself from the sun. ??Rheumatoid arthritis 1. Continues to be followed by Dr. Cheng. ?? CC: Darren Garcia DO documented in this encounter Plan of Treatment Upcoming Encounters Date Type Department Care Team (Late st Contact Info) Description 07/04/2024 8:00 AM EST Office Visit Dermatology at [address] [place] [address] Douglas Carreon MD [address] [facility] [address], [place] [address] documented as of this encounter Visit Diagnoses Diagnosis Lymphomatoid papulosis Other specified disorder of skin HSV (herpes simplex virus) anogenital infection Herpes simplex without mention of complication documented in this encounter Care Teams Medical Receptionist Medical Assistant Relationship Specialty Start Date End Date Darren Garcia DO [address] [place] [address] [address] [facility] 1 [place] [address] PCP - General Family Medicine 05/17/20 documented as of this encounter
--- OUTSIDE RECORDS SUMMARY | 2024-04-21 21:00 | XMS_ITS | Encounter Summary ---
[place] [address] Care Team Providers Care Skiing Instructor Name Role Phone Maurisio Beckett MD Primary Care Provider [phone] Reason for Visit * Reason Comments Suture / Staple Removal Encounter Details Date Type Department Care Team (Late st Contact Info) Description 12/20/2011 5:15 PM EDT Office Visit Dermatology [address] [place] [address] [address] [place] [address] Douglas Carreon MD [address] [place] [address] [address], [place] [address] Visit for suture removal (Primary Dx) Social History Tobacco Use Types [...] Progress Notes * Douglas Carreon MD - 12/20/2011 4:07 PM EDT Problem: Follow up for suture removal and biopsy results. Ponce follows up, and the biopsy from his right lower back came back showing a follicular cyst. Physical examination reveals excellent healing of this. Assessment and Plan: Follicular cyst, right lower back. a. Sutures removed. b. May discontinue wound care instructions. c. The patient congratulated on good wound care and good healing. d. Return to clinic next September for a yearly skin checkup and medication refills. documented in this encounter Plan of Treatment Upcoming Encounters Date Type Department Care Team (Late st Contact Info) Description 07/04/2024 8:00 AM EST Office Visit Dermatology at [place] [address] [facility] [address] [place] [phone] Douglas Carreon MD [address] [facility] [address], [place] [address] documented as of this encounter Visit Diagnoses Diagnosis Visit for suture removal- Primary Encounter for removal of sutures documented in this encounter Care Teams Skiing Instructor Relationship Specialty Start Date End Date Maurisio Beckett MD [address] [facility] 1 [place] [address] PCP - General 10/16/11 10/19/14 documented as of this encounter
--- OUTSIDE RECORDS SUMMARY | 2024-04-21 21:00 | XMS_ITS | Clinical Summary ---
[place] [address] Care Team Providers Care Fresh Foods Technician Name Role Phone JoseDarren lewis Primary Care Provider Allergies No known active allergies Medications Medication Sig Dispensed Refills Start Date End Date Status folic acid (FOLVITE) 1 mg Tablet TAKE ONE TABLET BY MOUTH DAILY 3 04/22/2019 Active metHOTREXate 2.5 mg Tablet TAKE 6 TABLETS BY MOUTH ONCE A WEEK 1 04/15/2019 Active hydroquinone 4 % Cream Apply twice daily to affected facial areas 15 g 3 05/17/2020 Active hydroxychloroquine (Plaquenil) 200 mg tablet Take 1 tablet by mouth daily. 10/10/2022 Active valACYclovir (Valtrex) 500 mg tablet Take 1 tablet by mouth daily. 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 Herpes simplex 04/24/2013 Allergic dermatitis 10/26/2011 Dermatitis 10/16/2011 Follicular cyst 10/16/2011 HSV (herpes simplex virus) anogenital infection 02/13/2011 Social History Tobacco Use Types Packs/Day Years Used Date Smoking Tobacco: Every Day Smokeless Tobacco: Never Alcohol Use Standard Drinks/Week Comments Not Asked 0 (1 standard drink = 0.6 oz pur e alcohol) Sex and Gender Information Value Date Recorded Sex Assigned at Not on file Gender Identity Not on file Sexual Orientation Not on file Plan of Treatment Upcoming Encounters Date Type Department Care Team (Late st Contact Info) Description 07/04/2024 8:00 AM EST Office Visit Dermatology at [place] [address] [place] [address] Douglas Carreon MD [address] [facility] [address], [place] [address] Health Maintenance Due Date Last Done Comments CT Colonography 1969 Colonoscopy 1969 Colorectal Cancer Screening 1969 FIT DNA 1969 FIT 1969 Sigmoidoscopy (10 year) with FIT yearly 1969 Sigmoidoscopy 1969 Pneumococcal Vaccine: At-Risk 5-64yrs (1 of 2 - PCV) 0 1975 HIV screen 1987 Hepatitis C Screening 1987 Lipid Screening 1987 Hepatitis B vaccine (0-59 yrs) (1) 01/17/1988 Tetanus/Diphtheria/Pertussis Vaccines (1 - Tdap) 01/16 Zoster vaccine (1 of 2) 2019 Advance Directive 01/17/2024 Covid-19 Vaccine (1 - 2022-24 season) 2024 Influenza (Flu) vaccine (1 o f 1 - Influenza standard series) 03/23/2024 Care Teams Fresh Foods Technician Relationship Specialty Start Date End Date Darren Garcia DO [address] [place] [address] [place] [address] PCP - General Family Medicine 05/17/20
--- OUTSIDE RECORDS SUMMARY | 2024-04-21 21:00 | XMS_ITS | Encounter Summary ---
[place] [address] Care Team Providers Care Integrated Marketing Specialist Name Role Phone Jose Darren BRAXTON Primary Care Provider [phone] Reason for Visit * Reason Comments Annual Exam Encounter Details Date Type Department Care Team (Late st Contact Info) Description 06/26/2022 10:00 AM EST Office Visit Dermatology at [address] [phone] Douglas Carreon MD [address] [facility], [place] [address] Lymphomatoid papulosis; HSV (herpes simplex virus) anogenital [...] Progress Notes * Douglas Carreon MD - 06/26/2022 10:00 AM EST Problem: 1.?Yearly skin checkup 2. 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 ??History of mother of complications of severe lupus 5. ??Rheumatoid arthritis being followed by Dr. Dhara Cheng??and controlled with methotrexate Ponce follows up for his yearly skin checkup. He has been doing well. He continues to be seen by Dr. Cheng for his rheumatoid arthritis which is well controlled with his methotrexate. He continues to work for the [employer]. He again states this year that if he stops methotrexate for any reason, his LP starts to act up again. The valacyclovir is working very well and he wants to continueto take it. He is no longer using the hydroquinone 4% cream. Physical examination reveals a pleasant 52-year-old gentleman who has a pigmented macule covering much of his right nasal ala. It has been there for 5 years but has been getting a little bit bigger and perhaps a little bit thicker over time. He has no active lymphomatoid papulosis today. He has benign examination of the head and the neck the chest the back the hands on forearms thighs and calves.He continues to have some lentigos on his left mandaen. Assessment plan: Lymphomatoid papulosis 1. Continues to respond well to his methotrexate, prescriber Dr. Cheng. 2. Continue current therapy return to clinic in 1 year for repeat check. HSV 1. Continue valacyclovir 500 mg take 1 p.o. daily dispense 90 for a 3-month supply with 3 refills. He will be called into his [facility] pharmacy in [place]. Solar lentigos, facial 1. Patient reassured about solar lentigos on his left mandaen Atypical pigmented lesion right nasal ala 1. Differential would include seborrheic keratosis, solar lentigo, versus possible lentigo maligna melanoma. 2. After obtaining informed patient consent, the site was anesthetized and shave biopsy obtained from anterior section of this pigmented patch 3. Submitted for pathologic analysis wound care instructions and supplies given. 4. We will notify the patient of his biopsy results in 1 week. Rheumatoid arthritis 1. Continues to be followed by Dr. Cheng. CC: Darren Garcia DO documented in this encounter Plan of Treatment Upcoming Encounters Date Type Department Care Team (Late st Contact Info) Description 07/04/2024 8:00 AM EST Office Visit Dermatology at [place] [address] [facility] [place] [address] Douglas Carreon MD [address] [facility] [address], [place] [address] documented as of this encounter Visit Diagnoses Diagnosis Lymphomatoid papulosis Other specified disorder of skin HSV (herpes simplex virus) anogenital infection Herpes simplex without mention of complication documented in this encounter Care Teams Integrated Marketing Specialist Relationship Specialty Start Date End Date Darren Garcia DO [address] [place] [address] [place] [address] PCP - General Family Medicine 05/17/20 documented as of this encounter
--- OUTSIDE RECORDS SUMMARY | 2024-04-21 21:00 | XMS_ITS | Encounter Summary ---
[place] [address] Care Team Providers Care Candy Department Manager Name Role Phone Tio Metcalf MD Primary Care Provider [phone] Reason for Visit * Reason Comments Herpes Simplex Virus Encounter Details Date Type Department Care Team (Late st Contact Info) Description 02/13/2011 5:00 PM EDT Office Visit Dermatology [address] [place] [address] [address] [place], [place] [phone] Douglas Carreon MD [address] [facility] [address], [place] [address] HSV (herpes simplex virus) anogenital infection (Primary Dx) Social History Tobacco Use Types [...] Progress Notes * Douglas Carreon MD - 02/13/2011 5:36 PM EDT Problem: Followup HSV, genital. Ponce follows up after last being seen in September 2008. He has been taking valacyclovir 500 mg one p.o. b.i.d. at the very onset of flares and discontinues it once he is past the flare. He has opted not to take it on a regular daily basis. He is having one outbreak a month, and I wonder whether he might do well to take it on a suppressive basis. I reminded him that prior to valacyclovir, until 1998, he was taking acyclovir. Physical examination today reveals no active HSV. The normal side of his outbreak is on the inferior shaft of the penis. Assessment and Plan: 1. HSV type 2, genital. 1a. Continue valacyclovir 500 mg one p.o. b.i.d.; #180 dispensed with three refills for a one-year supply. 1b. I would be happy to give him another refill next year for another year's supply, but every two years I would like to see him back for refills. 2. The patient points out to me two warts on his hands, which are small, unobtrusive, and asymptomatic. 2a. He opts not to treat them, and I think that is fine. 2b. Return to the clinic in two years. documented in this encounter Plan of Treatment Upcoming Encounters Date Type Department Care Team (Late st Contact Info) Description 07/04/2024 8:00 AM EST Office Visit Dermatology at [place] [address] [place] [phone] [address] MD [address] [facility], [place] [address] documented as of this encounter Visit Diagnoses Diagnosis HSV (herpes simplex virus) anogenital infection- Primary Herpes simplex without mention of complication documented in this encounter Care Teams Candy Department Manager Relationship Specialty Start Date End Date Tio Metcalf MD [address] [place] [address] PCP - General 06/14/10 10/15/11 documented as of this encounter
--- OUTSIDE RECORDS SUMMARY | 2024-04-21 21:00 | XMS_ITS | Encounter Summary ---
Author Organization [facility] Address [address] [place] [address] Care Team Providers Care Outdoor Adventure Instructor Name Role Phone RafiChiquita stringer NP Primary Care Provider [phone] Reason for Visit * Reason Onset Date Comments Follow-up 04/10/2024 Encounter Details Date Type Department Care Team (Late st Contact Info) Description 04/10/2024 Telephone [facility] [address] [place], [place] [phone] Lita Whittington RN Follow-up Social History Tobacco Use Types Packs/Day Years [...] Telephone Encounter - Lita Whittington RN - 04/10/2024 1532 EDT Spoke with PCP office. The patient has not been seen there since 2018. He will need to call and getregistered again. They can try to fit him in for a follow up and then he will need to re-establish care. I called patient twice a needed to leave a voicemail asking him to call the PCP office immediatly to get in and have his chest pain evaluated. * Telephone Encounter - Lita Whittington RN - 04/10/2024 1523 EDT ----- Message from Dhara Cheng MD sent at 04/10/2024 11:40 EDT ----- Hi-- Could you call Ponce's PCP and give a heads up to see my note today? Ponce has been having chest pain intermittently that seems cardiac to me, and should have a stress test CINDY. Thanks. documented in this encounter Plan of Treatment Upcoming Encounters Date Type Department Care Team (Late st Contact Info) Description 09/11/2024 8:[address] [facility] Rheumatology [address] [place] [address] Dhara Cheng MD [address] [facility] [address] [place] [phone] documented as of this encounter Visit Diagnoses Not on filedocumented in this encounter Care Teams Outdoor Adventure Instructor Relationship Specialty Start Date End Date Chiquita Brooks NP PCP - General 09/29/14 documented as of this encounter
--- OUTSIDE RECORDS SUMMARY | 2024-04-21 21:00 | XMS_ITS | Encounter Summary ---
Author Organization [facility] [place] [address] Care Team Providers Care Human Resources Operations Director Name Role Phone None Primary Care Provider Unavailabl e Reason for Visit * Reason Comments Skin Check Encounter Details Date Type Department Care Team (Late st Contact Info) Description 05/15/2019 8:30 AM EDT Office Visit Dermatology at [address] [phone] Douglas Carreon MD [address] [facility], [place] [address] Lymphomatoid papulosis; HSV (herpes simplex virus) anogenital [...] Progress Notes * Douglas Carreon MD - 05/15/2019 8:30 AM EDT Problem: 1. Yearly skin checkup 2. History of biopsy consistent with lymphomatoid papulosis back now improved on methotrexate for rheumatoid arthritis 3. 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 History of mother of complications of severe lupus 5. Rheumatoid arthritis being followed by Dr. Dhara Cheng and controlled with methotrexate Ponce follows up for a one-year check. He is doing well. His lymphomatoid papulosis is quiescent aslong as he remains on methotrexate, which is also working well for his rheumatoid arthritis. He continues to work for the [employer]. Dr. Arin Cheng continues to prescribe his methotrexate for him and monitor him with labs on a roughly quarterly basis he states. The Valacyclovir works well. He has had one outbreak in the genital region this year only this summer. He did contract Lyme disease this summer, diagnosed by Dr. Garcia, and treated with 1 month of doxycycline successfully. The diagnosis was based on the cutaneous findings on the right upper shoulder and elsewhere on his torso. He has had no recurrence. Physical examination reveals a pleasant 49-year-old gentleman who is only moderately tanned on the face arms and upper chest. He continues to have 2 solar lentigos, one on the right nasal ala and onein the left mid cheek present now for the last 3 years. They are unchanged. The prior areas of involvement of lymphomatoid papulosis on the legs and back remain clear. He has no active HSV. Assessment and plan: Lymphomatoid papulosis 1. Currently responding well to methotrexate which the patient finds also quite helpful for her rheumatoid arthritis. Allows him to continue to work in his very physically taxing job. 2. Continue to monitor on a yearly basis HSV 1. Continue valacyclovir 500 mg taking 1 p.o. daily. Dispense #90 for 3-month supply with 3 refillsto his kidneys in [place] Solar lentigos, facial 1. Continue sunscreen with [place] [employer] and continue wearing of widebrimmed hat when out of doors. 2. Patient sure about his benign skin examination today Rheumatoid arthritis 1. Being followed by Dr. Cheng CC: MD Darren Gabriel DO documented in this encounter Plan of Treatment Upcoming Encounters Date Type Department Care Team (Late st Contact Info) Description 07/04/2024 8:00 AM EST Office Visit Dermatology at [place] [address] [facility] [place] [address] Douglas Carreon MD [address] [facility] [address], [place] [address] documented as of this encounter Visit Diagnoses Diagnosis Lymphomatoid papulosis Other specified disorder of skin HSV (herpes simplex virus) anogenital infection Herpes simplex without mention of complication documented in this encounter Care Teams Human Resources Operations Director Relationship Specialty Start Date End Date None None PCP - General 05/15/19 05/16/20 documented as of this encounter
--- OUTSIDE RECORDS SUMMARY | 2024-04-21 21:00 | XMS_ITS | Encounter Summary ---
Author Organization [facility] Address [address] [place] [address] Care Team Providers Care Learning Disabilities Specialist Name Role Phone Todd Chiquita Leon NP Primary Care Provider [phone] Encounter Details Date Type Department Care Team (Late st Contact Info) Description 04/10/2024 10:10 EDT Phlebotomy Only [facility] - Outpatient Phlebotomy Drawing [address] [place] [address] Lab, [facility] 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); High risk medication use Social History Tobacco Use Types Packs/Day Years [...] No 08/23/2020 documented as of this encounter Plan of Treatment Upcoming Encounters Date Type Department Care Team (Late st Contact Info) Description 09/11/2024 8:00 EST Office Visit [facility] Rheumatology [address] [place] [address] Dhara Cheng MD [address] [facility] [place] [phone] documented as of this encounter Procedures Procedure Name Priority Date/Time Associated Diagnosis Comments COMPLETE BLOOD COUNT AND DIFFERENTIAL Routine 04/10/2024 10:18 EDT 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) High risk medication use C REACTIVE PROTEIN Routine 04/10/2024 10 :18 EDT 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) High risk medication use COMPREHENSIVE METABOLIC PANEL (CMP) Routine 04/10/2024 10:18 EDT 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) High risk medication use documented in this encounter Results * C REACTIVE PROTEIN (04/10/2024 10:18 EDT) C-Reactive Protein <5.0 <10.0 mg/L 04/10/2024 11:03 EDT [facility] Blood VENOUS BLOOD / Unknown Venipuncture / Unknown 04/10/2024 10:18 EDT 04/10/2024 10:22 EDT Dhara Cheng MD CHEMISTRY & BLOOD GA S ORDERABLES [facility] [address] [place] [address] * COMPREHENSIVE METABOLIC PANEL (CMP) (04/10/2024 10:18 EDT) Sodium 140 136 - 145 mmol/L 04/10/2024 11:03 EDT [facility] Potassium 4.2 3.5 - 5.0 mmol/L 04/10/2024 11:03 EDT [facility] Chloride 105 96 - 110 mmol/L 04/10/2024 11:03 EDT [facility] CO2 Total 25 22 - 32 mmol/L [facility]24 [facility] Glucose 85 70 - 99 mg/dl 04/10/2024 11:03 [facility] BUN 14 10 - 26 mg/dL 04/10/2024 11:03 [facility] Creatinine 0.71 0.66 - 1.25 mg/dL 04/10/2024 11:03 [facility] eGFR 108 >60 mL/min/1.7 3m2 04/10/2024 11:03 [facility] Total Protein 7.0 6.3 - 8.2 g/dL 04/10/2024 11:03 [facility] Albumin 4.2 3.4 - 4.9 g/dL 04/10/2024 11:03 [facility] Alkaline Phosphatase 77 38 - 126 U/L 04/10/2024 11:03 [facility] AST 27 15 - 46 U/L 04/10/2024 11:03 [facility] ALT 26 <50 U/L 04/10/2024 11:03 [facility] Bilirubin, Total <0.5 <1.4 mg/dL 04/10/20 11:03 [facility] Calcium 9.7 8.5 - 10.5 mg/dL 04/10/2024 11:03 [facility] Albumin/Globulin Ratio 1.5 1.0 - 2.5 04/10/2024 11:03 [facility] Anion Gap 10 5 - 14 mmol/L 04/10/2024 11:03 [facility] Blood VENOUS BLOOD / Unknown Venipuncture / Unknown 04/10/2024 10:18 EDT 04/10/2024 10:22 EDT Dhara Cheng MD CHEMISTRY & BLOOD GA S ORDERABLES [facility] [address] [place] [address] * (ABNORMAL) COMPLETE BLOOD COUNT AND DIFFERENTIAL (04/10/2024 10:18 [facility]) WBC 12.20(H) 4.00 - 10.40 K/cmm 04/10/2024 10:49 [facility] RBC 4.45 4.36 - 5.78 M/cmm 04/10/2024 10:49 [facility] Hemoglobin 15.0 13.8 - 17.3 g/dL 04/10/2024 10:49 [facility] HCT 44.8 39.5 - 50.2 % 04/10/2024 10:49 [facility] MCV 101(H) 81 - 95 fL 04/10/2024 10:49 [facility] MCH 33.7(H) 27.6 - 33.0 pg 04/10/2024 10:49 [facility] MCHC 33.5 32.8 - 36.4 g/dL 04/10/2024 10:49 [facility] RDW-CV 13.9 <14.2 % 04/10/2024 10:49 [facility] RDW-SD 50.7(H) <46.0 fl 04/10/2024 10:49 [facility] PLT 404(H) 141 - 377 K/cmm 04/10/2024 10:49 [facility] MPV 9.1(L) 9.5 - 12.7 fL 04/10/2024 10:49 [facility] % Neutrophils 61.0 Not Indicated % 04/10/2024 10:49 [facility] % Lymphocytes 26.1 Not Indicated % 04/10/2024 10:49 [facility] % Monocytes 8.5 Not Indicated % 04/10/2024 10:49 [facility] % Eosinophils 3.4 Not Indicated % 04/10/2024 10:49 [facility] % Basophils 0.6 Not Indicated % 04/10/2024 10:49 [facility] % Immature Grans 0.4 <0.9 % 04/10/2024 10:49 [facility] Absolute Neutrophils 7.44 2.20 - 8.85 K/cmm 04/10/2024 10:49 [facility] Absolute Lymphocytes 3.19 1.09 - 3.30 K/cmm 04/10/2024 10:49 [facility] Absolute Monocytes 1.04(H) 0.10 - 0.80 K/cmm 04/10/2024 10:49 [facility] Absolute Eosinophils 0.41 0.03 - 0.61 K/cmm 04/10/2024 10:49 [facility] ABS Basophils 0.07 0.01 - 0.11 K/cmm 04/10/2024 10:49 [facility] Absolute Immature Grans 0.05 0.00 - 0.06 K/cmm 04/10/2024 10:49 [facility] Type of Differential: Auto 04/10/2024 10:49 [facility] Blood VENOUS BLOOD / Unknown Venipuncture / Unknown 04/10/2024 10:18 EDT 04/10/2024 10:46 EDT Dhara Cheng MD PACKAGES & DNA PROBE ORDERABLES [facility] [address] [place] [address] documented in this encounter Visit Diagnoses Diagnosis Seropositive rheumatoid arthritis of multiple joints ([facility]-CMS) High risk medication use Encounter for long-term (current) use of other medications documented in this encounter Care Teams Learning Disabilities Specialist Relationship Specialty Start Date End Date Chiquita Brooks NP PCP - General 09/29/14 documented as of this encounter
--- OUTSIDE RECORDS SUMMARY | 2024-04-21 21:00 | XMS_ITS | Encounter Summary ---
Author Organization [facility] [place] [address] Care Team Providers Care Magazine Hand Name Role Phone Angela Pelaez MD Primary Care Provider Reason for Visit * Reason Comments Skin Check Encounter Details Date Type Department Care Team (Late st Contact Info) Description 10/20/2014 4:45 PM EDT Office Visit Dermatology at [address] [phone] Douglas Carreon MD [address] [facility], [place] [address] Lymphomatoid papulosis Discharge Disposition: Home Social History Tobacco Use [...] Progress Notes * Douglas Carreon MD - 10/20/2014 6:00 PM EDT Problem: 1. Yearly skin checkup. 2. History of punch biopsy consistent with lymphomatoid papulosis, back, with ongoing erythematous papules. 3. History of genital HSV, on Valtrex taking 500 mg once daily. 4. History of mother who of complications of severe lupus. Ponce follows up and is doing well. He did not have any flares of his HSV this last year taking the Valtrex and is pleased with the way that is working. However, he continues to get itchy red bumps that will come and go on his arms, his legs, and his back. I biopsied one of these three years ago, and it came back potentially consistent with lymphomatoid papulosis. In the meantime, the patient has also been seen by Dr. Dhara Cheng and diagnosed with early rheumatoid arthritis. He had an apparent lymphomatoid nodule excised from his right elbow and has high serum RA factor positivity. He has had x-rays done recently and will soon be meeting with her again to discuss joint damage and the appropriate therapy to begin. 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 Most of the areas on the back actually remain healed today. He has no active HSV. Assessment and Plan: 1. Lymphomatoid papulosis. a. Recommend that I continue to see him on a yearly basis. b. Discussed the potential premalignant nature of this with him today. c. The patient asked about treatment options, and should Dr. Cheng consider DMARDs for his RA at some point, methotrexate would likely be of benefit for his lymphomatoid papulosis. 2. HSV. a. Continue currently therapy of valacyclovir, taking 500 one p.o. qd/bid. We will fax in a three-month supply with three refills for him to [facility]. This should last him for a year. Return to clinic reminder one year. COPY: Aureliano Nieto M.D. documented in this encounter Plan of Treatment Upcoming Encounters Date Type Department Care Team (Late st Contact Info) Description 07/04/2024 8:00 AM EST Office Visit Dermatology at [place] [address] [facility] [place] [phone] Douglas Carreon MD [address], [place] [address] documented as of this encounter Visit Diagnoses Diagnosis Lymphomatoid papulosis Other specified disorder of skin documented in this encounter Care Teams Magazine Hand Relationship Specialty Start Date End Date Angela Pelaez MD PCP - General 10/20/14 05/14/19 documented as of this encounter
--- OUTSIDE RECORDS SUMMARY | 2024-04-21 21:01 | XMS_ITS | Encounter Summary ---
Author Organization [facility] Address [address] [place] [address] Care Team Providers Care Cash Management Clerk Name Role Phone RafiChiquita stringer [employer] INST[employer]ER Primary Care Provider [phone] Reason for Visit * Reason Comments Follow-up Pt doing well. Occas ional flare ups in hands,elbows and shoulders. Encounter Details Date Type Department Care Team (Latest Contact Info) Description 01/04/2021 8:30 EDT Office Visit [facility] Rheumatology [address] [place] [address] Dhara Cheng MD [address] [facility] [address] [place] [address] Seropositive rheumatoid arthritis ([facility]-CMS) (Primary Dx); Macrocytosis without anemia; Hyperhidrosis; Long-term use of immunosuppressant medication Social History [...] Sign Reading Time Taken Comments Blood Pressure 124/72 01/04/2021 0830 EDT Pulse - - Temperature 35.6 ??C (96 ??F) 01/04/2021 0830 EDT Respiratory Rate - - Oxygen Saturation - - Inhaled Oxygen Concentration - - Weight 85.7 kg (188 lb 14.4 oz) 01/04/2021 0830 EDT Height - - Body Mass Index 28.72 08/23/2020 1052 EST documented in this encounter Functional Status Functional [...] * Patient Instructions* Dhara Cheng MD - 01/04/2021 8:30 EDT No medication changes Labs prior to next visit documented in this encounter Progress Notes * Dhara Cheng MD - 01/04/2021 0830 EDT [facility] Chief Complaint Patient presents with ??? Follow-up Pt doing well. Occasional flare ups in hands,elbows and shoulders. HPI: Seropositive RA. Ponce has signs and symptoms suggesting rheumatoid arthritis. CCP>250, RF 1510,RACH 160 centromere pattern, mildly low C4 complement, negative dsDNA, negative anti-PHILIP. No significant erosive disease on plain films of hands/feet. With the positive RACH with centromere pattern, itis possible that he may develop an overlap syndrome. Started MTX in 02/2018, added to HCQ, and he is improving significantly. ? INTERVAL HISTORY: Ponce returns for 4 month follow up. No medication changes were made at the last visit. Ponce says he is doing well. Ponce says that he has an occasional brief flareup in his hands, elbows, or shoulders. Says over the last couple weeks he had some triggering of the ring finger of the right hand as well as swelling of the long finger of the right hand on separate occasions. He says these lasted for less than a day. He denies any flareups that have lasted for more than a day or 2. He does not need to take any other medication during these flareups. Current Outpatient Medications Medication ??? folic acid (FOLVITE) 1 mg tablet ??? hydrOXYchloroQUINE (PLAQUENIL) 200 mg tablet ??? methotrexate 2.5 mg tablet ??? valACYclovir (VALTREX) 500 mg tablet No current facility-administered medications for this visit. Allergies include: Patient has no known allergies. Patient Active Problem List Diagnosis ??? Seropositive rheumatoid arthritis (HCC-CMS) ??? Macrocytosis without anemia ??? Lymphomatoid papulosis, type A ??? Long-term use of immunosuppressant medication Family History Problem Relation Age of Onset ??? Rheumatologic Disease Mother Social History: Smoking just over a pack per day. This is unchanged. Ponce says he realizes he needs to work on this. Review of Systems: Denies shortness of breath, chest pain. Lymphomatoid papulosis stable. Notices if he skips a dose of methotrexate, he has a small flare up.Follows with Dr Carreon. Had eye exam late [facility]; no issues. Says weight is stable. Had two doses of Covid vaccine. Ponce is bothered by the hyperhidrosis. He thinks that there might be a psychological component to this. He is contemplating looking into possible treatments. Physical Examination: BP 124/72 Temp (!) 35.6 ??C (96 ??F) Wt 85.7 kg (188 lb 14.4 oz) BMI 28.72 kg/m?? EYES: Conjunctivae not injected. NECK: No lymphadenopathy. LUNGS: Clear to auscultation bilaterally. CARDIOVASCULAR: Regular rate and rhythm. No murmur. No peripheral edema. JOINT EXAM: ??No synovitis of wrists, finger or toe joints; full passive painless flexion of digits. Mild reduction in right shoulder internal and external rotation, chronic. Mild bilateral flexion contractures of elbows, chronic. Reduction in external rotation of right more than left hip, without g roin pain. Knee flexion is full, no discomfort. SKIN: No obvious skin lesions on exam today. Labs: Orders Only on 01/04/2021 Component Date Value Ref Range Status ??? C-Reactive Protein, External 01/03/2021 0.33* 0.0 - 0.3 mg/dL Final ? ? GFR, Calculated, External 01/03/2021 >=60.00 >=60.00 mL/min/1.73m2 Final ??? Glucose, Serum, External 01/03/2021 118* 74 - 106 mg/dL Final ??? Albumin, External 01/03/2021 3.7 3.4 - 5.0 g/dL Final ??? Total Alkaline Phosphatase, Personnel Administrator* 01/03/2021 96 46 - 116 U/L Final ??? ALT, External 01/03/2021 25 16 - 63 U/L Final ??? AST, External 01/03/2021 17 15 - 37 U/L Final ??? BUN, External 01/03/2021 17 7 - 18 mg/dL Final ??? Calcium, External 01/03/2021 9.0 8.5 - 10.1 mg/dL Final ??? Chloride, External 01/03/2021 105 98 - 107 mmol/L Final ??? CO2, External 01/03/2021 25.9 21.0 - 32.0 mmol/L Final ??? Creatinine, External 01/03/2021 0.9 0.70 - 1.30 mg/dL Final ??? Potassium, External 01/03/2021 4.0 3.5 - 5.1 mmol/L Final ??? Sodium, External 01/03/2021 142 136 - 145 mmol/L Final ??? Total Protein, External 01/03/2021 6.9 6.4 - 8.2 g/dL Final ??? Bilirubin, Total, External 01/03/2021 0.4 0.2 - 1.0 mg/dL Final ??? WBC, External 01/03/2021 10.88* 4.4 - 10.8 10 3/uL Final ??? RBC, External 01/03/2021 4.35* 4.36 - 5.78 10 6/uL Final ??? Hemoglobin, External 01/03/2021 15.5 13.5 - 17.5 g/dL Final ??? HCT, External 01/03/2021 44.6 40.0 - 50.0 % Final ??? MCV, External 01/03/2021 102.5* 80 - 95 fL Final ??? MCH, External 01/03/2021 35.6* 27.0 - 33.0 pg Final ??? MCHC, External 01/03/2021 34.8 32.0 - 36.0 % Final ??? PLT, External 01/03/2021 351 130 - 400 10 3/uL Final ??? RDW-CV, External 01/03/2021 13.2 11.8 - 14.1 % Final ??? Neutrophils, External 01/03/2021 65.0 % Final ??? Lymphocytes, External 01/03/2021 21.6 % Final ??? Monocytes, External 01/03/2021 8.9 % Final ??? Eosinophils, External 01/03/2021 3.4 % Final ??? Basophils, External 01/03/2021 0.7 % Final ??? ABS Neutrophils, External 01/03/2021 7.07* 1.2 - 6.7 10 3/uL Final ??? ABS Lymphs, External 01/03/2021 2.35 1.2 - 3.4 10 3/uL Final ??? ABS Monocytes, External 01/03/2021 0.97* 0.1 - 0.8 10 3/uL Final ??? ABS Eosinophils, External 01/03/2021 0.37 0.0 - 0.7 10 3/uL Final ??? ABS Basophils, External 01/03/2021 0.08 0.0 - 0.2 10 3/uL Final Assessment and Plan: 1. Seropositive rheumatoid arthritis (HCC-CMS) Low to no RA disease activity based on joint exam, history and lab results. 2. Macrocytosis without anemia Stable. 3. Hyperhidrosis Discussed checking in with PCP on possible treatments. 4. Long-term use of immunosuppressant medication Check labs prior to next visit. Discussed that response to the Covid vaccine might be reduced due to being on immunosuppressive medication and to be sure to continue to exercise caution, particularly when out in public. Follow up in 4 months. Dhara Cheng MD 01/04/2021 8:48 documented in this encounter Plan of Treatment Upcoming Encounters Date Type Department Care Team (Late st Contact Info) Description 09/11/2024 8:00 EST Office Visit [facility] Rheumatology [address] [place] [address] Dhara Cheng MD [address] [facility] [address] [place] [phone] documented as of this encounter Visit Diagnoses Diagnosis Seropositive rheumatoid arthritis ([facility])- Primary Rheumatoid arthritis Macrocytosis without anemia Other specified diseases of blood and blood-forming organs Hyperhidrosis Primary focal hyperhidrosis Long-term use of immunosuppressant medication Encounter for long-term (current) use of other medications documented in this encounter Historical Medications * This list may reflect changes made after this encounter. Medication Sig Dispensed Refills Start Date End Date Hydroquinone 4 % cream Apply twice daily to affected facial areas 05/17/2020 08/31/2022 added in this encounter Care Teams Cash Management Clerk Relationship Specialty Start Date End Date Chiquita Brooks NP PCP - General 09/29/14 documented as of this encounter
--- OUTSIDE RECORDS SUMMARY | 2024-04-21 21:01 | XMS_ITS | Encounter Summary ---
Author Organization [facility] Address [address] [place] [address] Care Team Providers Care Blood And Plasma Laboratory Assistant Name Role Phone Chiquita Brooks NP Primary Care Provider [phone] Reason for Visit * Reason Onset Date Comments Medications Refill 04/09/2023 Encounter Details Date Type Department Care Team (Late st Contact Info) Description 04/09/2023 Telephone [facility] [place] [address] [place] [address] Dhara Cheng MD [address] [facility] [address] [place] [address] Medications Refill Social History Tobacco [...] encounter Miscellaneous Notes * Telephone Encounter - Eve Catherine RN - 04/09/2023 1411 EDT Left voicemail for patient as there does not appear to be a [facility] in [facility] that is open.Refills for methotrexate sent on 03/29 to [facility] in [facility]. Patient advised of this and encouraged him to callback if any changes needed to be made. * Telephone Encounter - Latasha García - 04/09/2023 1315 EDT Patient would like refill on Methotrexate, to be sent to [facility] in [facility]. documented in this encounter Plan of Treatment Upcoming Encounters Date Type Department Care Team (Late st Contact Info) Description 09/11/2024 8:00 EST Office Visit [facility] Rheumatology [address] [place], [place] [address] Dhara Cheng MD [address] [facility] [place] [phone] documented as of this encounter Visit Diagnoses Not on filedocumented in this encounter Care Teams Blood And Plasma Laboratory Assistant Relationship Specialty Start Date End Date Chiquita Brooks NP PCP - General 09/29/14 documented as of this encounter
--- OUTSIDE RECORDS SUMMARY | 2024-04-21 21:01 | XMS_ITS | Encounter Summary ---
Author Organization [facility] Address [address] [place] [address] Care Team Providers Care Filament Cutter Name Role Phone Rafisiomara Chiquita Leon NP Primary Care Provider [phone] Encounter Details Date Type Department Care Team (Late st Contact Info) Description 08/31/2020 Abstract [facility] Rheumatology [address] [place] [address] Dhara Cheng MD [address] [place] [address] [place] [address] Social History Tobacco Use Types Packs/Day Years [...] Info) Description 09/11/2024 8:00 EST Office Visit [facility] Rheumatology [address] [place] [id number] Dhara Cheng MD [address] [facility] [address] [place] [address] documented as of this encounter Procedures Procedure Name Priority Date/Time Associated Diagnosis Comments COMPLETE BLOOD COUNT AND DIFFERENTIAL Routine 08/23/2020 C REACTIVE PROTEIN Routine 08/23/2020 COMPREHENSIVE METABOLIC PANEL (CMP) Routine 08/23/2020 documented in this encounter Results * (ABNORMAL) COMPLETE BLOOD COUNT AND DIFFERENTIAL (08/23/2020) WBC, External 9.87 4.4 - 10.8 RBC, External 4.51 4.36 - 5.78 Hemoglobin, External 15.7 13.5 - 17.5 HCT, External 46.2 40.0 - 50.0 MCV, External 102.4(A) 80 - 95 MCH, External 34.8(A) 27.0 - 33.0 MCHC, External 34.0 32.0 - 36.0 PLT, External 397 130 - 400 RDW-CV, External 13.0 11.8 - 14.1 Neutrophils, External 57.2 Lymphocytes, External 28.5 Monocytes, External 9.5 Eosinophils, External 3.6 Basophils, External 1.0 ABS Neutrophils, External 5.64 1.2 - 6.7 ABS Lymphs, External 2.81 1.2 - 3.4 ABS Monocytes, External 0.94(A) 0.1 - 0.8 ABS Eosinophils, External 0.36 0.0 - 0.7 ABS Basophils, External 0.10 0.0 - 0.2 Blood VENOUS BLOOD / Unknown 08/23/2020 Historical Provider PACKAGES & DNA AZ OBE ORDERABLES * C REACTIVE PROTEIN (08/23/2020) C-Reactive Protein, External 0.18 0.0 - 0.3 Blood VENOUS BLOOD / Unknown 08/23/2020 Historical Provider CHEMISTRY & BLOOD GAS ORDERABLES * COMPREHENSIVE METABOLIC PANEL (CMP) (08/23/2020) GFR, Calculated, External >60 Glucose, Serum, External 96 74 - 106 Albumin, External 3.9 3.4 - 5.0 Total Alkaline Phosphatase, External 106 46 - 116 ALT, External 26 16 - 63 AST, External 18 15 - 37 BUN, External 16 7 - 18 Calculated Calcium, External Calcium, External 9.5 8.5 - 10.1 Chloride, External 103 98 - 107 CO2, External 28.2 21.0 - 32.0 Creatinine, External 0.9 0.70 - 1.30 Fasting?, External Potassium, External 4.1 3.5 - 5.1 Sodium, External 140 136 - 145 Total Protein, External 7.2 6.4 - 8.2 Bilirubin, Total, External 0.5 0.2 - 1.0 Anion Gap 8.8 3 - 11 mmol/L Blood VENOUS BLOOD / Unknown 08/23/2020 Historical Provider CHEMISTRY & BLOOD GAS ORDERABLES documented in this encounter Visit Diagnoses Not on filedocumented in this encounter Care Teams Filament Cutter Relationship Specialty Start Date End Date Chiquita Brooks, SMOOTH PCP - General 09/29/14 documented as of this encounter
--- OUTSIDE RECORDS SUMMARY | 2024-04-21 21:01 | XMS_ITS | Encounter Summary ---
Author Organization [facility] Address [address] [place] [address] Care Team Providers Care Hand Plate Stacker Name Role Phone Todd Chiquita Carolyn SMOOTH Primary Care Provider [phone] Encounter Details Date Type Department Care Team (Late st Contact Info) Description 04/13/[address] [facility] Rheumatology [address] [place] [address] Rosenda Appiah RN Seropositive rheumatoid arthritis of multiple sites ([facility]) (Primary Dx); High risk medication use Social History Tobacco [...] as of this encounter Progress Notes * Rosenda Appiah RN - 04/13/2020 1401 EDT Standing orders have . New orders placed and faxed to [facility]. documented in this encounter Plan of Treatment Upcoming Encounters Date Type Department Care Team (Late st Contact Info) Description 09/11/2024 8:[address] [facility] Rheumatology [address] [place] [address] Dhara Cheng MD [address] [facility] [address] [place] [phone] documented as of this encounter Visit Diagnoses Diagnosis Seropositive rheumatoid arthritis of multiple sites ([facility])- Primary High risk medication use Encounter for long-term (current) use of other medications documented in this encounter Care Teams Hand Plate Stacker Relationship Specialty Start Date End Date Chiquita Brooks NP PCP - General 09/29/14 documented as of this encounter
--- OUTSIDE RECORDS SUMMARY | 2024-04-21 21:01 | XMS_ITS | Encounter Summary ---
Author Organization [facility] Address [address] [place] [address] Care Team Providers Care Network Director Name Role Phone Todd Chiquita Leon NP Primary Care Provider [phone] Reason for Visit * Reason Onset Date Comments Results 01/04/2021 Encounter Details Date Type Department Care Team (Late st Contact Info) Description 01/04/[address] [facility] Rheumatology [address] [place] [address] Eve Catherine RN Seropositive rheumatoid arthritis of multiple sites ([facility]); High risk medication use Social History Tobacco [...] Description 09/11/2024 8:[address] [facility] Rheumatology [address] [place] [address] Dhara Cheng MD [address] [facility] [address] [place] [phone] documented as of this encounter Procedures Procedure Name Priority Date/Time Associated Diagnosis Comments COMPLETE BLOOD COUNT AND DIFFERENTIAL Routine 01/03/2021 9:19 EDT Seropositive rheumatoid arthritis of multiple sites ([facility]) High risk medication use C REACTIVE PROTEIN Routine 01/03/2021 9: 19 EDT Seropositive rheumatoid arthritis of multiple sites ([facility]) High risk medication use COMPREHENSIVE METABOLIC PANEL (CMP) Routine 01/03/2021 9:19 EDT Seropositive rheumatoid arthritis of multiple sites ([facility]) High risk medication use documented in this encounter Results * (ABNORMAL) COMPLETE BLOOD COUNT AND DIFFERENTIAL (01/03/2021 9:19 EDT) WBC, External 10.88(A) 4.4 - 10.8 10 3/uL [facility] RBC, External 4.35(A) 4.36 - 5.78 10 6/uL [facility] Hemoglobin, External 15.5 13.5 - 17.5 g/dL [facility] HCT, External 44.6 40.0 - 50.0 % [facility] MCV, External 102.5(A) 80 - 95 fL [facility] MCH, External 35.6(A) 27.0 - 33.0 pg [facility] MCHC, External 34.8 32.0 - 36.0 % [facility] PLT, External 351 130 - 400 10 3/uL [facility] RDW-CV, External 13.2 11.8 - 14.1 % [facility] Neutrophils, External 65.0 % [facility] Lymphocytes, External 21.6 % [facility] Monocytes, External 8.9 % [facility] Eosinophils, External 3.4 % [facility] Basophils, External 0.7 % [facility] ABS Neutrophils, External 7.07(A) 1.2 - 6.7 10 3/uL [facility] ABS Lymphs, External 2.35 1.2 - 3.4 10 3/uL [facility] ABS Monocytes, External 0.97(A) 0.1 - 0.8 10 3/uL [facility] ABS Eosinophils, External 0.37 0.0 - 0.7 10 3/uL [facility] ABS Basophils, External 0.08 0.0 - 0.2 10 3/uL [facility] Blood VENOUS BLOOD / Unknown 01/03/2021 9:19 EDT Dhara Chegn MD PACKAGES & DNA PROBE ORDERABLES [facility] * (ABNORMAL) COMPREHENSIVE METABOLIC PANEL (CMP) (01/03/2021 9:19 EDT) GFR, Calculated, External >=60.00 >=60.00 mL/min/1. 73m2 [facility] Glucose, Serum, External 118(A) 74 - 106 mg/dL [facility] Albumin, External 3.7 3.4 - 5.0 g/dL [facility] Total Alkaline Phosphatase, External 96 46 - 116 U/L [facility] ALT, External 25 16 - 63 U/L [facility] AST, External 17 15 - 37 U/L [facility] BUN, External 17 7 - 18 mg/dL [facility] Calculated Calcium, External [facility] Calcium, External 9.0 8.5 - 10.1 mg/dL [facility] Chloride, External 105 98 - 107 mmol/L [facility] CO2, External 25.9 21.0 - 32.0 mmol/L [facility] Creatinine, External 0.9 0.70 - 1.30 mg/dL [facility] Fasting?, External [facility] Potassium, External 4.0 3.5 - 5.1 mmol/L [facility] Sodium, External 142 136 - 145 mmol/L [facility] Total Protein, External 6.9 6.4 - 8.2 g/dL [facility] Bilirubin, Total, External 0.4 0.2 - 1.0 mg/dL [facility] Blood VENOUS BLOOD / Unknown 01/03/2021 9:19 EDT Dhara Cheng MD CHEMISTRY & BLOOD GA S ORDERABLES Performing Organization Address City/[facility]/ZIP Co de Phone Number [facility] * (ABNORMAL) C REACTIVE PROTEIN (01/03/2021 9:19 EDT) C-Reactive Protein, External 0.33(A) 0.0 - 0.3 mg/dL [facility] Blood VENOUS BLOOD / Unknown 01/03/2021 9:19 EDT Dhara Cheng MD CHEMISTRY & BLOOD GA S ORDERABLES Performing Organization Address City/[facility] Co de Phone Number [facility] documented in this encounter Visit Diagnoses Diagnosis Seropositive rheumatoid arthritis of multiple sites ([facility]) High risk medication use Encounter for long-term (current) use of other medications documented in this encounter Care Teams Network Director Relationship Specialty Start Date End Date Chiquita Brooks, SMOOTH PCP - General 09/29/14 documented as of this encounter
--- OUTSIDE RECORDS SUMMARY | 2024-04-21 21:01 | XMS_ITS | Encounter Summary ---
Author Organization [facility] Address [address] [place] [address] Care Team Providers Care Residential Property Tax Appraiser Name Role Phone Chiquita Brooks TALLOW PUMPER Primary Care Provider [phone] Encounter Details Date Type Department Care Team (Late st Contact Info) Description 07/22/2020 Orders Only [facility] Rheumatology [address] [place] [phone] Chrystal Duvall RN Social History Tobacco Use Types Packs/Day [...] Description 09/11/2024 8:00 EST Office Visit [facility] Rheumatology [address] [place], [place] [phone] Dhara Cheng MD [address] [facility] [address] [place] [phone] documented as of this encounter Visit Diagnoses Not on filedocumented in this encounter Care Teams Residential Property Tax Appraiser Relationship Specialty Start Date End Date Chiquita Brooks NP PCP - General 09/29/14 documented as of this encounter
--- OUTSIDE RECORDS SUMMARY | 2024-04-21 21:01 | XMS_ITS | Encounter Summary ---
Author Organization [facility] Address [address] [place] [address] Care Team Providers Care Gravel Hauler Name Role Phone Todd Chiquita Leon MAGNETIC RESONANCE IMAGING DIRECTOR Primary Care Provider [phone] Reason for Visit * Reason Comments Follow-up the Pt.states he is good over all, and has occasional flare up in different joints. left shoulder hurts a bit today. Encounter Details Date Type Department Care Team (Latest Contact Info) Description 03/30/2022 8:00 EDT Office Visit [facility] Rheumatology [address] [place] [address] Dhara Cheng MD [address] 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) (Primary Dx); Macrocytosis without anemia; Monocytosis; Left shoulder tendonitis; Long-term use of immunosuppressant medication; Tobacco use Social History Tobacco Use Types Packs/Day [...] Sign Reading Time Taken Comments Blood Pressure 140/84 03/30/2022 0801 EDT Pulse 72 03/30/2022 0801 EDT Temperature 36.2 ??C (97.2 ??F) 03/30/2022 0801 EDT Respiratory Rate - - Oxygen Saturation - - Inhaled Oxygen Concentration - - Weight 87.1 kg (192 lb) 03/30/2022800 EDT Height 172.7 cm (5' 8) 03/30/2022800 EDT Body Mass Index 29.19 03/30/2022800 EDT documented in this encounter Functional Status [...] * Patient Instructions* Dhara Cheng MD - 03/30/2022 8:00 EDT Eye exam this fall for hydroxychloroquine monitoring Labs prior to next visit New job?? Cut down on, preferably quit, tobacco use, please documented in this encounter Progress Notes * Dhara Cheng MD - 03/30/2022 0800 EDT [facility] Rheumatology Chief Complaint Patient presents with ??? Follow-up the Pt.states he is good over all, and has occasional flare up in different joints. left shoulder hurts a bit today. HPI: Seropositive RA. Ponce has signs and [...] at the last visit. Today, Ponce says he is doing well overall. Ponce says he continues to have occasional brief flareups involving his hands and wrists, and at times, shoulders, a hip or knee. Today, he says his left shoulder is bothering him. 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 Occasionally takes APAP for pain. Current Outpatient Medications Medication ??? folic acid (FOLVITE) 1 mg tablet ??? Hydroquinone 4 % cream ??? hydrOXYchloroQUINE (PLAQUENIL) 200 mg tablet ??? methotrexate 2.5 mg tablet ??? valACYclovir (VALTREX) 500 mg tablet No current facility-administered medications for this visit. Allergies include: Patient has no known allergies. Patient Active Problem List Diagnosis ??? 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 Macrocytosis without anemia ??? Lymphomatoid papulosis, type A (HCC) ??? Long-term use of immunosuppressant medication ??? Anogenital herpesviral infection, unspecified Family History Problem Relation Age of Onset ??? Rheumatologic Disease Mother Social History: Still smoking just over a pack per day. Review of Systems: Denies shortness of breath, chest pain. 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 Follows with Dr Carreon annually. Eye exam, 05/17/21, [facility], Plaquenil monitoring; no toxicity. Had two doses of Covid vaccine. Hasn't had booster dose yet, and says he likely will not. Physical Examination: BP 140/84 (BP Cuff Location: Right arm, BP Cuff Sizes: Adult, regular) Pulse 72 Temp 36.2 ??C (97.2 ??F) Ht 172.7 cm (68) Wt 87.1 kg (192 lb) BMI 29.19 kg/m?? EYES: Conjunctivae not injected. NECK: No lymphadenopathy. LUNGS: Clear to auscultation bilaterally. CARDIOVASCULAR: Regular rate and rhythm. No murmur. No peripheral edema. JOINT EXAM: ??No synovitis of finger or toe joints; full passive painless flexion of digits. Left wrist with mild tendon swelling at ECU tendon, non- tender, no discomfort with ROM wrist. Moderate reduction in active left shoulder internal and external rotation; improvement in ROM passively. Mild bilateral flexion contractures of elbows, chronic. Reduction in external rotation of right more than left hip, without groin pain. Knee flexion is full, no discomfort. SKIN: No obvious skin lesions on exam today. Labs: Phlebotomy Only on 03/29/2022 Component Date Value Ref Range Status ??? Sodium 03/29/2022 142 136 - 145 mmol/L Final ??? Potassium 03/29/2022 4.5 3.5 - 5.0 mmol/L Final ??? Chloride 03/29/2022 106 96 - 110 mmol/L Final ??? CO2 Total 03/29/2022 25 22 - 32 mmol/L Final ??? Glucose 03/29/2022 87 70 - 100 mg/dL Final ??? BUN 03/29/2022 11 10 - 26 mg/dL Final ??? Creatinine 03/29/2022 0.70 0.66 - 1.25 mg/dL Final ? ? eGFR 03/29/2022 110 >60 mL/min/1.73m2 Final ??? Total Protein 03/29/2022 7.4 6.3 - 8.2 g/dL Final ??? Albumin 03/29/2022 4.5 3.4 - 4.9 g/dL Final ??? Alkaline Phosphatase 03/29/2022 94 38 - 126 U/L Final ??? AST 03/29/2022 26 15 - 46 U/L Final ? ? ALT 03/29/2022 18 <50 U/L Final ? ? Bilirubin, Total 03/29/2022 0.4 <1.4 mg/dL Final ??? Calcium 03/29/2022 9.4 8.5 - 10.5 mg/dL Final ??? Albumin/Globulin Ratio 03/29/2022 1.6 1.0 - 2.5 Final ??? Anion Gap 03/29/2022 11 5 - 14 Final ??? WBC 03/29/2022 12.53 (A) 4.00 - 10.40 K/cmm Final ??? RBC 03/29/2022 4.43 4.36 - 5.78 M/cmm Final ??? Hemoglobin 03/29/2022 15.7 13.8 - 17.3 gm/dL Final ??? HCT 03/29/2022 45.3 39.5 - 50.2 % Final ??? MCV 03/29/2022 102 (A) 81 - 95 fl Final ??? MCH 03/29/2022 35.4 (A) 27.6 - 33.0 pg Final ??? MCHC 03/29/2022 34.7 32.8 - 36.4 gm/dL Final ? ? RDW-CV 03/29/2022 13.4 <14.2 % Final ? ? RDW-SD 03/29/2022 50.5 (A) <46.0 fl Final ??? PLT 03/29/2022 368 141 - 377 K/cmm Final ??? MPV 03/29/2022 9.5 9.5 - 12.7 fl Final ??? Neutrophils 03/29/2022 66.2 % Final ??? Lymphocytes 03/29/2022 20.6 % Final ??? Monocytes 03/29/2022 8.9 % Final ??? Eosinophils 03/29/2022 3.1 % Final ??? Basophils 03/29/2022 0.8 % Final ??? Immature Grans 03/29/2022 0.4 % Final ??? Absolute Neutrophils 03/29/2022 8.29 2.20 - 8.85 K/cmm Final ??? Absolute Lymphocytes 03/29/2022 2.58 1.09 - 3.30 K/cmm Final ??? Absolute Monocytes 03/29/2022 1.12 (A) 0.10 - 0.80 K/cmm Final ??? Absolute Eosinophils 03/29/2022 0.39 0.03 - 0.61 K/cmm Final ??? Absolute Basophils 03/29/2022 0.10 0.01 - 0.11 K/cmm Final ??? Absolute Immature Grans 03/29/2022 0.05 0.00 - 0.06 K/cmm Final ??? Type of Differential: 03/29/2022 Auto Final ? ? C-Reactive Protein 03/29/2022 <5.0 <10.0 mg/L Final Assessment and Plan: 1. 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) (HCC) Low rheumatoid arthritis disease activity based on history, exam, and labs. 2. Macrocytosis without anemia Stable. Likely from methotrexate. 3. Monocytosis Chronic, likely from tobacco use. 4. Left shoulder tendonitis From overuse. Discussed perhaps finding a job that is less physical and demanding on his joints. 5. Long-term use of immunosuppressant medication No sign of adverse effects of DMARD therapy. 6. Tobacco use We discussed tobacco use again, and Ponce says he will work on smoking cessation. Check labs prior to next visit. Ponce is not interested in Covid booster. Follow up in 5 months. Dhara Cheng MD 03/30/2022 8:12 documented in this encounter Plan of Treatment Upcoming Encounters Date Type Department Care Team (Late st Contact Info) Description 09/11/2024 8:00 EST Office Visit [facility] Rheumatology [address] [place] [phone] Dhara Cheng MD [address] [facility] [address] [place] [phone] documented as of this encounter Visit Diagnoses Diagnosis 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)- Primary Macrocytosis without anemia Other specified diseases of blood and blood-forming organs Monocytosis Monocytosis (symptomatic) Left shoulder tendonitis Long-term use of immunosuppressant medication Encounter for long-term (current) use of other medications Tobacco use Tobacco use disorder documented in this encounter Care Teams Gravel Hauler Relationship Specialty Start Date End Date Chiquita Brooks NP PCP - General 09/29/14 documented as of this encounter
--- OUTSIDE RECORDS SUMMARY | 2024-04-21 21:01 | XMS_ITS | Encounter Summary ---
Author Organization [facility] Address [address] [place] [address] Care Team Providers Care Sewer Pipe Layer Helper Name Role Phone Chiquita Brooks NP Primary Care Provider [phone] Reason for Visit * Reason Onset Date Comments Pre-visit Orders 11/23/2023 Encounter Details Date Type Department Care Team (Late st Contact Info) Description 11/23/2023 Telephone [facility] Rheumatology [address] [place] [address] Dhara Cheng MD [address] [facility] [address] [place] [address] Pre-visit Orders Social History Tobacco Use Types Packs/Day Years [...] encounter Miscellaneous Notes * Telephone Encounter - Eileen Vidales RN - 11/23/2023 1412 EDT Reviewed last note. Patient due to have labs prior to next follow-up visit and is on methotrexate. Placed standing lab orders at this time. Left voicemail for patient relaying lab orders are in placeand he is to complete them prior to next appointment on 11/26/23. Instructed patient to call clinic if he needs the lab orders faxed to another facility. * Telephone Encounter - Latasha García - 11/23/2023 1405 EDT Patient has appt with Dr. Cheng on Saturday 11/25. Will need lab order placed so he can complete prior to visit. documented in this encounter Plan of Treatment Upcoming Encounters Date Type Department Care Team (Late st Contact Info) Description 09/11/2024 8:00 EST Office Visit [facility] Rheumatology [address], [place] [address] Dhara Cheng MD 130 [facility] [address] [place] [address] Scheduled Orders Name Type Priority Associated Diagnoses Orde r Schedule COMPLETE BLOOD COUNT AND DIFFERENTIAL Lab Routine Seropositive rheumatoid arthritis of multiple joints ([facility]) High risk medication use 4 Occurrences starting 11/23/2023 until 11/22/2024, 2 completed COMPREHENSIVE METABOLIC PANEL (CMP) Lab Routine Seropositive rheumatoid arthritis of multiple joints ([facility]) High risk medication use 4 Occurrences starting 11/23/2023 until 11/22/2024, 2 completed C REACTIVE PROTEIN Lab Routine Seropositive rheumatoid arthritis of multiple joints ([facility]) High risk medication use 4 Occurrences starting 11/23/2023 until 11/22/2024, 2 completed documented as of this encounter Results * C REACTIVE PROTEIN (04/10/2024 10:18 EDT) C-Reactive Protein <5.0 <10.0 mg/L 04/10/2024 11:03 [facility] Blood VENOUS BLOOD / Unknown Venipuncture / Unknown 04/10/2024 10:18 EDT 04/10/2024 10:22 EDT Dhara Cheng MD CHEMISTRY & BLOOD GA S ORDERABLES [facility] [address] [place] [address] * COMPREHENSIVE METABOLIC PANEL (CMP) (04/10/2024 10:18 EDT) Sodium 140 136 - 145 mmol/L 04/10/2024 11:03 [facility] Potassium 4.2 3.5 - 5.0 mmol/L 04/10/2024 11:03 [facility] Chloride 105 96 - 110 mmol/L 04/10/2024 11:03 [facility] CO2 Total 25 22 - 32 mmol/L 04/10/2024 11:03 [facility] Glucose 85 70 - 99 mg/dl 04/10/2024 11:03 [facility] BUN 14 10 - 26 mg/dL 04/10/2024 11:03 [facility] Creatinine 0.71 0.66 - 1.25 mg/dL 04/10/2024 11:03 [facility] eGFR 108 >60 mL/min/1.7 3m2 04/10/2024 11:03 [facility] Total Protein 7.0 6.3 - 8.2 g/dL 04/10/2024 11:03 [facility] Albumin 4.2 3.4 - 4.9 g/dL 04/10/2024 11:03 [facility] Alkaline Phosphatase 77 38 - 126 U/L 04/10/2024 11:03 [facility] AST 27 15 - 46 U/L 04/10/2024 11:03 [facility] ALT 26 <50 U/L 04/10/2024 11:03 [facility] Bilirubin, Total <0.5 <1.4 mg/dL 04/10/20 11:03 [facility] Calcium 9.7 8.5 - 10.5 mg/dL 04/10/2024 11:03 [facility] Albumin/Globulin Ratio 1.5 1.0 - 2.5 04/10/2024 11:03 [facility] Anion Gap 10 5 - 14 mmol/L 04/10/2024 11:03 [facility] Blood VENOUS BLOOD / Unknown Venipuncture / Unknown 04/10/2024 10:18 EDT 04/10/2024 10:22 EDT Dhara Cheng MD CHEMISTRY & BLOOD GA S ORDERABLES Performing Organization Address City/State/[facility] Co de Phone Number [facility] [address] [place] [address] * (ABNORMAL) COMPLETE BLOOD COUNT AND DIFFERENTIAL (04/10/2024 10:18 EDT) WBC 12.20(H) 4.00 - 10.40 K/cmm 04/10/2024 10:49 [facility] RBC 4.45 4.36 - 5.78 M/cmm 04/10/2024 10:49 [facility] Hemoglobin 15.0 13.8 - 17.3 g/dL 04/10/2024 10:49 [facility] HCT 44.8 39.5 - 50.2 % 04/10/2024 10:49 [facility] MCV 101(H) 81 - 95 fL 04/10/2024 10:49 [facility] MCH 33.7(H) 27.6 - 33.0 pg 04/10/2024 10:49 [facility] MCHC 33.5 32.8 - 36.4 g/dL 04/10/2024 10:49 [facility] RDW-CV 13.9 <14.2 % 04/10/2024 10:49 [facility] RDW-SD 50.7(H) <46.0 fl 04/10/2024 10:49 [facility] PLT 404(H) 141 - 377 K/cmm 04/10/2024 10:49 [facility] MPV 9.1(L) 9.5 - 12.7 fL 04/10/2024 10:49 [facility] % Neutrophils 61.0 Not Indicated % 04/10/2024 10:49 [facility] % Lymphocytes 26.1 Not Indicated % 04/10/2024 10:49 [facility] % Monocytes 8.5 Not Indicated % 04/10/2024 10:49 [facility] % Eosinophils 3.4 Not Indicated % 04/10/2024 10:49 [facility] % Basophils 0.6 Not Indicated % 04/10/2024 10:49 [facility] % Immature Grans 0.4 <0.9 % 04/10/2024 10:49 [facility] Absolute Neutrophils 7.44 2.20 - 8.85 K/cmm 04/10/2024 10:49 [facility] Absolute Lymphocytes 3.19 1.09 - 3.30 K/cmm 04/10/2024 10:49 [facility] Absolute Monocytes 1.04(H) 0.10 - 0.80 K/cmm 04/10/2024 10:49 [facility] Absolute Eosinophils 0.41 0.03 - 0.61 K/cmm 04/10/2024 10:49 [facility] ABS Basophils 0.07 0.01 - 0.11 K/cmm 04/10/2024 10:49 [facility] Absolute Immature Grans 0.05 0.00 - 0.06 K/cmm 04/10/2024 10:49 [facility] Type of Differential: Auto 04/10/2024 10:[address] [facility] Blood VENOUS BLOOD / Unknown Venipuncture / Unknown 04/10/2024 10:18 EDT 04/10/2024 10:46 EDT Dhara Cheng MD PACKAGES & DNA PROBE ORDERABLES Performing Organization Address [facility]/ZIP Co de Phone Number [facility] [address] [place] [address] * C REACTIVE PROTEIN (11/26/2023 7:16 EDT) C-Reactive Protein <5.0 <10.0 mg/L 11/26/2023 8:12 EDT [facility] Blood VENOUS BLOOD / Unknown Venipuncture / Unknown 11/26/2023 7:16 EDT 11/26/2023 7:32 EDT Dhara Cheng MD CHEMISTRY & BLOOD GA S ORDERABLES Performing Organization Address City/[facility]/ZIP Co de Phone Number [facility] [address] [place] [address] * (ABNORMAL) COMPREHENSIVE METABOLIC PANEL (CMP) (11/26/2023 7:16 EDT) Sodium 142 136 - 145 mmol/L 11/26/2023 8:26 [facility] Potassium 4.0 3.5 - 5.0 mmol/L 11/26/2023 8:26 [facility] Chloride 110 96 - 110 mmol/L 11/26/2023 8:26 [facility] CO2 Total 24 22 - 32 mmol/L 11/26/2023 8:26 [facility] Glucose 105(H) 70 - 99 mg/dl 11/26/2023 8:26 [facility] BUN 15 10 - 26 mg/dL 11/26/2023 8:26 [facility] Creatinine 0.78 0.66 - 1.25 mg/dL 11/26/2023 8:26 [facility] eGFR 106 >60 mL/min/1.7 3m2 11/26/2023 8:26 [facility] Total Protein 6.6 6.3 - 8.2 g/dL 11/26/2023 8:26 [facility] Albumin 3.9 3.4 - 4.9 g/dL 11/26/2023 8:26 [facility] Alkaline Phosphatase 78 38 - 126 U/L 11/26/2023 8:26 [facility] AST 26 15 - 46 U/L 11/26/2023 8:26 [facility] ALT 21 <50 U/L 11/26/2023 8:26 [facility] Bilirubin, Total 0.5 <1.4 mg/dL 11/26/19 8:26 [facility] Calcium 9.3 8.5 - 10.5 mg/dL 11/26/2023 8:26 [facility] Albumin/Globulin Ratio 1.4 1.0 - 2.5 11/26/2023 8:26 [facility] Anion Gap 8 5 - 14 mmol/L 11/26/2023 8:26 [facility] Blood VENOUS BLOOD / Unknown Venipuncture / Unknown 11/26/2023 7:16 EDT 11/26/2023 7:32 EDT Dhara Cheng MD CHEMISTRY & BLOOD GA S ORDERABLES [facility] [address] [place] [address] * (ABNORMAL) COMPLETE BLOOD COUNT AND DIFFERENTIAL (11/26/2023 7:16 EDT) WBC 9.14 4.00 - 10.40 K/cmm [facility]2023 [facility] RBC 4.26(L) 4.36 - 5.78 M/cmm 11/26/2023 7:59 [facility] Hemoglobin 14.8 13.8 - 17.3 g/dL 11/26/2023 7:59 [facility] HCT 43.6 39.5 - 50.2 % 11/26/2023 7:59 [facility] MCV 102(H) 81 - 95 fL 11/26/2023 7:59 [facility] MCH 34.7(H) 27.6 - 33.0 pg 11/26/2023 7:59 [facility] MCHC 33.9 32.8 - 36.4 g/dL 11/26/2023 7:59 [facility] RDW-CV 13.3 <14.2 % 11/26/2023 7:59 [facility] RDW-SD 50.0(H) <46.0 fl 11/26/2023 7:59 [facility] PLT 351 141 - 377 K/cmm 11/26/2023 7:59 [facility] MPV 9.4(L) 9.5 - 12.7 fL 11/26/2023 7:59 [facility] % Neutrophils 68.2 % 11/26/2023 7:59 [facility] % Lymphocytes 19.9 % 11/26/2023 7:59 [facility] % Monocytes 7.4 % 11/26/2023 7:59 [facility] % Eosinophils 3.4 % 11/26/2023 7:59 [facility] % Basophils 0.8 % 11/26/2023 7:59 [facility] % Immature Grans 0.3 % 11/26/19 7:59 [facility] Absolute Neutrophils 6.23 2.20 - 8.85 K/cmm 11/26/2023 7:59 [facility] Absolute Lymphocytes 1.82 1.09 - 3.30 K/cmm 11/26/2023 7:59 [facility] Absolute Monocytes 0.68 0.10 - 0.80 K/cmm 11/26/2023 7:59 EDT [facility] Absolute Eosinophils 0.31 0.03 - 0.61 K/cmm 11/26/2023 7:59 EDT [facility] ABS Basophils 0.07 0.01 - 0.11 K/cmm 11/26/2023 7[facility]59 [facility] Absolute Immature Grans 0.03 0.00 - 0.06 K/cmm 11/26/2023 7:59 EDT [facility] Type of Differential: Auto 11/26/2023 7:59 EDT [facility] Blood VENOUS BLOOD / Unknown Venipuncture / Unknown 11/26/2023 7:16 EDT 11/26/2023 7:33 EDT Dhara Cheng MD PACKAGES & DNA PROBE ORDERABLES Performing Organization Address City/State/[facility] Co de Phone Number [facility] [address] [place] [phone] documented in this encounter Visit Diagnoses Diagnosis Seropositive rheumatoid arthritis of multiple joints ([facility] Primary High risk medication use Encounter for long-term (current) use of other medications documented in this encounter Care Teams Sewer Pipe Layer Helper Relationship Specialty Start Date End Date Chiquita Brooks NP PCP - General 09/29/14 documented as of this encounter
--- OUTSIDE RECORDS SUMMARY | 2024-04-21 21:01 | XMS_ITS | Encounter Summary ---
Author Organization [facility] Address [address] [place] [address] Care Team Providers Care Neighborhood Service Center Director Name Role Phone RafimattneryChiquita MEDICAL ASSISTANT INTERNAL MEDICINE Primary Care Provider [phone] Reason for Visit * Reason Comments Follow-up RA- Pt states- no sy mptoms. Attributes this to being active. Encounter Details Date Type Department Care Team (Latest Contact Info) Description 04/19/2020 10:00 EDT Office Visit [facility] Rheumatology [address] [place] [address] Dhara Cheng MD [address] [facility] [address] [place] [address] Seropositive rheumatoid arthritis (HCC-CMS) (Primary Dx); Macrocytosis without anemia; Long-term use of immunosuppressant medication; Lymphocytosis; Neck pain Social History Tobacco Use Types Packs/Day Years [...] Sign Reading Time Taken Comments Blood Pressure 138/86 04/19/2020 1001 EDT Pulse 77 04/19/2020 1001 EDT Temperature 36.2 ??C (97.2 ??F) 04/19/2020 1001 EDT Respiratory Rate - - Oxygen Saturation - - Inhaled Oxygen Concentration - - Weight 85.3 kg (188 lb) 04/19/2020 1001 EDT Height 172.7 cm (5' 8) 04/19/2020 1001 EDT Body Mass Index 28.59 04/19/2020 1001 EDT documented in this encounter Patient Instructions * Patient Instructions* Dhara Cheng MD - 04/19/2020 10:00 EDT --Eye exam for Plaquenil monitoring --Labs in 3 months instead of 4 to recheck the white blood cells --Recommend flu vaccine --Chiropractor, massage or physical therapy for your neck --Take MTX 3 tabs, and 3 tabs 12 hrs later documented in this encounter Progress Notes * Dhara Cheng MD - 04/19/2020 1000 EDT [facility] Chief Complaint Patient presents with ??? Follow-up RA- Pt states- no symptoms. Attributes this to being active. HPI: Seropositive RA. Ponce has signs and [...] visit. Ponce says he is doing well. He denies any joint pain or significant stiffness. He says he has been very activethis summer. Ponce does note for the past month or so neck pain at the base of the neck with moving his head. This has improved, but in the last couple of weeks has had episodic right numbness/tingling sensation down the right arm, to the right thumb. Says he is contemplating chiropractor or massage. Current Outpatient Medications Medication ??? folic acid [...] a pack per day. This is unchanged. Review of Systems: Denies shortness of breath, chest pain. 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 Has appointment with Dr Carreon on 05/17. Finds if he takes all 6 tabs of MTX, he has difficulty sleeping. So now taking 3 tabs one day and 3tabs next. Says weight is stable. Physical Examination: BP 138/86 (BP Cuff Location: Left arm) Pulse 77 Temp 36.2 ??C (97.2 ??F) Ht 172.7 cm (68) Wt 85.3 kg (188 lb) BMI 28.59 kg/m?? EYES: Conjunctivae not injected. NECK: Reduced lateral rotation of neck when looking to his left, with mild discomfort. No lymphadenopathy. LUNGS: Clear to auscultation bilaterally. CARDIOVASCULAR: Regular rate and rhythm. No murmur. No peripheral edema. JOINT EXAM: ??No synovitis of wrists, finger or toe joints; full passive painless flexion of digits. Mild reduction in right shoulder internal and external rotation, chronic. Mild bilateral flexion contractures of elbows. Reduction in external rotation of right more than left hip, with mild groin pa in. Knee flexion is full, no discomfort. SKIN: Erythematous papule right elbow. Labs: No visits with results within 2 Month(s) from this visit. Latest known visit with results is: Abstract on 12/18/2019 Component Date Value Ref Range Status ??? WBC, External 12/17/2019 10.43 4.4 - 10.8 Final ??? RBC, External 12/17/2019 4.28* 4.50 - 6.00 Final ??? Hemoglobin, External 12/17/2019 14.8 13.5 - 17.5 Final ??? HCT, External 12/17/2019 43.7 40.0 - 50.0 Final ??? MCV, External 12/17/2019 102.1* 80 - 95 Final ??? MCH, External 12/17/2019 34.6* 27.0 - 33.0 Final ??? MCHC, External 12/17/2019 33.9 32.0 - 36.0 Final ??? PLT, External 12/17/2019 318 130 - 400 Final ??? RDW-CV, External 12/17/2019 13.2 11.8 - 14.1 Final ??? Neutrophils, External 12/17/2019 59.0 Final ??? Lymphocytes, External 12/17/2019 26.7 Final ??? Monocytes, External 12/17/2019 10.4 Final ??? Eosinophils, External 12/17/2019 3.4 Final ??? Basophils, External 12/17/2019 0.4 Final ??? ABS Neutrophils, External 12/17/2019 6.17 1.2 - 6.7 Final ??? ABS Lymphs, External 12/17/2019 2.78 1.2 - 3.4 Final ??? ABS Monocytes, External 12/17/2019 1.08* 0.11 - 0.7 Final ??? ABS Eosinophils, External 12/17/2019 0.35 0.0 - 0.7 Final ??? ABS Basophils, External 12/17/2019 0.04 0.0 - 0.2 Final ? ? GFR, Calculated, External 12/17/2019 >60 Final ??? Glucose, Serum, External 12/17/2019 93 74 - 106 Final ??? Albumin, External 12/17/2019 4.0 3.4 - 5.0 Final ??? Total Alkaline Phosphatase, Display Artist* 12/17/2019 106 46 - 116 Final ??? ALT, External 12/17/2019 28 16 - 63 Final ??? AST, External 12/17/2019 24 16 - 37 Final ??? BUN, External 12/17/2019 13 7 - 18 Final ??? Calcium, External 12/17/2019 8.9 8.5 - 10.1 Final ??? Chloride, External 12/17/2019 103 98 - 107 Final ??? CO2, External 12/17/2019 24.4 21.0 - 32.0 Final ??? Creatinine, External 12/17/2019 1.00 0.70 - 1.30 Final ??? Potassium, External 12/17/2019 4.0 3.5 - 5.1 Final ??? Sodium, External 12/17/2019 137 136 - 145 Final ??? Total Protein, External 12/17/2019 7.3 6.4 - 8.2 Final ??? Bilirubin, Total, External 12/17/2019 0.5 0.2 - 1.0 Final ??? C-Reactive Protein, External 12/17/2019 0.61* 0.0 - 0.3 Final Labs 04/16/20, [facility]: CMP wnl. CRP 0.32 mg/dL. WBC 12.62, HGB 14.7, PLT 350, MCV 104, ANC 7650, ALYC 3550. Assessment and Plan: 1. Seropositive rheumatoid arthritis (HCC-CMS) Low to no RA disease activity based on joint exam, history and lab results. 2. Macrocytosis without anemia Chronic but slightly worse this visit, with an increase in WBC, ALYC and ANC. Denies recent illness. Says he feels well. 3. Long-term use of immunosuppressant medication Check labs in 3 months rather than 4 months due to CBC abnormalities. 4. Lymphocytosis See above. 5. Neck pain With C6 radicular symptoms. Ponec will try chiropractor or massage. Follow up in 4 months. Recommend flu vaccine. Eye exam for HCQ monitoring is due. Dhara Cheng MD 04/19/2020 10:12 documented in this encounter Plan of Treatment Upcoming Encounters Date Type Department Care Team (Late st Contact Info) Description 09/11/2024 8:00 EST Office Visit [facility] Rheumatology [address] [place], [place] [address] Dhara Cheng MD 130 [facility] [address] [place] [phone] documented as of this encounter Visit Diagnoses Diagnosis Seropositive rheumatoid arthritis (HCC-CMS)- Primary Rheumatoid arthritis Macrocytosis without anemia Other specified diseases of blood and blood-forming organs Long-term use of immunosuppressant medication Encounter for long-term (current) use of other medications Lymphocytosis Lymphocytosis (symptomatic) Neck pain Cervicalgia documented in this encounter Care Teams Neighborhood Service Center Director Relationship Specialty Start Date End Date Chiquita Brooks NP PCP - General 09/29/14 documented as of this encounter
--- OUTSIDE RECORDS SUMMARY | 2024-04-21 21:01 | XMS_ITS | Encounter Summary ---
Author Organization [facility] Address [address] [place] [address] Care Team Providers Care Direct Service Professional Name Role Phone Rafimattnery Chiquita Leon AUDIO PRODUCTION INSTRUCTOR Primary Care Provider [phone] Reason for Visit * Reason Comments Other Encounter Details Date Type Department Care Team (Late st Contact Info) Description 12/13/2020 Refill [facility] Rheumatology [address] [place] [address] Dhara Cheng MD 130 [facility] [address] [place] [address] Other Social History Tobacco Use Types Packs/Day Years [...] Dispensed Refills Start Date End Da te hydrOXYchloroQUINE (PLAQUENIL) 200 mg tablet TAKE ONE TABLET BY MOUTH EVERY DAY 90 Tab 3 12/14/2020 12/14/2021 documented in this encounter Miscellaneous Notes * Telephone Encounter - Eve Catherine RN - 12/14/2020 8496 EDT Last visit note reviewed and follow up scheduled for 01/04/21. Refill sent as noted. documented in this encounter Plan of Treatment Upcoming Encounters Date Type Department Care Team (Late st Contact Info) Description 09/11/2024 8:00 EST Office Visit [facility] Rheumatology [address] [place], [place] [address] Dhara Cheng MD 130 [facility] [address] [place] [phone] documented as of this encounter Visit Diagnoses Not on filedocumented in this encounter Discontinued Medications Medication Sig Discontinue Reason Start Date End Da te hydrOXYchloroQUINE (PLAQUENIL) 200 mg tablet 1 tab(s) orally once daily 12/22/2019 12/14/2020 documented as of this encounter Care Teams Direct Service Professional Relationship Specialty Start Date End Date Chiquita Brooks NP PCP - General 09/29/14 documented as of this encounter
--- OUTSIDE RECORDS SUMMARY | 2024-04-21 21:01 | XMS_ITS | Encounter Summary ---
Author Organization [facility] Address [address] [place] [address] Care Team Providers Care Uptwist Spinner Name Role Phone RafiChiquita stringer SUCTION DRUM DRIER OPERATOR Primary Care Provider [phone] Reason for Visit * Reason Comments Follow-up RA: the Pt.states th at doing pretty good and nothing bothers specifically. Encounter Details Date Type Department Care Team (Latest Contact Info) Description 08/31/2022 8:00 EST Office Visit [facility] Rheumatology [address] [place] [address] Dhara Cheng MD [address] [facility] [address] [place] [address] 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) (Primary Dx); Macrocytosis without anemia; Essential hypertension; Tobacco use; Long-term use of immunosuppressant medication Social History [...] Sign Reading Time Taken Comments Blood Pressure 150/96 08/31/2022 0804 EST Pulse 68 08/31/2022 0804 EST Temperature 36.4 ??C (97.5 ??F) 08/31/2022 0804 EST Respiratory Rate - - Oxygen Saturation - - Inhaled Oxygen Concentration - - Weight 85.7 kg (189 lb) 08/31/2022 0804 EST Height 172.7 cm (5' 8) 08/31/2022 0804 EST Body Mass Index 28.74 08/31/2022 0804 EST documented in this encounter Functional Status [...] * Patient Instructions* Dhara Cheng MD - 08/31/2022 8:00 EST Check in with your PCP regarding blood pressure, colonoscopy and smoking cessation assistance Labs prior to next visit documented in this encounter Progress Notes * Dhara Cheng MD - 08/31/2022 0800 EST [facility] Chief Complaint Patient presents with ??? Follow-up RA: the Pt.states that doing pretty good and nothing bothers specifically. HPI: Seropositive RA. Ponce has signs and symptoms suggesting rheumatoid arthritis. CCP>250, RF 1510,RACH 160 centromere pattern, mildly low C4 complement, negative dsDNA, negative anti-PHILIP. No significant erosive disease on plain films of hands/feet. With the positive RACH with centromere pattern, itis possible that he may develop an overlap syndrome. Started MTX in 02/2018, added to HCQ, and this w orked well. ? INTERVAL HISTORY: Ponce returns for 4 month follow up. No medication changes were made at the last visit. Today, Ponce says he is feeling pretty good today. Ponce says he continues to have occasional brief flareups, lasting a day or two, involving his hands and wrists, and at times, shoulders, a hip orknee. Nothing particularly is bothering him today but he mentions he was having a flare up involving his left hand on the day of his labs. Continues in a physically demanding job and hopes to move onto something else this summer. Occasionally/rarely takes APAP for pain. Outpatient Encounter Medications as of 08/31/2022 Medication Sig ??? folic acid (FOLVITE) 1 mg tablet 1 tab(s) orally once a day ??? [DISCONTINUED] Hydroquinone 4 % cream Apply twice daily to affected facial areas (Patient not taking: No sig reported) ??? hydrOXYchloroQUINE (PLAQUENIL) 200 mg tablet TAKE ONE TABLET BY MOUTH EVERY DAY ??? methotrexate 2.5 mg tablet Take 6 tabs one day a week. ??? valACYclovir (VALTREX) 500 mg tablet 1 tab(s) orally every morning No facility-administered encounter medications on file as of 08/31/2022. Allergies include: Patient has no known allergies. Patient Active Problem List Diagnosis ??? 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 Macrocytosis without anemia ??? Lymphomatoid papulosis, type A (HCC) ??? Long-term use of immunosuppressant medication ??? Anogenital herpesviral infection, unspecified ??? Tobacco use Family History Problem Relation Age of Onset ??? Rheumatologic Disease Mother Social History: Still smoking just over a pack per day. Hasn't been able to make any changes, but wants to, knowing the ramifications of smoking on his health and other areas. Review of Systems: Denies shortness of breath, chest pain. 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 Follows with Dr Carreon annually. Eye exam, this past fall (2021), [facility] [place], Plaquenil monitoring; and per Ponce, no toxicity. Physical Examination: BP (!) 150/96 (BP Cuff Location: Right arm, BP Patient Position: Sitting, BP Cuff Sizes: Adult, regular) Pulse 68 Temp 36.4 ??C (97.5 ??F) Ht 172.7 cm (68) Wt 85.7 kg (189 lb) BMI 28.74 kg/m?? EYES: Conjunctivae not injected. NECK: No lymphadenopathy. LUNGS: Clear to auscultation bilaterally. CARDIOVASCULAR: Regular rate and rhythm. No murmur. No peripheral edema. JOINT EXAM: ??No synovitis of finger or toe joints; full passive painless flexion of digits. Left wrist with mild tendon swelling at ECU tendon, non- tender, no discomfort with ROM wrist. Mild reduction in ROM shoulders, without pain today. Mild bilateral flexion contractures of elbows, chronic. Reduction in external rotation of right more than left hip, without groin pain. Knee flexion is full, no discomfort. SKIN: No obvious skin lesions on exam today. Labs: Abstract on 08/29/2022 Component Date Value Ref Range Status ??? WBC, External 08/25/2022 11.64 (A) 4.4 - 10.8 Final ??? RBC, External 08/25/2022 4.38 4.36 - 5.78 Final ??? Hemoglobin, External 08/25/2022 15.2 13.5 - 17.5 Final ??? HCT, External 08/25/2022 45.2 40.0 - 50.0 Final ??? MCV, External 08/25/2022 103 (A) 80 - 95 Final ??? MCH, External 08/25/2022 34.7 (A) 27.0 - 33.0 Final ??? MCHC, External 08/25/2022 33.6 32.0 - 36.0 Final ??? PLT, External 08/25/2022 366 130 - 400 Final ??? RDW-CV, External 08/25/2022 13.3 11.8 - 14.1 Final ??? Neutrophils, External 08/25/2022 60.2% Final ??? Lymphocytes, External 08/25/2022 26.9% Final ??? Monocytes, External 08/25/2022 9.2% Final ??? Eosinophils, External 08/25/2022 2.7% Final ??? Basophils, External 08/25/2022 0.7% Final ??? ABS Neutrophils, External 08/25/2022 7.01 (A) 1.2 - 6.7 Final ??? ABS Lymphs, External 08/25/2022 3.13 1.2 - 3.4 Final ??? ABS Monocytes, External 08/25/2022 1.07 (A) 0.1 - 0.8 Final ??? ABS Eosinophils, External 08/25/2022 0.31 0.0 - 0.7 Final ??? ABS Basophils, External 08/25/2022 0.08 0.0 - 0.2 Final ??? GFR, Calculated, External 08/25/2022 102.12 60 Final ??? Glucose, Serum, External 08/25/2022 93 74 - 106 Final ??? Albumin, External 08/25/2022 3.9 3.4 - 5.0 Final ??? Total Alkaline Phosphatase, Education Sales Consultant* 08/25/2022 107 46 - 116 Final ??? ALT, External 08/25/2022 26 16 - 63 Final ??? AST, External 08/25/2022 25 15 - 37 Final ??? BUN, External 08/25/2022 14 7 - 18 Final ??? Calcium, External 08/25/2022 9.4 8.5 - 10.1 Final ??? Chloride, External 08/25/2022 105 98 - 107 Final ??? CO2, External 08/25/2022 27.8 21.0 - 32.0 Final ??? Creatinine, External 08/25/2022 0.9 0.70 - 1.30 Final ??? Potassium, External 08/25/2022 4.1 3.5 - 5.1 Final ??? Sodium, External 08/25/2022 141 136 - 145 Final ??? Total Protein, External 08/25/2022 7.6 6.4 - 8.2 Final ??? Bilirubin, Total, External 08/25/2022 0.5 0.2 - 1.0 Final ??? C-Reactive Protein, External 08/25/2022 0.61 (A) 0.0 - 0.3 mg/dL Final-Edited Assessment and Plan: 1. Seropositive rheumatoid arthritis of multiple joints ([facility] ([facility]) RAPID3 SCORES AND INTERPRETATION 08/31/2022 Functional Status 0 Pain Tolerance 1.5 Global Estimate .5 RAPID3 2 Interpretation Near Remission Ponce is doing well from rheumatoid arthritis perspective. He has brief flare ups, and these are usually related to his physically demanding job. Ponce is hoping to change jobs to something less demanding this summer. We had a discussion again about the impact of tobacco use and increased cardiovascular risk factors, which is 1.5 times greater than traditional factors due to rheumatoid arthritis.Blood pressure has been high as well, compounding the risk. 2. Macrocytosis without anemia Stable, likely from methotrexate. 3. Essential hypertension Encouraged Ponce to follow up with PCP for hypertension, need for colonoscopy, and smoking cessation help. 4. Tobacco use As above. 5. Long-term use of immunosuppressant medication Check labs prior to next visit. Follow up in 4 months. Dhara Cheng MD 08/31/2022 8:16 documented in this encounter Plan of Treatment Upcoming Encounters Date Type Department Care Team (Late st Contact Info) Description 09/11/2024 8:00 EST Office Visit [facility] Rheumatology [address] [place] [address] Dhara Cheng MD [address] [facility] [place] [phone] documented as of this encounter Visit Diagnoses Diagnosis 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)- Primary Macrocytosis without anemia Other specified diseases of blood and blood-forming organs Essential hypertension Unspecified essential hypertension Tobacco use Tobacco use disorder Long-term use of immunosuppressant medication Encounter for long-term (current) use of other medications documented in this encounter Discontinued Medications Medication Sig Discontinue Reason Start Date End Da te Hydroquinone 4 % cream Apply twice daily to affected facial areas Therapy completed 05/17/2020 08/31/2022 documented as of this encounter Care Teams Uptwist Spinner Relationship Specialty Start Date End Date Chiquita Brooks NP PCP - General 09/29/14 documented as of this encounter
--- OUTSIDE RECORDS SUMMARY | 2024-04-21 21:01 | XMS_ITS | Encounter Summary ---
Author Organization [facility] Address [address] [place] [address] Care Team Providers Care Butter Melter Name Role Phone Todd Chiquita Leon NP Primary Care Provider [phone] Encounter Details Date Type Department Care Team (Late st Contact Info) Description 04/22/2020 Abstract [facility] Rheumatology [address] [place] [address] Dhara Cheng MD [address] [place] [phone] Social History Tobacco Use Types Packs/Day [...] Info) Description 09/11/2024 8:00 EST Office Visit [facility] Rheumatology [address] [place] [address] Dhara Cheng MD [address] [place] [phone] documented as of this encounter Procedures Procedure Name Priority Date/Time Associated Diagnosis Comments COMPLETE BLOOD COUNT AND DIFFERENTIAL Routine 04/16/2020 C REACTIVE PROTEIN Routine 04/16/2020 COMPREHENSIVE METABOLIC PANEL (CMP) Routine 04/16/2020 documented in this encounter Results * COMPREHENSIVE METABOLIC PANEL (CMP) (04/16/2020) Pathologist [facility] GFR, Calculated, External >60 Glucose, Serum, External 104 74 - 106 Albumin, External 3.7 3.4 - 5.0 Total Alkaline Phosphatase, External 102 46 - 116 ALT, External 26 16 - 63 AST, External 21 15 - 37 BUN, External 13 7 - 18 Calculated Calcium, External Calcium, External 9.0 8.5 - 10.1 Chloride, External 102 98 - 107 CO2, External 26.4 21.0 - 32.0 Creatinine, External 0.94 0.70 - 1.30 Fasting?, External Potassium, External 4.1 3.5 - 5.1 Sodium, External 139 136 - 145 Total Protein, External 7.0 6.4 - 8.2 Bilirubin, Total, External 0.2 0.2 - 1.0 Blood VENOUS BLOOD / Unknown 04/16/2020 Historical Provider CHEMISTRY & BLOOD GAS ORDERABLES * (ABNORMAL) C REACTIVE PROTEIN (04/16/2020) Pathologist [facility] C-Reactive Protein, External 0.32(A) 0.0 - 0.3 Blood VENOUS BLOOD / Unknown 04/16/2020 Historical Provider CHEMISTRY & BLOOD GAS ORDERABLES * (ABNORMAL) COMPLETE BLOOD COUNT AND DIFFERENTIAL (04/16/2020) Pathologist [facility] WBC, External 12.62(A) 4.4 - 10.8 RBC, External 4.14(A) 4.36 - 5.78 Hemoglobin, External 14.7 13.5 - 17.5 HCT, External 43.1 40.0 - 50.0 MCV, External 104.1(A) 80 - 95 MCH, External 35.5(A) 27.0 - 33.0 MCHC, External 34.1 32.0 - 36.0 PLT, External 350 130 - 400 RDW-CV, External 13.5 11.8 - 14.1 Neutrophils, External 60.6 Lymphocytes, External 28.1 Monocytes, External 6.8 Eosinophils, External 3.6 Basophils, External 0.7 ABS Neutrophils, External 7.65(A) 1.2 - 6.7 ABS Lymphs, External 3.55(A) 1.2 - 3.4 ABS Monocytes, External 0.86(A) 0.1 - 0.8 ABS Eosinophils, External 0.45 0.0 - 0.7 ABS Basophils, External 0.09 0.0 - 0.2 Blood VENOUS BLOOD / Unknown 04/16/2020 Historical Provider MD PACKAGES & DNA MI OBE ORDERABLES documented in this encounter Visit Diagnoses Not on filedocumented in this encounter Care Teams Butter Melter Relationship Specialty Start Date End Date Chiquita Brooks SPEED OPERATOR PCP - General 09/29/14 documented as of this encounter
--- OUTSIDE RECORDS SUMMARY | 2024-04-21 21:01 | XMS_ITS | Encounter Summary ---
Author Organization [facility] Address [address] [place] [address] Care Team Providers Care Sports Development Officer Name Role Phone RafiChiquita stringer BINDERY MANAGER Primary Care Provider [phone] Reason for Visit * Reason Onset Date Comments Medications Refill 03/05/2020 Received a fa xed refill request for MTX from [email or web address] Medications Refill 03/05/2020 Encounter Details Date Type Department Care Team (Late st Contact Info) Description 03/05/2020 Refill [facility] Rheumatology [address] [place] [address] Rosenda Appiah RN Medications Refill (Received a faxed refill request for MTX from [email or web address] in [facility]); Medications Refill Social History Tobacco Use Types [...] on file documented as of this encounter Ordered Prescriptions Prescription Sig Dispensed Refills Start Date End Da te methotrexate 2.5 mg tablet 6 tabs orally once a week 72 Tab 1 03/05/2020 09/13/2020 documented in this encounter Miscellaneous Notes * Telephone Encounter - Rosenda Appiah RN - 03/05/2020 1024 EDT Last visit note reviewed and labs up to date but follow up not scheduled. Due 04/19 or so so scheduled for 10:00 on 9/28 and patient sent a letter. documented in this encounter Plan of Treatment Upcoming Encounters Date Type Department Care Team (Late st Contact Info) Description 09/11/2024 8:00 EST Office Visit [facility] Rheumatology [address] [place], [place] [phone] Dhara Cheng MD [address] [facility] [address] [place] [phone] documented as of this encounter Visit Diagnoses Not on filedocumented in this encounter Discontinued Medications Medication Sig Discontinue Reason Start Date End Da te methotrexate 2.5 mg tablet 6 tabs orally once a week Reorder 10/23/2019 03/05/2020 documented as of this encounter Care Teams Sports Development Officer Relationship Specialty Start Date End Date Chiquita Brooks NP PCP - General 09/29/14 documented as of this encounter
--- OUTSIDE RECORDS SUMMARY | 2024-04-21 21:01 | XMS_ITS | Encounter Summary ---
Author Organization [facility] Address [address] [place] [address] Care Team Providers Care Solar System Installer Name Role Phone Chiquita Brooks NP Primary Care Provider [phone] Reason for Visit * Reason Comments Follow-up Seropositive rheumat oid arthritis Encounter Details Date Type Department Care Team (Latest Contact Info) Description 11/26/2023 8:00 EDT Office Visit [facility] Rheumatology [address] [place] [address] Dhara Cheng MD [address] [facility] [address] [place] [phone] 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) ([facility]) (Primary Dx); Essential hypertension; Macrocytosis without anemia; Tobacco use; Long-term use of immunosuppressant medication [...] Sign Reading Time Taken Comments Blood Pressure 122/70 11/26/2023 0805 EDT Pulse 62 11/26/2023 0805 EDT Temperature 36.6 ??C (97.9 ??F) 11/26/2023 0805 EDT Respiratory Rate - - Oxygen Saturation 97% 11/26/2023804 EDT Inhaled Oxygen Concentration - - Weight 82.3 kg (181 lb 8 oz) 11/26/2023804 EDT Height 172.7 cm (5' 8) 11/26/2023804 EDT Body Mass Index 27.6 11/26/2023804 EDT documented in this encounter Functional Status [...] * Patient Instructions* Dhara Cheng MD - 11/26/2023 8:00 EDT No changes Labs prior to next visit documented in this encounter Progress Notes * Dhara Cheng MD - 11/26/2023 0800 EDT [facility] Rheumatology Chief Complaint Patient presents with Follow-up Seropositive rheumatoid arthritis HPI: Seropositive RA. Ponce has signs and [...] visit. Today, Ponce says he is feeling well today. Ponce says he has made some changes -- quit his very physical job and is now caring for his dad who has dementia. Ponce says his arthritis seems to be lessactive since quitting his job. Says flare ups are brief -- says right knee bothered him last gissell but is better today. Rarely takes APAP or ibuprofen for pain. I have reviewed the patient's problem list and have reconciled their medication list. Social History: Still smoking just over a pack per day. Hasn't been able to cut down. Planning a trip to [place] in February. Review of Systems: Denies shortness of breath, chest pain. Has lost 14 pounds since eating better (used to drink soda at work and other junk food). 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 Follows with Dr Carreon annually -- last visit 06/28/23; note reviewed by me. Eye exam for Plaquenil monitoring was done, 07/05/23, [facility]; no Plaquenil toxicity noted. Physical Examination: BP 122/70 (BP Cuff Location: Left arm, BP Patient Position: Sitting, BP Cuff Sizes: Adult, regular) Pulse 62 Temp 36.6 ??C (97.9 ??F) Ht 172.7 cm (68) Wt 82.3 kg (181 lb 8 oz) SpO2 97% BMI 27.60 kg/m?? EYES: Conjunctivae not injected. NECK: No lymphadenopathy. LUNGS: Clear to auscultation bilaterally. CARDIOVASCULAR: Regular rate and rhythm. No murmur. No peripheral edema. JOINT EXAM: No synovitis of finger or toe joints; full [...] No obvious skin lesions on exam today. Subcutaneous nodule right 5th MCPs, non-tender. Labs: Phlebotomy Only on 11/26/2023 Component Date Value Ref Range Status WBC 11/26/2023 9.14 4.00 - 10.40 K/cmm Final RBC 11/26/2023 4.26 (L) 4.36 - 5.78 M/cmm Final Hemoglobin 11/26/2023 14.8 13.8 - 17.3 g/dL Final HCT 11/26/2023 43.6 39.5 - 50.2 % Final MCV 11/26/2023 102 (H) 81 - 95 fL Final MCH 11/26/2023 34.7 (H) 27.6 - 33.0 pg Final MCHC 11/26/2023 33.9 32.8 - 36.4 g/dL Final RDW-CV 11/26/2023 13.3 <14.2 % Final RDW-SD 11/26/2023 50.0 (H) <46.0 fl Final PLT 11/26/2023 351 141 - 377 K/cmm Final MPV 11/26/2023 9.4 (L) 9.5 - 12.7 fL Final % Neutrophils 11/26/2023 68.2 % Final % Lymphocytes 11/26/2023 19.9 % Final % Monocytes 11/26/2023 7.4 % Final % Eosinophils 11/26/2023 3.4 % Final % Basophils 11/26/2023 0.8 % Final % Immature Grans 11/26/2023 0.3 % Final Absolute Neutrophils 11/26/2023 6.23 2.20 - 8.85 K/cmm Final Absolute Lymphocytes 11/26/2023 1.82 1.09 - 3.30 K/cmm Final Absolute Monocytes 11/26/2023 0.68 0.10 - 0.80 K/cmm Final Absolute Eosinophils 11/26/2023 0.31 0.03 - 0.61 K/cmm Final ABS Basophils 11/26/2023 0.07 0.01 - 0.11 K/cmm Final Absolute Immature Grans 11/26/2023 0.03 0.00 - 0.06 K/cmm Final Type of Differential: 11/26/2023 Auto Final Sodium 11/26/2023 142 136 - 145 mmol/L Final Potassium 11/26/2023 4.0 3.5 - 5.0 mmol/L Final Chloride 11/26/2023 110 96 - 110 mmol/L Final CO2 Total 11/26/2023 24 22 - 32 mmol/L Final Glucose 11/26/2023 105 (H) 70 - 99 mg/dl Final BUN 11/26/2023 15 10 - 26 mg/dL Final Creatinine 11/26/2023 0.78 0.66 - 1.25 mg/dL Final eGFR 11/26/2023 106 >60 mL/min/1.73m2 Final Total Protein 11/26/2023 6.6 6.3 - 8.2 g/dL Final Albumin 11/26/2023 3.9 3.4 - 4.9 g/dL Final Alkaline Phosphatase 11/26/2023 78 38 - 126 U/L Final AST 11/26/2023 26 15 - 46 U/L Final ALT 11/26/2023 21 <50 U/L Final Bilirubin, Total 11/26/2023 0.5 <1.4 mg/dL Final Calcium 11/26/2023 9.3 8.5 - 10.5 mg/dL Final Albumin/Globulin Ratio 11/26/2023 1.4 1.0 - 2.5 Final Anion Gap 11/26/2023 8 5 - 14 mmol/L Final C-Reactive Protein 11/26/2023 <5.0 <10.0 mg/L Final Labs not fasting Assessment and Plan: 1. 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) ([facility]) 08/31/2022 8:09 01/01/2023 8:33 11/26/2023 8:05 RAPID3 SCORES AND INTERPRETATION Functional Status 0 0.3 0 Pain Tolerance 1.5 2 0 - No Pain Global Estimate 0.5 1.5 0 - Very Well RAPID3 2 3.8 0 Interpretation Near Remission Low Near Remission Doing well on current therapy. Reduction in flare ups since quitting a very physically demanding job. Continue methotrexate 15 mg/week. Continue folic acid 1 mg daily. Continue hydroxychloroquine 200 mg daily. Up-to-date on eye exam for hydroxychloroquine monitoring. 2. Essential hypertension BP has been episodically increased in the office. Risk factors of tobacco use and rheumatoid arthritis. Current BP is much improved and is within normal range. Will continue to monitor. 3. Macrocytosis without anemia Stable, likely from methotrexate. 4. Tobacco use Ponce continues to want to cut down on tobacco use. 6. Long-term use of immunosuppressant medication No sign of adverse effects of DMARD therapy. Check labs prior to next visit. Follow up in 4 months. 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
--- OUTSIDE RECORDS SUMMARY | 2024-04-21 21:01 | XMS_ITS | Encounter Summary ---
Author Organization [facility] Address [address] [place] [address] Care Team Providers Care Syrup Filterer Name Role Phone Rafimattnery Chiquita Leon MANAGER HUMAN RESOURCES Primary Care Provider [phone] Reason for Visit * Reason Comments Follow-up RA- -Pt states sympt oms minimal. Hand knuckles and wrists are most problematic. Encounter Details Date Type Department Care Team (Latest Contact Info) Description 05/23/2021 8:00 EDT Office Visit [facility] Rheumatology [address] [place] [address] Dhara Cheng MD [address] [facility] [address] [place] [address] Seropositive rheumatoid arthritis (HCC-CMS) ([facility]) (Primary Dx); Macrocytosis without anemia; Long-term use of immunosuppressant medication Social History [...] Sign Reading Time Taken Comments Blood Pressure 136/88 05/23/2021 0808 EDT Pulse 73 05/23/2021 0808 EDT Temperature 36.6 ??C (97.8 ??F) 05/23/2021 0808 EDT Respiratory Rate - - Oxygen Saturation - - Inhaled Oxygen Concentration - - Weight 85.3 kg (188 lb) 05/23/2021 0808 EDT Height 172.7 cm (5' 8) 05/23/2021 0808 EDT Body Mass Index 28.59 05/23/2021 0808 EDT documented in this encounter Functional Status [...] * Patient Instructions* Dhara Cheng MD - 05/23/2021 8:00 EDT Consider Moderna booster at the end of this month Labs prior to next visit documented in this encounter Progress Notes * Dhara Cheng MD - 05/23/2021 0800 EDT [facility] Rheumatology Chief Complaint Patient presents with ??? Follow-up RA- -Pt states symptoms minimal. Hand knuckles and wrists are most problematic. HPI: Seropositive RA. Ponce has signs and [...] last visit. Ponce says he is doing well and that RA symptoms are minimal. Ponce says that he has an occasional brief flareup in his hands and wrists. Shoulder discomfort appears related to activity per Ponce. Occasionallytakes APAP for pain. Current Outpatient Medications Medication ??? folic acid (FOLVITE) 1 mg tablet ??? Hydroquinone 4 % cream ??? hydrOXYchloroQUINE (PLAQUENIL) 200 mg tablet ??? methotrexate 2.5 mg tablet ??? valACYclovir (VALTREX) 500 mg tablet No current facility-administered medications for this visit. Allergies include: Patient has no known allergies. Patient Active Problem List Diagnosis ??? Seropositive rheumatoid arthritis (HCC-CMS) (HCC) ??? Macrocytosis without anemia ??? Lymphomatoid papulosis, type A (HCC) ??? Long-term use of immunosuppressant medication Family History Problem Relation Age of Onset ??? Rheumatologic Disease Mother Social History: Smoking just over a pack per day. This is unchanged. Review of Systems: Denies shortness of breath, chest pain. Lymphomatoid papulosis stable. Follows with Dr Carreon and saw him last week. No issues. Had eye exam last week, [facility]; no issues. Says weight is stable. Had two doses of Covid vaccine. Hasn't had booster dose. Physical Examination: There were no vitals taken for this visit. EYES: Conjunctivae not injected. NECK: No lymphadenopathy. [...] lesions on exam today. Labs: Abstract on 05/18/2021 Component Date Value Ref Range Status ??? C-Reactive Protein, External 05/17/2021 0.13 0.0 - 0.3 mg/dL Final ? ? GFR, Calculated, External 05/17/2021 >60 60 Final ??? Glucose, Serum, External 05/17/2021 114* 74 - 106 Final ??? Albumin, External 05/17/2021 4.0 3.4 - 5.0 Final ??? Total Alkaline Phosphatase, Machine Cell Tuber* 05/17/2021 99 46 - 116 Final ??? ALT, External 05/17/2021 28 16 - 63 Final ??? AST, External 05/17/2021 18 15 - 37 Final ??? BUN, External 05/17/2021 13 7 - 18 Final ??? Calcium, External 05/17/2021 9.5 8.5 - 10.1 Final ??? Chloride, External 05/17/2021 105 98 - 107 Final ??? CO2, External 05/17/2021 26.8 21.0 - 32.0 Final ??? Creatinine, External 05/17/2021 0.8 0.70 - 1.30 Final ??? Potassium, External 05/17/2021 4.4 3.5 - 5.1 Final ??? Sodium, External 05/17/2021 143 136 - 145 Final ??? Total Protein, External 05/17/2021 7.2 6.4 - 8.2 Final ??? Bilirubin, Total, External 05/17/2021 0.4 0.2 - 1.0 Final ??? WBC, External 05/17/2021 9.46 4.4 - 10.8 Final ??? RBC, External 05/17/2021 4.49 4.36 - 5.78 Final ??? Hemoglobin, External 05/17/2021 15.5 13.5 - 17.5 Final ??? HCT, External 05/17/2021 46.2 40.0 - 50.0 Final ??? MCV, External 05/17/2021 102.9* 80 - 95 Final ??? MCH, External 05/17/2021 34.5* 27.0 - 33.0 Final ??? MCHC, External 05/17/2021 33.5 32.0 - 36.0 Final ??? PLT, External 05/17/2021 362 130 - 400 Final ??? RDW-CV, External 05/17/2021 13.2 11.8 - 14.1 Final ??? Neutrophils, External 05/17/2021 59.0 Final ??? Lymphocytes, External 05/17/2021 29.0 Final ??? Monocytes, External 05/17/2021 8.1 Final ??? Eosinophils, External 05/17/2021 2.9 Final ??? Basophils, External 05/17/2021 0.7 Final ??? ABS Neutrophils, External 05/17/2021 5.58 1.2 - 6.7 Final ??? ABS Lymphs, External 05/17/2021 2.74 1.2 - 3.4 Final ??? ABS Monocytes, External 05/17/2021 0.77 0.1 - 0.8 Final ??? ABS Eosinophils, External 05/17/2021 0.27 0.0 - 0.7 Final ??? ABS Basophils, External 05/17/2021 0.07 0.0 - 0.2 Final Assessment and Plan: 1. Seropositive rheumatoid arthritis (HCC-CMS) Low to no RA disease activity based on joint exam, history and lab results. 2. Macrocytosis without anemia Stable. 3. Long-term use of immunosuppressant medication Check labs prior to next visit. Discussed Covid vaccine booster and recommend that Ponce receive this at the end of this month. Ideally best to receive the vaccine on the day Ponce takes methotrexate and to skip the methotrexate dose for one week. Follow up in 5 months. Dhara Cheng MD 05/23/2021 8:08 documented in this encounter Plan of Treatment Upcoming Encounters Date Type Department Care Team (Late st Contact Info) Description 09/11/2024 8:00 EST Office Visit [facility] Rheumatology [address] [place] [id number] Dhara Cheng MD [address] [place] [address] [address] [place] [phone] documented as of this encounter Visit Diagnoses Diagnosis Seropositive rheumatoid arthritis (HCC-CMS)- Primary Rheumatoid arthritis Macrocytosis without anemia Other specified diseases of blood and blood-forming organs Long-term use of immunosuppressant medication Encounter for long-term (current) use of other medications documented in this encounter Care Teams Syrup Filterer Relationship Specialty Start Date End Date Chiquita Brooks NP PCP - General 09/29/14 documented as of this encounter
--- OUTSIDE RECORDS SUMMARY | 2024-04-21 21:01 | XMS_ITS | Encounter Summary ---
Author Organization [facility] Address [address] [place] [address] Care Team Providers Care Papier Mache' Molder Name Role Phone RafiChiquita stringer NP Primary Care Provider [phone] Encounter Details Date Type Department Care Team (Late st Contact Info) Description 08/15/2022 Orders Only [facility] Rheumatology [address] [place] [address] [id number] Eve Catherine RN 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) (Primary Dx); High risk medication use Social [...] No 08/23/2020 documented as of this encounter Progress Notes * Eve Catherine, RN - 08/15/2022 1128 EST DMARD standing lab orders renewed. documented in this encounter Plan of Treatment Upcoming Encounters Date Type Department Care Team (Late st Contact Info) Description 09/11/2024 8:00 EST Office Visit [facility] Rheumatology [address] [place] [address] Dhara Cheng MD [address] [facility] [address] [place] [address] documented as of this encounter Visit Diagnoses Diagnosis 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)- Primary High risk medication use Encounter for long-term (current) use of other medications documented in this encounter Care Teams Papier Mache' Molder Relationship Specialty Start Date End Date Chiquita Brooks NP PCP - General 09/29/14 documented as of this encounter
--- OUTSIDE RECORDS SUMMARY | 2024-04-21 21:01 | XMS_ITS | Encounter Summary ---
Author Organization [facility] Address [address] [place] [address] Care Team Providers Care Business Development Analyst Name Role Phone Chiquita Brooks NP Primary Care Provider [phone] Reason for Visit * Reason Comments Follow-up SPRA; left wrist is a little painful and swollen. Encounter Details Date Type Department Care Team (Latest Contact Info) Description 10/27/2021 8:00 EDT Office Visit [facility] Rheumatology [address] [place] [address] Dhara Cheng MD [address] [facility] [address] [place] [address] Seropositive rheumatoid arthritis (HCC-CMS) (HCC) (Primary Dx); Macrocytosis without anemia; Lymphomatoid papulosis, type A (HCC) (HCC-CMS); Primary hypertension; Long-term use of immunosuppressant medication Social History [...] Sign Reading Time Taken Comments Blood Pressure 152/92 10/27/2021 0812 EDT Pulse 64 10/27/2021 0812 EDT Temperature 35.9 ??C (96.6 ??F) 10/27/2021 0812 EDT Respiratory Rate - - Oxygen Saturation - - Inhaled Oxygen Concentration - - Weight 87.2 kg (192 lb 5.6 oz) 10/27/2021 0812 E DT Height 172.7 cm (5' 8) 10/27/2021 0812 EDT Body Mass Index 29.25 10/27/2021 0812 EDT documented in this encounter Functional Status [...] * Patient Instructions* Dhara Cheng MD - 10/27/2021 8:00 EDT Recommend Covid booster Recommend PCP visit for health maintenance -- colonoscopy, cholesterol check, vaccines, etc Monitor blood pressure and share with PCP Labs today and prior to next visit Smoking cessation documented in this encounter Progress Notes * Dhara Cheng MD - 10/27/2021 0800 EDT [facility] Rheumatology Chief Complaint Patient presents with ??? Follow-up SPRA; left wrist is a little painful and swollen. HPI: Seropositive RA. Ponce has signs and [...] visit. Ponce says he is doing well overall. Ponce says that he has an occasional brief flareup in his hands and wrists. Today, he says his left wrist is bothering him, and a little swollen. He says this happens on occasion, usually lasting a day or two. 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 Occasionally takes APAP for pain. Ponce also had a tooth extraction a few months ago and will be having an implant done. Current Outpatient Medications Medication ??? folic acid (FOLVITE) 1 mg tablet ??? Hydroquinone 4 % cream ??? hydrOXYchloroQUINE (PLAQUENIL) 200 mg tablet ??? methotrexate 2.5 mg tablet ??? valACYclovir (VALTREX) 500 mg tablet No current facility-administered medications for this visit. Allergies include: Patient has no known allergies. Patient Active Problem List Diagnosis ??? Seropositive rheumatoid arthritis (HCC-CMS) ([facility]) ??? Macrocytosis without anemia ??? Lymphomatoid papulosis, type A (HCC) ??? Long-term use of immunosuppressant medication ??? Anogenital herpesviral infection, unspecified Family History Problem Relation Age of Onset ??? Rheumatologic Disease Mother Social History: Still smoking just over a pack per day. Review of Systems: Denies shortness of breath, chest pain. Ponce mentions his feet get numb/tingling at times when he is working on an incline in the [employer] Lymphomatoid papulosis stable -- definitely improved control with methotrexate. Follows with Dr Carreon annually. Eye exam, 05/17/21, [facility], Plaquenil monitoring; no toxicity. Says weight is stable. Had two doses of Covid vaccine. Hasn't had booster dose yet. Physical Examination: BP (!) 152/92 Pulse 64 Temp 35.9 ??C (96.6 ??F) Ht 172.7 cm (68) Wt 87.2 kg (192 lb 5.6 oz) BMI 29.25 kg/m?? EYES: Conjunctivae not injected. NECK: No lymphadenopathy. LUNGS: Clear to auscultation bilaterally. CARDIOVASCULAR: Regular rate and rhythm. No murmur. No peripheral edema. JOINT EXAM: ??No synovitis of finger or toe joints; full passive painless flexion of digits. Left wrist mildly swollen at radial aspect with reduction in flexion with discomfort. Mild reduction in bilateral shoulder internal and external rotation, chronic. Mild bilateral flexion contractures of elbows, chronic. Reduction in external rotation of right more than left hip, without groin pain. Knee flexion is full, no discomfort. SKIN: No obvious skin lesions on exam today. PULSE: DP/PT pulses not palpable; feet are warm. Labs: Phlebotomy Only on 10/27/2021 Component Date Value Ref Range Status ??? Sodium 10/27/2021 143 136 - 145 mmol/L Final ??? Potassium 10/27/2021 4.6 3.5 - 5.0 mmol/L Final ??? Chloride 10/27/2021 105 96 - 110 mmol/L Final ??? CO2 Total 10/27/2021 26 22 - 32 mmol/L Final ??? Glucose 10/27/2021 86 70 - 100 mg/dL Final ??? BUN 10/27/2021 14 10 - 26 mg/dL Final ??? Creatinine 10/27/2021 0.78 0.66 - 1.25 mg/dL Final ? ? eGFR 10/27/2021 107 >60 mL/min/1.73m2 Final ??? Total Protein 10/27/2021 7.1 6.3 - 8.2 g/dL Final ??? Albumin 10/27/2021 4.1 3.4 - 4.9 g/dL Final ??? Alkaline Phosphatase 10/27/2021 86 38 - 126 U/L Final ??? AST 10/27/2021 26 15 - 46 U/L Final ? ? ALT 10/27/2021 17 <50 U/L Final ? ? Bilirubin, Total 10/27/2021 0.3 <1.4 mg/dL Final ??? Calcium 10/27/2021 9.2 8.5 - 10.5 mg/dL Final ??? Albumin/Globulin Ratio 10/27/2021 1.4 1.0 - 2.5 Final ??? Anion Gap 10/27/2021 12 5 - 14 Final ??? WBC 10/27/2021 10.38 4.00 - 10.40 K/cmm Final ??? RBC 10/27/2021 4.17 (A) 4.36 - 5.78 M/cmm Final ??? Hemoglobin 10/27/2021 14.8 13.8 - 17.3 gm/dL Final ??? HCT 10/27/2021 43.1 39.5 - 50.2 % Final ??? MCV 10/27/2021 103 (A) 81 - 95 fl Final ??? MCH 10/27/2021 35.5 (A) 27.6 - 33.0 pg Final ??? MCHC 10/27/2021 34.3 32.8 - 36.4 gm/dL Final ? ? RDW-CV 10/27/2021 13.6 <14.2 % Final ? ? RDW-SD 10/27/2021 51.3 (A) <46.0 fl Final ??? PLT 10/27/2021 353 141 - 377 K/cmm Final ??? MPV 10/27/2021 9.4 (A) 9.5 - 12.7 fl Final ??? Neutrophils 10/27/2021 62.7 % Final ??? Lymphocytes 10/27/2021 22.4 % Final ??? Monocytes 10/27/2021 10.6 % Final ??? Eosinophils 10/27/2021 2.9 % Final ??? Basophils 10/27/2021 0.9 % Final ??? Immature Grans 10/27/2021 0.5 % Final ??? Absolute Neutrophils 10/27/2021 6.52 2.20 - 8.85 K/cmm Final ??? Absolute Lymphocytes 10/27/2021 2.32 1.09 - 3.30 K/cmm Final ??? Absolute Monocytes 10/27/2021 1.10 (A) 0.10 - 0.80 K/cmm Final ??? Absolute Eosinophils 10/27/2021 0.30 0.03 - 0.61 K/cmm Final ??? Absolute Basophils 10/27/2021 0.09 0.01 - 0.11 K/cmm Final ??? Absolute Immature Grans 10/27/2021 0.05 0.00 - 0.06 K/cmm Final ??? Type of Differential: 10/27/2021 Auto Final ? ? C-Reactive Protein 10/27/2021 7.0 <10.0 mg/L Final Assessment and Plan: 1. Seropositive rheumatoid arthritis (HCC-CMS) (HCC) Low rheumatoid arthritis disease activity based on history, exam, and labs. 2. Macrocytosis without anemia This is stable. 3. Lymphomatoid papulosis, type A (HCC) Controlled on methotrexate. 4. Primary hypertension I've asked Ponce to check his BP at home. Discussed he is at risk for cardiovascular disease due torheumatoid arthritis, in addition to tobacco history. Discussed importance of following up with hisPCP for health maintenance -- he is due for screening colonoscopy as well. 5. Long-term use of immunosuppressant medication Check labs prior to next visit. Discussed Covid vaccine booster and recommend that Ponce receive this. Follow up in 5 months. Dhara Cheng MD 10/27/2021 8:16 documented in this encounter Plan of Treatment Upcoming Encounters Date Type Department Care Team (Late st Contact Info) Description 09/11/2024 8:00 EST Office Visit [facility] Rheumatology [address] [place] [id number] Dhara Cheng MD [address] [place] [address] [place] [phone] documented as of this encounter Visit Diagnoses Diagnosis Seropositive rheumatoid arthritis ([facility])- Primary Rheumatoid arthritis Macrocytosis without anemia Other specified diseases of blood and blood-forming organs Lymphomatoid papulosis, type A Other specified disorder of skin Primary hypertension Unspecified essential hypertension Long-term use of immunosuppressant medication Encounter for long-term (current) use of other medications documented in this encounter Care Teams Business Development Analyst Relationship Specialty Start Date End Date Chiquita Brooks NP PCP - General 09/29/14 documented as of this encounter
--- OUTSIDE RECORDS SUMMARY | 2024-04-21 21:01 | XMS_ITS | Encounter Summary ---
Author Organization [facility] Address [address] [place] [address] Care Team Providers Care Registered Nurse Practitioner Name Role Phone RafiChiquita stringer NP Primary Care Provider [phone] Reason for Visit * Reason Comments Other Encounter Details Date Type Department Care Team (Late st Contact Info) Description 03/18/2021 Refill [facility] Rheumatology [address] [place] [address] Dhara Cheng MD [address] [place] [address] [place] [address] Other Social History Tobacco Use [...] End Da te methotrexate 2.5 mg tablet TAKE 6 TABLETS BY MOUTH EVERY WEEK 72 Tablet 1 03/21/2021 09/12/2021 documented in this encounter Miscellaneous Notes * Telephone Encounter - Eve Catherine, RN - 03/21/2021 1053 EDT Last visit note reviewed and follow up scheduled for 05/23/21. DMARD labs last done 01/03/21. Refill sent as noted. documented in this encounter Plan of Treatment Upcoming Encounters Date Type Department Care Team (Late st Contact Info) Description 09/11/2024 8:00 EST Office Visit [facility] Rheumatology [address] [place], [place] [address] Dhara Cheng MD [address] [facility] [address] [place] [phone] documented as of this encounter Visit Diagnoses Not on filedocumented in this encounter Discontinued Medications Medication Sig Discontinue Reason Start Date End Da te methotrexate 2.5 mg tablet TAKE 6 TABLETS BY MOUTH EVERY WEEK 09/13/2020 03/21/2021 documented as of this encounter Care Teams Registered Nurse Practitioner Relationship Specialty Start Date End Date Chiquita Brooks NP PCP - General 09/29/14 documented as of this encounter
--- OUTSIDE RECORDS SUMMARY | 2024-04-21 21:01 | XMS_ITS | Encounter Summary ---
Author Organization [facility] Address [address] [place] [address] Care Team Providers Care Product Representative Name Role Phone Chiquita Brooks NP Primary Care Provider [phone] Reason for Visit * Reason Onset Date Comments Medications Refill 12/17/2020 Encounter Details Date Type Department Care Team (Late st Contact Info) Description 12/17/2020 Refill [facility] Rheumatology [address] [place] [address] Paola Malave RN Medications Refill Social History Tobacco Use Types [...] tablet 1 tab(s) orally once a day 90 Tab 3 12/17/2020 12/14/2021 documented in this encounter Miscellaneous Notes * Telephone Encounter - Paola Malave RN - 12/17/2020 1346 EDT Visits utd documented in this encounter Plan of Treatment Upcoming Encounters Date Type Department Care Team (Late st Contact Info) Description 09/11/2024 8:00 EST Office Visit [facility] Rheumatology [address] [place], [place] [address] Dhara Cheng MD 130 [facility] [address] [place] [address] documented as of this encounter Visit Diagnoses Not on filedocumented in this encounter Discontinued Medications Medication Sig Discontinue Reason Start Date End Da te folic acid (FOLVITE) 1 mg tablet 1 tab(s) orally once a day Reorder 11/24/2019 12/17/2020 documented as of this encounter Care Teams Product Representative Relationship Specialty Start Date End Date Chiquita Brooks NP PCP - General 09/29/14 documented as of this encounter
--- OUTSIDE RECORDS SUMMARY | 2024-04-21 21:01 | XMS_ITS | Encounter Summary ---
Author Organization [facility] Address [address] [place] [address] Care Team Providers Care Ultrasound Specialist Name Role Phone Todd Chiquita Leon NP Primary Care Provider [phone] Encounter Details Date Type Department Care Team (Late st Contact Info) Description 05/10/2021 Orders Only [facility] Rheumatology [address] [place] [address] Rosenda Appiah RN Seropositive rheumatoid arthritis of multiple sites ([facility]) ([facility]) (Primary Dx); High risk medication use Social [...] Info) Description 09/11/2024 8:00 EST Office Visit [facility] Rheumatology [address] [place] [address] Dhara Cheng MD [address] [facility] [address] [place] [phone] documented as of this encounter Visit Diagnoses Diagnosis Seropositive rheumatoid arthritis of multiple sites ([facility])- Primary High risk medication use Encounter for long-term (current) use of other medications documented in this encounter Care Teams Ultrasound Specialist Relationship Specialty Start Date End Date Chiquita Brooks NP PCP - General 09/29/14 documented as of this encounter
--- OUTSIDE RECORDS SUMMARY | 2024-04-21 21:01 | XMS_ITS | Encounter Summary ---
Author Organization [facility] Address [address] [place] [address] Care Team Providers Care Emergency Vehicle Operator Name Role Phone Chiquita Brooks NP Primary Care Provider [phone] Reason for Visit * Reason Onset Date Comments Appointment Related 07/10/2023 Encounter Details Date Type Department Care Team (Late st Contact Info) Description 07/10/2023 Telephone [facility] [address] [place] [address] Dhara Cheng MD [address] [place] [address] [address] [place] [address] Appointment Related Social History Tobacco Use Types Packs/Day Years [...] encounter Miscellaneous Notes * Telephone Encounter - Colette Hastings - 07/10/2023 0711 EST PAS Message: Pt called to cancel appt for 07/10 at 8:30am with dr cheng due to schedule. Would like a call back to reschedule documented in this encounter Plan of Treatment Upcoming Encounters Date Type Department Care Team (Late st Contact Info) Description 09/11/2024 8:00 EST Office Visit [facility] Rheumatology [address] [place] [address] Dhara Cheng MD 130 [facility] [address] [place] [address] documented as of this encounter Visit Diagnoses Not on filedocumented in this encounter Care Teams Emergency Vehicle Operator Relationship Specialty Start Date End Date Chiquita Brooks NP PCP - General 09/29/14 documented as of this encounter
--- OUTSIDE RECORDS SUMMARY | 2024-04-21 21:01 | XMS_ITS | Encounter Summary ---
Author Organization [facility] Address [address] [place] [address] Care Team Providers Care Reports Developer Name Role Phone Chiquita Brooks NP Primary Care Provider [phone] Reason for Visit * Laboratory Services (Routine/Next Available) - Order Cancelled Specialty Diagnoses / Procedures Referred By Contac t Referred To Contact Diagnoses Seropositive rheumatoid arthritis of multiple sites ([facility]) High risk medication use Procedures COMPREHENSIVE METABOLIC PANEL (CMP) Dhara Cheng MD [address] [facility] [address] [place] [address] Referral ID Status Reason Start Date Expiration Date V isits Requested Visits Authorized [id number] Order Cancelled 05/10/2021 6 6 Encounter Details Date Type Department Care Team (Late st Contact Info) Description 03/29/2022 7:55 EDT Phlebotomy Only [facility] - Outpatient Phlebotomy Drawing [address] [place] [address] Lab, [facility] Op Phlebotomy Seropositive rheumatoid arthritis of multiple sites ([facility]) ([facility]); High risk medication use Social History Tobacco [...] No 08/23/2020 Cognitive Status Response Date of Assess ent Because of a physical, menta l, or emotional condition, does this person have serious difficulty concentrating, remembering, or making decisions? No 08/23/2020 documented as of this encounter Plan of Treatment Upcoming Encounters Date Type Department Care Team (Late st Contact Info) Description 09/11/2024 8:00 EST Office Visit [facility] Rheumatology [address] [place] [address] Dhara Cheng MD [address] [facility] [address] [place] [address] documented as of this encounter Procedures Procedure Name Priority Date/Time Associated Diagnosis Comments COMPLETE BLOOD COUNT AND DIFFERENTIAL Routine 03/29/2022 7:57 EDT Seropositive rheumatoid arthritis of multiple sites ([facility]) ([facility]) High risk medication use C REACTIVE PROTEIN Routine 03/29/2022 7: 57 EDT Seropositive rheumatoid arthritis of multiple sites ([facility]) ([facility]) High risk medication use COMPREHENSIVE METABOLIC PANEL (CMP) Routine 03/29/2022 7:57 EDT Seropositive rheumatoid arthritis of multiple sites ([facility]) ([facility]) High risk medication use documented in this encounter Results * C REACTIVE PROTEIN (03/29/2022 7:57 EDT) C-Reactive Protein <5.0 <10.0 mg/L 03/29/2022 9:27 EDT [facility] Blood VENOUS BLOOD / Unknown Venipuncture / Unknown 03/29/2022 7:57 EDT 03/29/2022 8:46 EDT Dhara Cheng MD CHEMISTRY & BLOOD GA S ORDERABLES [facility] [address] [place] [id number] * (ABNORMAL) COMPLETE BLOOD COUNT AND DIFFERENTIAL (03/29/2022 7:57 EDT) WBC 12.53(H) 4.00 - 10.40 K/cmm 03/29/2022 9:17 [facility] RBC 4.43 4.36 - 5.78 M/cmm 03/29/2022 9:17 [facility] Hemoglobin 15.7 13.8 - 17.3 gm/dL 03/29/2022 9:17 [facility] HCT 45.3 39.5 - 50.2 % 03/29/2022 9:17 [facility] MCV 102(H) 81 - 95 fl 03/29/2022 9:17 [facility] MCH 35.4(H) 27.6 - 33.0 pg 03/29/2022 9:17 [facility] MCHC 34.7 32.8 - 36.4 gm/dL 03/29/2022 9:17 [facility] RDW-CV 13.4 <14.2 % 03/29/2022 9:17 [facility] RDW-SD 50.5(H) <46.0 fl 03/29/2022 9:17 [facility] PLT 368 141 - 377 K/cmm 03/29/2022 9:17 [facility] MPV 9.5 9.5 - 12.7 fl 03/29/2022 9:17 [facility] % Neutrophils 66.2 % 03/29/2022 9:17 [facility] % Lymphocytes 20.6 % 03/29/2022 9:17 [facility] % Monocytes 8.9 % 03/29/2022 9:17 [facility] % Eosinophils 3.1 % 03/29/2022 9:17 [facility] % Basophils 0.8 % 03/29/2022 9:17 [facility] % Immature Grans 0.4 % 03/29/20 9:17 [facility] Absolute Neutrophils 8.29 2.20 - 8.85 K/cmm 03/29/2022 9:17 [facility] Absolute Lymphocytes 2.58 1.09 - 3.30 K/cmm 03/29/2022 9:17 [facility] Absolute Monocytes 1.12(H) 0.10 - 0.80 K/cmm 03/29/2022 9:17 [facility] Absolute Eosinophils 0.39 0.03 - 0.61 K/cmm 03/29/2022 9:17 [facility] ABS Basophils 0.10 0.01 - 0.11 K/cmm 03/29/2022 9:17 [facility] Absolute Immature Grans 0.05 0.00 - 0.06 K/cmm 03/29/2022 9:17 [facility] Type of Differential: Auto 03/29/2022 9:17 [facility] Blood VENOUS BLOOD / Unknown Venipuncture / Unknown 03/29/2022 7:57 EDT 03/29/2022 9:14 EDT Dhara Cheng MD PACKAGES & DNA PROBE ORDERABLES Performing Organization Address City/State/[facility] Co de Phone Number [facility] [address] [place] [address] * COMPREHENSIVE METABOLIC PANEL (CMP) (03/29/2022 7:57 EDT) Sodium 142 136 - 145 mmol/L 03/29/2022 9:27 [facility] Potassium 4.5 3.5 - 5.0 mmol/L 03/29/2022 9:27 [facility] Chloride 106 96 - 110 mmol/L 03/29/2022 9:27 [facility] CO2 Total 25 22 - 32 mmol/L 03/29/2022 9:27 [facility] Glucose 87 70 - 100 mg/dL 03/29/2022 9:27 [facility] BUN 11 10 - 26 mg/dL 03/29/2022 9:27 [facility] Creatinine 0.70 0.66 - 1.25 mg/dL 03/29/2022 9:27 [facility] eGFR 110 >60 mL/min/1.7 3m2 03/29/2022 9:27 [facility] Total Protein 7.4 6.3 - 8.2 g/dL 03/29/2022 9:27 [facility] Albumin 4.5 3.4 - 4.9 g/dL 03/29/2022 9:27 [facility] Alkaline Phosphatase 94 38 - 126 U/L 03/29/2022 9:27 [facility] AST 26 15 - 46 U/L 03/29/2022 9:27 [facility] ALT 18 <50 U/L 03/29/2022 9:27 [facility] Bilirubin, Total 0.4 <1.4 mg/dL 03/29/20 9:27 [facility] Calcium 9.4 8.5 - 10.5 mg/dL 03/29/2022 9:27 [facility] Albumin/Globulin Ratio 1.6 1.0 - 2.5 03/29/2022 9:27 [facility] Anion Gap 11 5 - 14 03/29/2022 9:27 [facility] Blood VENOUS BLOOD / Unknown Venipuncture / Unknown 03/29/2022 7:57 EDT 03/29/2022 8:46 EDT Dhara Cheng MD CHEMISTRY & BLOOD GA S ORDERABLES [facility] [address] [place] [address] documented in this encounter Visit Diagnoses Diagnosis Seropositive rheumatoid arthritis of multiple sites ([facility]) High risk medication use Encounter for long-term (current) use of other medications documented in this encounter Care Teams Reports Developer Relationship Specialty Start Date End Date Chiquita Brooks NP PCP - General 09/29/14 documented as of this encounter
--- OUTSIDE RECORDS SUMMARY | 2024-04-21 21:01 | XMS_ITS | Encounter Summary ---
Author Organization [facility] Address [address] [place] [address] Care Team Providers Care Planing Machine Operator Name Role Phone Chiquita Brooks NP Primary Care Provider [phone] Reason for Visit * Reason Comments Rheumatoid Arthritis Follow-up Encounter Details Date Type Department Care Team (Latest Contact Info) Description 07/19/2023 8:00 EST Office Visit [facility] Rheumatology [address] [place] [address] Dhara Cheng MD [address] [facility] [address] [place] [address] 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) ([facility]) (Primary Dx); Essential hypertension; Macrocytosis without anemia; Trigger finger, acquired; Tobacco use; Long-term use of immunosuppressant medication [...] Sign Reading Time Taken Comments Blood Pressure 152/80 07/19/2023 0759 EST Pulse 68 07/19/2023 0759 EST Temperature - - Respiratory Rate - - Oxygen Saturation - - Inhaled Oxygen Concentration - - Weight 88.9 kg (196 lb) 07/19/2023 0759 EST Height - - Body Mass Index 29.8 01/01/2023 0825 EDT documented in this encounter Functional Status [...] * Patient Instructions* Dhara Cheng MD - 07/19/2023 8:00 EST Please check in with PCP to discuss colonoscopy, blood pressure, smoking cessation If trigger finger worsens, let me know, and we can do a cortisone injection Labs prior to next visit documented in this encounter Progress Notes * Dhara Cheng MD - 07/19/2023 0800 EST [facility] Rheumatology Chief Complaint Patient presents with Rheumatoid Arthritis Follow-up HPI: Seropositive RA. Ponce has signs and [...] is feeling well today. Ponce says he continues to have occasional brief flareups. Says flares up predominantly affect hand joints. Also notes that for the past two months, he's had active triggering of the left long finger--denies any pain. Continues in a physically demanding job. Occasionally/rarely takes APAP or ibuprofen for pain. I have reviewed the patient's problem list and have reconciled their medication list. Social History: Still smoking just over a pack per day. Hasn't been able to cut down but wants to. Review of Systems: Denies shortness of breath, chest pain. 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 Follows with Dr Carreon annually -- last visit 06/28/23; note reviewed by me. Eye exam for Plaquenil monitoring was done, 07/05/23, [facility]; no Plaquenil toxicity noted. Physical Examination: BP (!) 152/80 (BP Cuff Location: Right arm, BP Cuff Sizes: Adult, regular) Pulse 68 Wt 88.9 kg (196 lb) BMI 29.80 kg/m?? EYES: Conjunctivae not injected. NECK: No lymphadenopathy. LUNGS: Clear to auscultation bilaterally. CARDIOVASCULAR: Regular rate and rhythm. No murmur. No peripheral edema. JOINT EXAM: No synovitis of finger or toe joints; full passive painless flexion of digits. Active triggering of left long finger; no passive triggering. Left wrist with mild tendon swelling at ECU tendon, non-tender, no discomfort with ROM wrist, chronic. Mild reduction in ROM shoulders, without pain today. Mild bilateral flexion contractures of elbows, chronic. Reduction in external rotation of right more than left hip, without groin pain. Knee flexion is full, no discomfort, bilaterally. SKIN: No obvious skin lesions on exam today. Labs: No visits with results within 1 Week(s) from this visit. Latest known visit with results is: Phlebotomy Only on 07/06/2023 Component Date Value Ref Range Status Sodium 07/06/2023 139 136 - 145 mmol/L Final Potassium 07/06/2023 4.4 3.5 - 5.0 mmol/L Final Chloride 07/06/2023 106 96 - 110 mmol/L Final CO2 Total 07/06/2023 24 22 - 32 mmol/L Final Glucose 07/06/2023 109 (H) 70 - 99 mg/dl Final BUN 07/06/2023 18 10 - 26 mg/dL Final Creatinine 07/06/2023 0.81 0.66 - 1.25 mg/dL Final eGFR 07/06/2023 105 >60 mL/min/1.73m2 Final Total Protein 07/06/2023 7.0 6.3 - 8.2 g/dL Final Albumin 07/06/2023 4.2 3.4 - 4.9 g/dL Final Alkaline Phosphatase 07/06/2023 77 38 - 126 U/L Final AST 07/06/2023 27 15 - 46 U/L Final ALT 07/06/2023 23 <50 U/L Final Bilirubin, Total 07/06/2023 <0.5 <1.4 mg/dL Final Calcium 07/06/2023 9.3 8.5 - 10.5 mg/dL Final Albumin/Globulin Ratio 07/06/2023 1.5 1.0 - 2.5 g/dL Final Anion Gap 07/06/2023 9 5 - 14 mmol/L Final WBC 07/06/2023 11.33 (H) 4.00 - 10.40 K/cmm Final RBC 07/06/2023 4.26 (L) 4.36 - 5.78 M/cmm Final Hemoglobin 07/06/2023 15.0 13.8 - 17.3 g/dL Final HCT 07/06/2023 43.7 39.5 - 50.2 % Final MCV 07/06/2023 103 (H) 81 - 95 fL Final MCH 07/06/2023 35.2 (H) 27.6 - 33.0 pg Final MCHC 07/06/2023 34.3 32.8 - 36.4 g/dL Final RDW-CV 07/06/2023 13.2 <14.2 % Final RDW-SD 07/06/2023 49.7 (H) <46.0 fl Final PLT 07/06/2023 344 141 - 377 K/cmm Final MPV 07/06/2023 9.2 (L) 9.5 - 12.7 fL Final % Neutrophils 07/06/2023 59.5 % Final % Lymphocytes 07/06/2023 26.6 % Final % Monocytes 07/06/2023 8.2 % Final % Eosinophils 07/06/2023 4.7 % Final % Basophils 07/06/2023 0.6 % Final % Immature Grans 07/06/2023 0.4 % Final Absolute Neutrophils 07/06/2023 6.74 2.20 - 8.85 K/cmm Final Absolute Lymphocytes 07/06/2023 3.01 1.09 - 3.30 K/cmm Final Absolute Monocytes 07/06/2023 0.93 (H) 0.10 - 0.80 K/cmm Final Absolute Eosinophils 07/06/2023 0.53 0.03 - 0.61 K/cmm Final ABS Basophils 07/06/2023 0.07 0.01 - 0.11 K/cmm Final Absolute Immature Grans 07/06/2023 0.05 0.00 - 0.06 K/cmm Final Type of Differential: 07/06/2023 Auto Final C-Reactive Protein 07/06/2023 5.7 <10.0 mg/L Final Not fasting. Assessment and Plan: 1. 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) ([facility]) Low to no RA disease activity based on joint exam, history and lab results. Continue methotrexate 15 mg/week. Continue folic acid 1 mg daily. Continue hydroxychloroquine 200 mg daily. Up-to-date on eye exam for hydroxychloroquine monitoring. 2. Essential hypertension BP has been episodically increased in the office. Risk factors of tobacco use and rheumatoid arthritis. Highly recommended to Ponce that he see PCP to discuss. 3. Macrocytosis without anemia Stable, likely from methotrexate. 4. Trigger finger, acquired Discussed cortisone injection if symptoms worsen. 5. Tobacco use Discussed again the importance of smoking cessation for several reasons. 6. Long-term use of immunosuppressant medication No sign of adverse effects of DMARD therapy. Check labs prior to next visit. Follow up in 4 months. Dhara Cheng MD 07/19/2023 8:29 documented in this encounter Plan of Treatment Upcoming Encounters Date Type Department Care Team (Late st Contact Info) Description 09/11/2024 8:00 EST Office Visit [facility] Rheumatology [address] [place], [place] [id number] Dhara Cheng MD [address] [facility] [address] [place] [address] documented as of this encounter Visit Diagnoses Diagnosis 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) ([facility])- Primary Essential hypertension Unspecified essential hypertension Macrocytosis without anemia Other specified diseases of blood and blood-forming organs Trigger finger, acquired Trigger finger (acquired) Tobacco use Tobacco use disorder Long-term use of immunosuppressant medication Encounter for long-term (current) use of other medications documented in this encounter Care Teams Planing Machine Operator Relationship Specialty Start Date End Date Chiquita Brooks NP PCP - General 09/29/14 documented as of this encounter
--- OUTSIDE RECORDS SUMMARY | 2024-04-21 21:01 | XMS_ITS | Encounter Summary ---
Author Organization [facility] Address [address] [place] [address] Care Team Providers Care Wheat Washer Name Role Phone RafiChiquita stringer CAREER GUIDANCE TECHNICIAN Primary Care Provider [phone] Reason for Visit * Reason Comments Other Encounter Details Date Type Department Care Team (Late st Contact Info) Description 09/12/2020 Refill [facility] Rheumatology [address] [place] [address] Dhara Cheng MD [address] [place] [address] [place] [address] Other Social History Tobacco Use [...] 6 TABLETS BY MOUTH EVERY WEEK 72 Tab 1 09/13/2020 03/21/2021 documented in this encounter Plan of Treatment Upcoming Encounters Date Type Department Care Team (Late st Contact Info) Description 09/11/2024 8:00 EST Office Visit [facility] Rheumatology [address] [place] [address] Dhara Cheng MD 130 [facility] [place] [phone] documented as of this encounter Visit Diagnoses Not on filedocumented in this encounter Discontinued Medications Medication Sig Discontinue Reason Start Date End Da te methotrexate 2.5 mg tablet 6 tabs orally once a week 03/05/2020 09/13/2020 documented as of this encounter Care Teams Wheat Washer Relationship Specialty Start Date End Date Chiquita Brooks NP PCP - General 09/29/14 documented as of this encounter
--- OUTSIDE RECORDS SUMMARY | 2024-04-21 21:01 | XMS_ITS | Encounter Summary ---
Author Organization [facility] Address [address] [place] [address] Care Team Providers Care Resident Care Assistant Name Role Phone Todd Chiquita Leon NP Primary Care Provider [phone] Encounter Details Date Type Department Care Team (Late st Contact Info) Description 12/26/2022 15:40 EDT Phlebotomy Only [facility] - Outpatient Phlebotomy Drawing [address] [place] [address] Lab, [facility]omy Seropositive rheumatoid arthritis of multiple [...] Info) Description 09/11/2024 8:00 EST Office Visit [facility] Rheumatology [address] [place] [address] Dhara Cheng MD [address] [facility] [address] [place] [address] documented as of this encounter Procedures Procedure Name Priority Date/Time Associated Diagnosis Comments COMPLETE BLOOD COUNT AND DIFFERENTIAL Routine 12/26/2022 15:45 EDT 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) High risk medication use C REACTIVE PROTEIN Routine 12/26/2022 15 :45 EDT 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) High risk medication use COMPREHENSIVE METABOLIC PANEL (CMP) Routine 12/26/2022 15:45 EDT 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) High risk medication use documented in this encounter Results * C REACTIVE PROTEIN (12/26/2022 15:45 EDT) C-Reactive Protein 6.6 <10.0 mg/L 12/26/2022 16:22 EDT [facility] Blood VENOUS BLOOD / Unknown Venipuncture / Unknown 12/26/2022 15:45 EDT 12/26/2022 15:52 EDT Dhara Cheng MD CHEMISTRY & BLOOD GA S ORDERABLES [facility] [address] [place] [address] * (ABNORMAL) COMPLETE BLOOD COUNT AND DIFFERENTIAL (12/26/2022 15:45 EDT) WBC 14.16(H) 4.00 - 10.40 K/cmm 12/26/2022 16:06 EDT [facility] RBC 4.20(L) 4.36 - 5.78 M/cmm 12/26/2022 16:06 EDT [facility] Hemoglobin 14.5 13.8 - 17.3 g/dL 12/26/2022 16:06 EDT [facility] HCT 42.4 39.5 - 50.2 % 12/26/2022 16:06 [facility] MCV 101(H) 81 - 95 fL 12/26/2022 16:06 [facility] MCH 34.5(H) 27.6 - 33.0 pg 12/26/2022 16:06 [facility] MCHC 34.2 32.8 - 36.4 g/dL 12/26/2022 16:06 [facility] RDW-CV 13.0 <14.2 % 12/26/2022 16:06 [facility] RDW-SD 48.3(H) <46.0 fl 12/26/2022 16:06 [facility] PLT 357 141 - 377 K/cmm 12/26/2022 16:06 [facility] MPV 9.4(L) 9.5 - 12.7 fL 12/26/2022 16:06 [facility] % Neutrophils 69.1 % 12/26/2022 16:06 [facility] % Lymphocytes 18.6 % 12/26/2022 16:06 [facility] % Monocytes 8.5 % 12/26/2022 16:06 [facility] % Eosinophils 2.5 % 12/26/2022 16:06 [facility] % Basophils 0.8 % 12/26/2022 16:06 [facility] % Immature Grans 0.5 % 12/27/19 16:06 [facility] Absolute Neutrophils 9.77(H) 2.20 - 8.85 K/cmm 12/26/2022 16:06 [facility] Absolute Lymphocytes 2.64 1.09 - 3.30 K/cmm 12/26/2022 16:06 [facility] Absolute Monocytes 1.21(H) 0.10 - 0.80 K/cmm 12/26/2022 16:06 [facility] Absolute Eosinophils 0.36 0.03 - 0.61 K/cmm 12/26/2022 16:06 [facility] ABS Basophils 0.11 0.01 - 0.11 K/cmm 12/26/2022 16:06 [facility] Absolute Immature Grans 0.07(H) 0.00 - 0.06 K/cmm 12/26/2022 16:06 [facility] Type of Differential: Auto 12/26/2022 16:06 [facility] Blood VENOUS BLOOD / Unknown Venipuncture / Unknown 12/26/2022 15:45 EDT 12/26/2022 16:00 EDT Dhara Cheng MD PACKAGES & DNA PROBE ORDERABLES [facility] [address] [place] [address] * (ABNORMAL) COMPREHENSIVE METABOLIC PANEL (CMP) (12/26/2022 15:45 EDT) Sodium 140 136 - 145 mmol/L 12/26/2022 16:22 [facility] Potassium 4.1 3.5 - 5.0 mmol/L 12/26/2022 16:22 [facility] Chloride 107 96 - 110 mmol/L 12/26/2022 16:22 [facility] CO2 Total 23 22 - 32 mmol/L 12/26/2022 16:22 [facility] Glucose 105(H) 70 - 100 mg/dl 12/26/2022 16:22 [facility] BUN 15 10 - 26 mg/dL 12/26/2022 16:22 [facility] Creatinine 0.81 0.66 - 1.25 mg/dL 12/26/2022 16:22 [facility] eGFR 105 >60 mL/min/1.7 3m2 12/26/2022 16:22 [facility] Total Protein 7.0 6.3 - 8.2 g/dL 12/26/2022 16:22 [facility] Albumin 4.0 3.4 - 4.9 g/dL 12/26/2022 16:22 [facility] Alkaline Phosphatase 81 38 - 126 U/L 12/26/2022 16:22 [facility] AST 30 15 - 46 U/L 12/26/2022 16:22 [facility] ALT 23 <50 U/L 12/26/2022 16:22 [facility] Bilirubin, Total 0.4 <1.4 mg/dL 12/27/19 16:22 [facility] Calcium 9.1 8.5 - 10.5 mg/dL 12/26/2022 16:22 [facility] Albumin/Globulin Ratio 1.3 1.0 - 2.5 12/26/2022 16:22 [facility] Anion Gap 10 5 - 14 mmol/L 12/26/2022 16:22 [facility] Blood VENOUS BLOOD / Unknown Venipuncture / Unknown 12/26/2022 15:45 EDT 12/26/2022 15:52 EDT Dhara Cheng MD CHEMISTRY & BLOOD GA S ORDERABLES [facility] [address] [place] [address] documented in this encounter Visit Diagnoses Diagnosis Seropositive rheumatoid arthritis of multiple joints ([facility]) High risk medication use Encounter for long-term (current) use of other medications documented in this encounter Care Teams Resident Care Assistant Relationship Specialty Start Date End Date Chiquita Brooks NP PCP - General 09/29/14 documented as of this encounter
--- OUTSIDE RECORDS SUMMARY | 2024-04-21 21:01 | XMS_ITS | Encounter Summary ---
Author Organization [facility] Address [address] [place] [address] Care Team Providers Care Quill Cleaner Name Role Phone RafiChiquita stringer SOFTWARE QUALITY SPECIALIST Primary Care Provider [phone] Reason for Visit * Reason Comments Follow-up RA. Feeling pretty g ood, left knee more painful. no new concerns Encounter Details Date Type Department Care Team (Latest Contact Info) Description 01/01/2023 8:30 EDT Office Visit [facility] Rheumatology [address] [place] [address] Dhara Cheng MD [address] [facility] [address] [place] [address] 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) (Primary Dx); Macrocytosis without anemia; Tobacco use; Neutrophilia; Numbness and tingling of both feet; Acute pain of left knee; Long-term use of immunosuppressant medication Social History [...] Sign Reading Time Taken Comments Blood Pressure 128/82 01/01/2023 0825 EDT Pulse 70 01/01/2023 0825 EDT Temperature 36.2 ??C (97.2 ??F) 01/01/2023 0825 EDT Respiratory Rate - - Oxygen Saturation - - Inhaled Oxygen Concentration - - Weight 83.5 kg (184 lb) 01/01/2023 0825 EDT Height 172.7 cm (5' 8) 01/01/2023 0825 EDT Body Mass Index 27.98 01/01/2023 0825 EDT documented in this encounter [...] * Patient Instructions* Dhara Cheng MD - 01/01/2023 8:30 EDT Please connect with your PCP Smoking cessation Labs prior to next visit documented in this encounter Progress Notes * Dhara Cheng MD - 01/01/2023 0830 EDT [facility] Rheumatology Chief Complaint Patient presents with ??? Follow-up RA. Feeling pretty good, left knee more painful. no new concerns HPI: Seropositive RA. Ponce has signs and [...] continues to have occasional brief flareups. Says the left knee has been bothering him for the past couple of weeks. Denies any new activity.Says he notices slight swelling, maybe some warmth. Says he did spend some time on a ladder. Continues in a physically demanding job. Occasionally/rarely takes APAP for pain. Outpatient Encounter Medications as of 01/01/2023 Medication Sig ??? folic acid (FOLVITE) 1 mg tablet 1 tab(s) orally once a day ??? hydrOXYchloroQUINE (PLAQUENIL) 200 mg tablet TAKE ONE TABLET BY MOUTH EVERY DAY ??? methotrexate 2.5 mg tablet Take 6 tabs one day a week. ??? valACYclovir (VALTREX) 500 mg tablet 1 tab(s) orally every morning No facility-administered encounter medications on file as of 01/01/2023. Allergies include: Patient has no known allergies. Patient Active Problem List Diagnosis ??? 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) ([facility]) ??? Macrocytosis without anemia ??? Lymphomatoid papulosis, type A (HCC-CMS) ??? Long-term use of immunosuppressant medication ??? Anogenital herpesviral infection, unspecified ??? Tobacco use ??? Essential hypertension Family History Problem Relation Age of Onset ??? Rheumatologic Disease Mother Social History: Still smoking just over a pack per day. Is aware this is his biggest enemy and feels like he isaging. Review of Systems: Denies shortness of breath, chest pain. 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 Follows with Dr Carreon annually. Has had a few episodes of feet falling asleep when he is working and moving. Eye exam, this past fall (2021), [facility], Plaquenil monitoring; and per Ponce, no toxicity. Physical Examination: BP 128/82 (BP Cuff Location: Right arm, BP Cuff Sizes: Adult, regular) Pulse 70 Temp 36.2 ??C (97.2 ??F) Ht 172.7 cm (68) Wt 83.5 kg (184 lb) BMI 27.98 kg/m?? EYES: Conjunctivae not injected. NECK: No lymphadenopathy. LUNGS: Clear to auscultation bilaterally. CARDIOVASCULAR: Regular rate and rhythm. No murmur. No peripheral edema. JOINT EXAM: ??No synovitis of finger or toe joints; full passive painless flexion of digits. Left wrist with mild tendon swelling at ECU tendon, non- tender, no discomfort with ROM wrist, chronic. Mild reduction in ROM shoulders, without pain today. Mild bilateral flexion contractures of elbows, chronic. Reduction in external rotation of right more than left hip, without groin pain. Knee flexion is full, no discomfort, bilaterally; left knee is not tender or warm, no significant knee effusion. SKIN: No obvious skin lesions on exam today. PULSES: 1+ DP and PT pulses left foot; I'm not able to palpate the same on right foot. Labs: Phlebotomy Only on 12/26/2022 Component Date Value Ref Range Status ??? Sodium 12/26/2022 140 136 - 145 mmol/L Final ??? Potassium 12/26/2022 4.1 3.5 - 5.0 mmol/L Final ??? Chloride 12/26/2022 107 96 - 110 mmol/L Final ??? CO2 Total 12/26/2022 23 22 - 32 mmol/L Final ??? Glucose 12/26/2022 105 (H) 70 - 100 mg/dl Final ??? BUN 12/26/2022 15 10 - 26 mg/dL Final ??? Creatinine 12/26/2022 0.81 0.66 - 1.25 mg/dL Final ? ? eGFR 12/26/2022 105 >60 mL/min/1.73m2 Final ??? Total Protein 12/26/2022 7.0 6.3 - 8.2 g/dL Final ??? Albumin 12/26/2022 4.0 3.4 - 4.9 g/dL Final ??? Alkaline Phosphatase 12/26/2022 81 38 - 126 U/L Final ??? AST 12/26/2022 30 15 - 46 U/L Final ? ? ALT 12/26/2022 23 <50 U/L Final ? ? Bilirubin, Total 12/26/2022 0.4 <1.4 mg/dL Final ??? Calcium 12/26/2022 9.1 8.5 - 10.5 mg/dL Final ??? Albumin/Globulin Ratio 12/26/2022 1.3 1.0 - 2.5 Final ??? Anion Gap 12/26/2022 10 5 - 14 mmol/L Final ??? WBC 12/26/2022 14.16 (H) 4.00 - 10.40 K/cmm Final ??? RBC 12/26/2022 4.20 (L) 4.36 - 5.78 M/cmm Final ??? Hemoglobin 12/26/2022 14.5 13.8 - 17.3 g/dL Final ??? HCT 12/26/2022 42.4 39.5 - 50.2 % Final ??? MCV 12/26/2022 101 (H) 81 - 95 fL Final ??? MCH 12/26/2022 34.5 (H) 27.6 - 33.0 pg Final ??? MCHC 12/26/2022 34.2 32.8 - 36.4 g/dL Final ? ? RDW-CV 12/26/2022 13.0 <14.2 % Final ? ? RDW-SD 12/26/2022 48.3 (H) <46.0 fl Final ??? PLT 12/26/2022 357 141 - 377 K/cmm Final ??? MPV 12/26/2022 9.4 (L) 9.5 - 12.7 fL Final ??? % Neutrophils 12/26/2022 69.1 % Final ??? % Lymphocytes 12/26/2022 18.6 % Final ??? % Monocytes 12/26/2022 8.5 % Final ??? % Eosinophils 12/26/2022 2.5 % Final ??? % Basophils 12/26/2022 0.8 % Final ??? % Immature Grans 12/26/2022 0.5 % Final ??? Absolute Neutrophils 12/26/2022 9.77 (H) 2.20 - 8.85 K/cmm Final ??? Absolute Lymphocytes 12/26/2022 2.64 1.09 - 3.30 K/cmm Final ??? Absolute Monocytes 12/26/2022 1.21 (H) 0.10 - 0.80 K/cmm Final ??? Absolute Eosinophils 12/26/2022 0.36 0.03 - 0.61 K/cmm Final ??? ABS Basophils 12/26/2022 0.11 0.01 - 0.11 K/cmm Final ??? Absolute Immature Grans 12/26/2022 0.07 (H) 0.00 - 0.06 K/cmm Final ??? Type of Differential: 12/26/2022 Auto Final ? ? C-Reactive Protein 12/26/2022 6.6 <10.0 mg/L Final Not fasting. Assessment and Plan: 1. 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) ([facility]) RAPID3 SCORES AND INTERPRETATION 08/31/2022 01/01/2023 Functional Status 0 0.3 Pain Tolerance 1.5 2 Global Estimate .5 1.5 RAPID3 2 3.8 Interpretation Near Remission Low Doing well on current therapy for rheumatoid arthritis. 2. Macrocytosis without anemia Stable, likely from methotrexate. 3. Tobacco use Discussed again the importance of smoking cessation for several reasons. Highly recommended again that Ponce connect with his PCP for health maintenance and connection to smoking cessation program. 4. Neutrophilia Chronic, but mildly increased from baseline. If trending up further, will consider hematology evaluation. 5. Numbness and tingling of both feet Might be vascular, as DP/PT pulses difficult to palpate today. If not improving, will consider ABIs. 6. Acute pain of left knee Unremarkable exam today; likely overuse. 7. Long-term use of immunosuppressant medication Check labs prior to next visit. Follow up in 4 months. Dhara Cheng MD 01/01/2023 8:48 documented in this encounter Plan of Treatment Upcoming Encounters Date Type Department Care Team (Late st Contact Info) Description 09/11/2024 8:00 EST Office Visit [facility] Rheumatology [address] [place] [address] Dhara Cheng MD [address] [facility] [address] [place] [phone] documented as of this encounter Visit Diagnoses Diagnosis 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)- Primary Macrocytosis without anemia Other specified diseases of blood and blood-forming organs Tobacco use Tobacco use disorder Neutrophilia Other specified disease of white blood cells Numbness and tingling of both feet Acute pain of left knee Long-term use of immunosuppressant medication Encounter for long-term (current) use of other medications documented in this encounter Care Teams Quill Cleaner Relationship Specialty Start Date End Date Chiquita Brooks, SMOOTH PCP - General 09/29/14 documented as of this encounter
--- OUTSIDE RECORDS SUMMARY | 2024-04-21 21:01 | XMS_ITS | Encounter Summary ---
Author Organization [facility] Address [address] [place] [address] Care Team Providers Care Quill Winder Name Role Phone Todd Chiquita Leon NP Primary Care Provider [phone] Encounter Details Date Type Department Care Team (Late st Contact Info) Description 11/26/2023 7:05 EDT Phlebotomy Only [facility] - Outpatient Phlebotomy Drawing [address] [place] [address] Lab, [facility] Seropositive rheumatoid arthritis of multiple [...] Description 09/11/2024 8:00 EST Office Visit [facility] Rheumatology [address] [id number] Dhara Cheng MD [address] [facility] [address] [place] [phone] documented as of this encounter Procedures Procedure Name Priority Date/Time Associated Diagnosis Comments COMPLETE BLOOD COUNT AND DIFFERENTIAL Routine 11/26/2023 7:16 EDT 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) High risk medication use C REACTIVE PROTEIN Routine 11/26/2023 7: 16 EDT 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) High risk medication use COMPREHENSIVE METABOLIC PANEL (CMP) Routine 11/26/2023 7:16 EDT 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) High risk medication use documented in this encounter Results * C REACTIVE PROTEIN (11/26/2023 7:16 EDT) C-Reactive Protein <5.0 <10.0 mg/L 11/26/2023 8:[address] [facility] Blood VENOUS BLOOD / Unknown Venipuncture / Unknown 11/26/2023 7:16 EDT 11/26/2023 7:32 EDT Dhara Cheng MD CHEMISTRY & BLOOD GA S ORDERABLES [facility] [address] [place] [address] * (ABNORMAL) COMPREHENSIVE METABOLIC PANEL (CMP) (11/26/2023 7:16 EDT) Sodium 142 136 - 145 mmol/L 11/26/2023 8:[address] [facility] Potassium 4.0 3.5 - 5.0 mmol/L 11/26/2023 8:[address] [facility] Chloride 110 96 - 110 mmol/L 11/26/2023 8:[address] [facility] CO2 Total 24 22 - 32 mmol/L 11/26/2023 8:[address] [facility] Glucose 105(H) 70 - 99 mg/dl 11/26/2023 8:26 [facility] BUN 15 10 - 26 mg/dL 11/26/2023 8:26 [facility] Creatinine 0.78 0.66 - 1.25 mg/dL 11/26/2023 8:26 [facility] eGFR 106 >60 mL/min/1.7 3m2 11/26/2023 8:26 [facility] Total Protein 6.6 6.3 - 8.2 g/dL 11/26/2023 8:26 [facility] Albumin 3.9 3.4 - 4.9 g/dL 11/26/2023 8:26 [facility] Alkaline Phosphatase 78 38 - 126 U/L 11/26/2023 8:26 [facility] AST 26 15 - 46 U/L 11/26/2023 8:26 [facility] ALT 21 <50 U/L 11/26/2023 8:26 [facility] Bilirubin, Total 0.5 <1.4 mg/dL 11/26/19 8:26 [facility] Calcium 9.3 8.5 - 10.5 mg/dL 11/26/2023 8:26 [facility] Albumin/Globulin Ratio 1.4 1.0 - 2.5 11/26/2023 8:26 [facility] Anion Gap 8 5 - 14 mmol/L 11/26/2023 8:26 [facility] Blood VENOUS BLOOD / Unknown Venipuncture / Unknown 11/26/2023 7:16 EDT 11/26/2023 7:32 EDT Dhara Cheng MD CHEMISTRY & BLOOD GA S ORDERABLES [facility] [address] [place] [address] * (ABNORMAL) COMPLETE BLOOD COUNT AND DIFFERENTIAL (11/26/2023 7:16 EDT) WBC 9.14 4.00 - 10.40 K/cmm 11/26/2023 7:59 [facility] RBC 4.26(L) 4.36 - 5.78 M/cmm 11/26/2023 7:59 [facility] Hemoglobin 14.8 13.8 - 17.3 g/dL 11/26/2023 7:59 [facility] HCT 43.6 39.5 - 50.2 % 11/26/2023 7:59 [facility] MCV 102(H) 81 - 95 fL 11/26/2023 7:59 [facility] MCH 34.7(H) 27.6 - 33.0 pg 11/26/2023 7:59 [facility] MCHC 33.9 32.8 - 36.4 g/dL 11/26/2023 7:59 [facility] RDW-CV 13.3 <14.2 % 11/26/2023 7:59 [facility] RDW-SD 50.0(H) <46.0 fl 11/26/2023 7:59 [facility] PLT 351 141 - 377 K/cmm 11/26/2023 7:59 [facility] MPV 9.4(L) 9.5 - 12.7 fL 11/26/2023 7:59 [facility] % Neutrophils 68.2 % 11/26/2023 7:59 [facility] % Lymphocytes 19.9 % 11/26/2023 7:59 [facility] % Monocytes 7.4 % 11/26/2023 7:59 [facility] % Eosinophils 3.4 % 11/26/2023 7:59 [facility] % Basophils 0.8 % 11/26/2023 7:59 [facility] % Immature Grans 0.3 % 11/26/19 7:59 [facility] Absolute Neutrophils 6.23 2.20 - 8.85 K/cmm 11/26/2023 7:59 [facility] Absolute Lymphocytes 1.82 1.09 - 3.30 K/cmm 11/26/2023 7:[address] [facility] Absolute Monocytes 0.68 0.10 - 0.80 K/cmm 11/26/2023 7:59 [facility] Absolute Eosinophils 0.31 0.03 - 0.61 K/cmm 11/26/2023 7:[address] [facility] ABS Basophils 0.07 0.01 - 0.11 K/cmm 11/26/2023 7:59 [facility] Absolute Immature Grans 0.03 0.00 - 0.06 K/cmm 11/26/2023 7:59 [facility] Type of Differential: Auto 11/26/2023 7:59 [facility] Blood VENOUS BLOOD / Unknown Venipuncture / Unknown 11/26/2023 7:16 EDT 11/26/2023 7:33 EDT Dhara Cheng MD PACKAGES & DNA PROBE ORDERABLES Performing Organization Address City/State/[facility] Co de Phone Number [facility] [address] [place] [address] documented in this encounter Visit Diagnoses Diagnosis 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) High risk medication use Encounter for long-term (current) use of other medications documented in this encounter Care Teams Quill Winder Relationship Specialty Start Date End Date Chiquita Brooks, SMOOTH PCP - General 09/29/14 documented as of this encounter
--- OUTSIDE RECORDS SUMMARY | 2024-04-21 21:01 | XMS_ITS | Encounter Summary ---
Author Organization [facility] Address [address] [place] [address] Care Team Providers Care Tool Grinder Name Role Phone RafiChiquita stringer NP Primary Care Provider [phone] Reason for Visit * Reason Comments Other Encounter Details Date Type Department Care Team (Late st Contact Info) Description 09/11/2021 Refill [facility] Rheumatology [address] [place] [address] Dhara Cheng MD [address] [place] [address] [place] [address] Other Social History Tobacco Use [...] BY MOUTH EVERY WEEK 72 Tablet 1 09/12/2021 12/14/2021 documented in this encounter Plan of Treatment Upcoming Encounters Date Type Department Care Team (Late st Contact Info) Description 09/11/2024 8:00 EST Office Visit [facility] Rheumatology [address] [place], [place] [phone] Dhara Cheng MD [address] [facility] [address] [place] [phone] documented as of this encounter Visit Diagnoses Not on filedocumented in this encounter Discontinued Medications Medication Sig Discontinue Reason Start Date End Da te methotrexate 2.5 mg tablet TAKE 6 TABLETS BY MOUTH EVERY WEEK 03/21/2021 09/12/2021 documented as of this encounter Care Teams Tool Grinder Relationship Specialty Start Date End Date Chiquita Brooks NP PCP - General 09/29/14 documented as of this encounter
--- OUTSIDE RECORDS SUMMARY | 2024-04-21 21:01 | XMS_ITS | Encounter Summary ---
Author Organization [facility] Address [address] [place] [address] Care Team Providers Care Grocery Supervisor Name Role Phone Chiquita Brooks NP Primary Care Provider [phone] Reason for Visit * Reason Onset Date Comments Medications Refill 10/10/2022 Encounter Details Date Type Department Care Team (Late st Contact Info) Description 10/10/2022 Telephone [facility] [place] [address] [place] [address] Dhara Cheng MD [address] [facility] [address] [place] [address] Medications Refill Social History Tobacco [...] 1 tab(s) orally once a day 90 Tablet 3 10/10/2022 02/08/2024 hydrOXYchloroQUINE (PLAQUENIL) 200 mg tablet TAKE ONE TABLET BY MOUTH EVERY DAY 90 Tablet 3 10/10/2022 02/08/2024 methotrexate 2.5 mg tablet Take 6 tabs one day a week. 72 Tablet 1 10/10/2022 03/29/2023 documented in this encounter Miscellaneous Notes * Telephone Encounter - Eve Catherine RN - 10/10/2022 1658 EDT Last visit note reviewed and follow up scheduled for 01/01/23. Labs up to date. Refill sent as noted. * Telephone Encounter - Latasha García - 10/10/2022 1600 EDT Pt calling to request that all his med[facility], Meth[facility]ate, [facility]. He is completely out, patient had thought they were all called in at his last appt in August. documented in this encounter Plan of Treatment Upcoming Encounters Date Type Department Care Team (Late st Contact Info) Description 09/11/2024 8:00 EST Office Visit [facility] Rheumatology [address] [place], [place] [address] Dhara Cheng MD [address] [facility] [address] [place] [phone] documented as of this encounter Visit Diagnoses Not on filedocumented in this encounter Discontinued Medications Medication Sig Discontinue Reason Start Date End Da te hydrOXYchloroQUINE (PLAQUENIL) 200 mg tablet TAKE ONE TABLET BY MOUTH EVERY DAY Reorder 12/14/2021 10/10/2022 methotrexate 2.5 mg tablet Take 6 tabs one day a week. Reorder 12/14/2021 10/10/2022 folic acid (FOLVITE) 1 mg tablet 1 tab(s) orally once a day Reorder 12/14/2021 10/10/2022 documented as of this encounter Care Teams Grocery Supervisor Relationship Specialty Start Date End Date Chiquita Brooks, SMOOTH PCP - General 09/29/14 documented as of this encounter
--- OUTSIDE RECORDS SUMMARY | 2024-04-21 21:01 | XMS_ITS | Encounter Summary ---
Author Organization [facility] Address [address] [place] [address] Care Team Providers Care Classroom Instructional Aide Name Role Phone Rafimattnery Chiquita Leon NP Primary Care Provider [phone] Encounter Details Date Type Department Care Team (Late st Contact Info) Description 07/06/2023 15:10 EST Phlebotomy Only [facility] - Outpatient Phlebotomy Drawing [address] [place] [address] Lab, [facility] Op Phlebotomy Seropositive rheumatoid arthritis of multiple [...] Info) Description 09/11/2024 8:00 EST Office Visit [facility] Rheumatology [address] [place] [address] Dhara Cheng MD [address] [facility] [address] [place] [phone] documented as of this encounter Procedures Procedure Name Priority Date/Time Associated Diagnosis Comments COMPLETE BLOOD COUNT AND DIFFERENTIAL Routine 07/06/2023 15:13 EST 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) High risk medication use C REACTIVE PROTEIN Routine 07/06/2023 15 :13 EST 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) High risk medication use COMPREHENSIVE METABOLIC PANEL (CMP) Routine 07/06/2023 15:13 EST 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) High risk medication use documented in this encounter Results * C REACTIVE PROTEIN (07/06/2023 15:13 EST) Pathologist [facility] C-Reactive Protein 5.7 <10.0 mg/L 07/06/2023 16:09 EST [facility] Blood VENOUS BLOOD / Unknown Venipuncture / Unknown 07/06/2023 15:13 EST 07/06/2023 15:37 EST Dhara Cheng MD CHEMISTRY & BLOOD GA S ORDERABLES [facility] [address] [place] [address] * (ABNORMAL) COMPLETE BLOOD COUNT AND DIFFERENTIAL (07/06/2023 15:13 EST) Pathologist [facility] WBC 11.33(H) 4.00 - 10.40 K/cmm 07/06/2023 15:50 [facility] RBC 4.26(L) 4.36 - 5.78 M/cmm 07/06/2023 15:50 [facility] Hemoglobin 15.0 13.8 - 17.3 g/dL 07/06/2023 15:50 [facility] HCT 43.7 39.5 - 50.2 % 07/06/2023 15:50 [facility] MCV 103(H) 81 - 95 fL 07/06/2023 15:50 [facility] MCH 35.2(H) 27.6 - 33.0 pg 07/06/2023 15:50 [facility] MCHC 34.3 32.8 - 36.4 g/dL 07/06/2023 15:50 [facility] RDW-CV 13.2 <14.2 % 07/06/2023 15:50 [facility] RDW-SD 49.7(H) <46.0 fl 07/06/2023 15:50 [facility] PLT 344 141 - 377 K/cmm 07/06/2023 15:50 [facility] MPV 9.2(L) 9.5 - 12.7 fL 07/06/2023 15:50 [facility] % Neutrophils 59.5 % 07/06/2023 15:50 [facility] % Lymphocytes 26.6 % 07/06/2023 15:50 [facility] % Monocytes 8.2 % 07/06/2023 15:50 [facility] % Eosinophils 4.7 % 07/06/2023 15:50 [facility] % Basophils 0.6 % 07/06/2023 15:50 [facility] % Immature Grans 0.4 % 07/06/20 23 15:50 [facility] Absolute Neutrophils 6.74 2.20 - 8.85 K/cmm 07/06/2023 15:50 [facility] Absolute Lymphocytes 3.01 1.09 - 3.30 K/cmm 07/06/2023 15:50 [facility] Absolute Monocytes 0.93(H) 0.10 - 0.80 K/cmm 07/06/2023 15:50 [facility] Absolute Eosinophils 0.53 0.03 - 0.61 K/cmm 07/06/2023 15:50 [facility] ABS Basophils 0.07 0.01 - 0.11 K/cmm 07/06/2023 15:50 [facility] Absolute Immature Grans 0.05 0.00 - 0.06 K/cmm 07/06/2023 15:50 [facility] Type of Differential: Auto 07/06/2023 15:50 [facility] Blood VENOUS BLOOD / Unknown Venipuncture / Unknown 07/06/2023 15:13 EST 07/06/2023 15:46 EST Dhara Cheng MD PACKAGES & DNA PROBE ORDERABLES [facility] [address] [place] [address] * (ABNORMAL) COMPREHENSIVE METABOLIC PANEL (CMP) (07/06/2023 15:13 EST) Sodium 139 136 - 145 mmol/L 07/06/2023 16:09 [facility] Potassium 4.4 3.5 - 5.0 mmol/L 07/06/2023 16:09 [facility] Chloride 106 96 - 110 mmol/L 07/06/2023 16:09 [facility] CO2 Total 24 22 - 32 mmol/L 07/06/2023 16:09 [facility] Glucose 109(H) 70 - 99 mg/dl 07/06/2023 16:09 [facility] BUN 18 10 - 26 mg/dL 07/06/2023 16:09 [facility] Creatinine 0.81 0.66 - 1.25 mg/dL 07/06/2023 16:09 [facility] eGFR 105 >60 mL/min/1.7 3m2 07/06/2023 16:09 [facility] Total Protein 7.0 6.3 - 8.2 g/dL 07/06/2023 16:09 [facility] Albumin 4.2 3.4 - 4.9 g/dL 07/06/2023 16:09 [facility] Alkaline Phosphatase 77 38 - 126 U/L 07/06/2023 16:09 [facility] AST 27 15 - 46 U/L 07/06/2023 16:09 [facility] ALT 23 <50 U/L 07/06/2023 16:09 [facility] Bilirubin, Total <0.5 <1.4 mg/dL 07/06/20 16:09 [facility] Calcium 9.3 8.5 - 10.5 mg/dL 07/06/2023 16:09 [facility] Albumin/Globulin Ratio 1.5 1.0 - 2.5 g/dL 07/06/2023 16:09 [facility] Anion Gap 9 5 - 14 mmol/L 07/06/2023 16:09 [facility] Blood VENOUS BLOOD / Unknown Venipuncture / Unknown 07/06/2023 15:13 EST 07/06/2023 15:37 EST Dhara Cheng MD CHEMISTRY & BLOOD GA S ORDERABLES Performing Organization Address City/State/[facility] Co de Phone Number [facility] [address] [place] [address] documented in this encounter Visit Diagnoses Diagnosis 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) High risk medication use Encounter for long-term (current) use of other medications documented in this encounter Care Teams Classroom Instructional Aide Relationship Specialty Start Date End Date Chiquita Brooks NP PCP - General 09/29/14 documented as of this encounter
--- OUTSIDE RECORDS SUMMARY | 2024-04-21 21:01 | XMS_ITS | Encounter Summary ---
Author Organization [facility] Address [address] [place] [address] Care Team Providers Care Third Shift Lieutenant Name Role Phone Todd Chiquita Leon WHOLESALER Primary Care Provider [phone] Reason for Visit * Reason Comments Follow-up SPRA; feels well wit h no pain today. Had labs done at [facility] this AM. Called to request results be faxed. Encounter Details Date Type Department Care Team (Latest Contact Info) Description 08/23/2020 11:[address] [facility] Rheumatology [address] [place] [address] Dhara Cheng MD 130 [facility] [address] [place] [address] Seropositive rheumatoid arthritis ([facility]) (Primary Dx); Macrocytosis without anemia; Long-term use [...] Sign Reading Time Taken Comments Blood Pressure 142/90 08/23/2020 1052 EST Pulse - - Temperature 36.4 ??C (97.6 ??F) 08/23/2020 1052 EST Respiratory Rate - - Oxygen Saturation - - Inhaled Oxygen Concentration - - Weight 85.3 kg (188 lb) 08/23/2020 1052 EST Height 172.7 cm (5' 8) 08/23/2020 1052 EST Body Mass Index 28.59 08/23/2020 1052 EST documented in this encounter [...] * Patient Instructions* Dhara Cheng MD - 08/23/2020 11:00 EST Labs prior to next visit. Recommend COVID vaccine when available. Recommend flu vaccine. documented in this encounter Progress Notes * Dhara Cheng MD - 08/23/2020 1100 EST [facility] Rheumatology Chief Complaint Patient presents with ??? Follow-up SPRA; feels well with no pain today. Had labs done at [facility] this AM. Called to request results be faxed. HPI: Seropositive RA. Ponce has signs and [...] or significant stiffness. He says he has a day or so whenhe notices some swelling in a knuckle, or pain in the hip or leg. Ponce noted neck pain at the last visit, and he says this has resolved. Current Outpatient Medications Medication ??? folic acid [...] a pack per day. This is unchanged. Contemplating changing jobs given the physical stress on his body. Review of Systems: Denies shortness of breath, chest pain. 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 Follow with Dr Carreon. Has follow up eye exam for question of hemorrhage, and says this was gone. Says weight is stable. Has not had flu vaccine. Physical Examination: BP (!) 142/90 Temp 36.4 ??C (97.6 ??F) Ht 172.7 cm (68) Wt 85.3 kg (188 lb) BMI 28.59 kg/m?? EYES: Conjunctivae not injected. NECK: No [...] known visit with results is: Abstract on 04/22/2020 Component Date Value Ref Range Status ??? WBC, External 04/16/2020 12.62* 4.4 - 10.8 Final ??? RBC, External 04/16/2020 4.14* 4.36 - 5.78 Final ??? Hemoglobin, External 04/16/2020 14.7 13.5 - 17.5 Final ??? HCT, External 04/16/2020 43.1 40.0 - 50.0 Final ??? MCV, External 04/16/2020 104.1* 80 - 95 Final ??? MCH, External 04/16/2020 35.5* 27.0 - 33.0 Final ??? MCHC, External 04/16/2020 34.1 32.0 - 36.0 Final ??? PLT, External 04/16/2020 350 130 - 400 Final ??? RDW-CV, External 04/16/2020 13.5 11.8 - 14.1 Final ??? Neutrophils, External 04/16/2020 60.6 Final ??? Lymphocytes, External 04/16/2020 28.1 Final ??? Monocytes, External 04/16/2020 6.8 Final ??? Eosinophils, External 04/16/2020 3.6 Final ??? Basophils, External 04/16/2020 0.7 Final ??? ABS Neutrophils, External 04/16/2020 7.65* 1.2 - 6.7 Final ??? ABS Lymphs, External 04/16/2020 3.55* 1.2 - 3.4 Final ??? ABS Monocytes, External 04/16/2020 0.86* 0.1 - 0.8 Final ??? ABS Eosinophils, External 04/16/2020 0.45 0.0 - 0.7 Final ??? ABS Basophils, External 04/16/2020 0.09 0.0 - 0.2 Final ??? C-Reactive Protein, External 04/16/2020 0.32* 0.0 - 0.3 Final ? ? GFR, Calculated, External 04/16/2020 >60 Final ??? Glucose, Serum, External 04/16/2020 104 74 - 106 Final ??? Albumin, External 04/16/2020 3.7 3.4 - 5.0 Final ??? Total Alkaline Phosphatase, [place] Up* 04/16/2020 102 46 - 116 Final ??? ALT, External 04/16/2020 26 16 - 63 Final ??? AST, External 04/16/2020 21 15 - 37 Final ??? BUN, External 04/16/2020 13 7 - 18 Final ??? Calcium, External 04/16/2020 9.0 8.5 - 10.1 Final ??? Chloride, External 04/16/2020 102 98 - 107 Final ??? CO2, External 04/16/2020 26.4 21.0 - 32.0 Final ??? Creatinine, External 04/16/2020 0.94 0.70 - 1.30 Final ??? Potassium, External 04/16/2020 4.1 3.5 - 5.1 Final ??? Sodium, External 04/16/2020 139 136 - 145 Final ??? Total Protein, External 04/16/2020 7.0 6.4 - 8.2 Final ??? Bilirubin, Total, External 04/16/2020 0.2 0.2 - 1.0 Final Labs 08/23/20, [facility]: CMP wnl. CRP 0.18 mg/dL. WBC 9.87, HGB 15.7, PLT 397, MCV 102, ALYC 2810. Assessment and Plan: 1. Seropositive rheumatoid arthritis (HCC-CMS) Low to no RA disease activity based on joint exam, history and lab results. 2. Macrocytosis without anemia Improved, along with resolution of lymphocytosis on last labs. 3. Long-term use of immunosuppressant medication Check labs prior to next visit. Follow up in 4 months. Recommend flu vaccine as well as COVID vaccine when available. Dhara Cheng MD 08/23/2020 11:12 documented in this encounter Plan of Treatment Upcoming Encounters Date Type Department Care Team (Late st Contact Info) Description 09/11/2024 8:[address] [facility] Rheumatology [address] [place] [address] Dhara Cheng MD 130 [facility] [address] [place] [phone] documented as of this encounter Visit Diagnoses Diagnosis Seropositive rheumatoid arthritis (HCC-CMS)- Primary Rheumatoid arthritis Macrocytosis without anemia Other specified diseases of blood and blood-forming organs Long-term use of immunosuppressant medication Encounter for long-term (current) use of other medications documented in this encounter Care Teams Third Shift Lieutenant Relationship Specialty Start Date End Date Chiquita Brooks NP PCP - General 09/29/14 documented as of this encounter
--- OUTSIDE RECORDS SUMMARY | 2024-04-21 21:01 | XMS_ITS | Encounter Summary ---
Author Organization [facility] Address [address] [place] [address] Care Team Providers Care Clinical Counselor Name Role Phone Ricky Brooksley Carolyn SMOOTH Primary Care Provider [phone] Encounter Details Date Type Department Care Team (Late st Contact Info) Description 05/18/2021 Abstract [facility] Rheumatology [address] [place] [address] Eve Catherine RN Social History Tobacco Use Types Packs/Day [...] Info) Description 09/11/2024 8:00 EST Office Visit [facility] Rheumatology [address] [place] [address] Dhara Cehng MD [address] [facility] [address] [place] [address] documented as of this encounter Procedures Procedure Name Priority Date/Time Associated Diagnosis Comments COMPLETE BLOOD COUNT AND DIFFERENTIAL Routine 05/17/2021 C REACTIVE PROTEIN Routine 05/17/2021 COMPREHENSIVE METABOLIC PANEL (CMP) Routine 05/17/2021 documented in this encounter Results * (ABNORMAL) COMPLETE BLOOD COUNT AND DIFFERENTIAL (05/17/2021) WBC, External 9.46 4.4 - 10.8 [facility] RBC, External 4.49 4.36 - 5.78 [facility] Hemoglobin, External 15.5 13.5 - 17.5 [facility] HCT, External 46.2 40.0 - 50.0 [facility] MCV, External 102.9(A) 80 - 95 [facility] MCH, External 34.5(A) 27.0 - 33.0 [facility] MCHC, External 33.5 32.0 - 36.0 [facility] PLT, External 362 130 - 400 [facility] RDW-CV, External 13.2 11.8 - 14.1 [facility] Neutrophils, External 59.0 [facility] Lymphocytes, External 29.0 [facility] Monocytes, External 8.1 [facility] Eosinophils, External 2.9 [facility] Basophils, External 0.7 [facility] ABS Neutrophils, External 5.58 1.2 - 6.7 [facility] ABS Lymphs, External 2.74 1.2 - 3.4 [facility] ABS Monocytes, External 0.77 0.1 - 0.8 [facility] ABS Eosinophils, External 0.27 0.0 - 0.7 [facility] ABS Basophils, External 0.07 0.0 - 0.2 [facility] Blood VENOUS BLOOD / Unknown 05/17/2021 Dhara Cheng MD PACKAGES & DNA PROBE ORDERABLES [facility] * (ABNORMAL) COMPREHENSIVE METABOLIC PANEL (CMP) (05/17/2021) GFR, Calculated, External >60 60 [facility] Glucose, Serum, External 114(A) 74 - 106 [facility] Albumin, External 4.0 3.4 - 5.0 [facility] Total Alkaline Phosphatase, External 99 46 - 116 [facility] ALT, External 28 16 - 63 [facility] AST, External 18 15 - 37 [facility] BUN, External 13 7 - 18 [facility] Calculated Calcium, External [facility] Calcium, External 9.5 8.5 - 10.1 [facility] Chloride, External 105 98 - 107 [facility] CO2, External 26.8 21.0 - 32.0 [facility] Creatinine, External 0.8 0.70 - 1.30 [facility] Fasting?, External [facility] Potassium, External 4.4 3.5 - 5.1 [facility] Sodium, External 143 136 - 145 [facility] Total Protein, External 7.2 6.4 - 8.2 [facility] Bilirubin, Total, External 0.4 0.2 - 1.0 [facility] Blood VENOUS BLOOD / Unknown 05/17/2021 Dhara Cheng MD CHEMISTRY & BLOOD GA S ORDERABLES [facility] * C REACTIVE PROTEIN (05/17/2021) Pathologist [facility] C-Reactive Protein, External 0.13 0.0 - 0.3 mg/dL [facility] Blood VENOUS BLOOD / Unknown 05/17/2021 Dhara Cheng MD CHEMISTRY & BLOOD GA S ORDERABLES [facility] documented in this encounter Visit Diagnoses Not on filedocumented in this encounter Care Teams Clinical Counselor Relationship Specialty Start Date End Date Chiquita Brooks, SMOOTH PCP - General 09/29/14 documented as of this encounter
--- OUTSIDE RECORDS SUMMARY | 2024-04-21 21:01 | XMS_ITS | Encounter Summary ---
Author Organization [facility] Address [address] [place] [address] Care Team Providers Care Bristle Machine Operator Name Role Phone RafiChiquita stringer NP Primary Care Provider [phone] Reason for Visit * Reason Comments Medications Refill Encounter Details Date Type Department Care Team (Late st Contact Info) Description 09/19/2023 Refill [facility] Rheumatology [address] [place] [id number] Dhara Cheng MD [address] [facility] [address] [place] [address] Medications Refill Social History Tobacco [...] TABLETS BY MOUTH ONCE WEEKLY 72 Tablet 1 09/20/2023 02/08/2024 documented in this encounter Miscellaneous Notes * Telephone Encounter - Jared Magana, RN - 09/20/2023 0751 EST Reviewed visit notes. UTD with labs. Rx sent to requested pharmacy, per clinic refill protocol. documented in this encounter Plan of Treatment Upcoming Encounters Date Type Department Care Team (Late st Contact Info) Description 09/11/2024 8:00 EST Office Visit [facility] Rheumatology [address] [place], [place] [address] Dhara Cheng MD [address] [facility] [address] [place] [address] documented as of this encounter Visit Diagnoses Not on filedocumented in this encounter Discontinued Medications Medication Sig Discontinue Reason Start Date End Da te methotrexate 2.5 mg tablet TAKE 6 TABLETS BY MOUTH ONCE A WEEK 03/29/2023 09/20/2023 documented as of this encounter Care Teams Bristle Machine Operator Relationship Specialty Start Date End Date Chiquita Brooks NP PCP - General 09/29/14 documented as of this encounter
--- OUTSIDE RECORDS SUMMARY | 2024-04-21 21:01 | XMS_ITS | Encounter Summary ---
Author Organization [facility] Address [address] [place] [address] Care Team Providers Care Activity Aid Name Role Phone Todd Chiquita Carolyn MACHINE STOPPAGE FREQUENCY CHECKER Primary Care Provider [phone] Encounter Details Date Type Department Care Team (Late st Contact Info) Description 08/29/2022 Abstract [facility] Rheumatology [address] [place] [address] Rosenda Appiah RN Social History Tobacco Use Types Packs/Day [...] Info) Description 09/11/2024 8:00 EST Office Visit [facility] Rheumatology [address] [place] [address] Dhara Cheng MD 130 [facility] [address] [place] [address] documented as of this encounter Procedures Procedure Name Priority Date/Time Associated Diagnosis Comments COMPLETE BLOOD COUNT AND DIFFERENTIAL Routine 08/25/2022 C REACTIVE PROTEIN Routine 08/25/2022 COMPREHENSIVE METABOLIC PANEL (CMP) Routine 08/25/2022 documented in this encounter Results * (ABNORMAL) C REACTIVE PROTEIN (08/25/2022) Pathologist [facility] C-Reactive Protein, External 0.61(A) 0.0 - 0.3 mg/dL [facility] Blood VENOUS BLOOD / Unknown 08/25/2022 Dhara Cheng MD CHEMISTRY & BLOOD GA S ORDERABLES [facility] * COMPREHENSIVE METABOLIC PANEL (CMP) (08/25/2022) Pathologist [facility] GFR, Calculated, External 102.12 60 [facility] Glucose, Serum, External 93 74 - 106 [facility] Albumin, External 3.9 3.4 - 5.0 [facility] Total Alkaline Phosphatase, External 107 46 - 116 [facility] ALT, External 26 16 - 63 [facility] AST, External 25 15 - 37 [facility] BUN, External 14 7 - 18 [facility] Calculated Calcium, External [facility] Calcium, External 9.4 8.5 - 10.1 [facility] Chloride, External 105 98 - 107 [facility] CO2, External 27.8 21.0 - 32.0 [facility] Creatinine, External 0.9 0.70 - 1.30 [facility] Fasting?, External [facility] Potassium, External 4.1 3.5 - 5.1 [facility] Sodium, External 141 136 - 145 [facility] Total Protein, External 7.6 6.4 - 8.2 [facility] Bilirubin, Total, External 0.5 0.2 - 1.0 [facility] Blood VENOUS BLOOD / Unknown 08/25/2022 Dhara Cheng MD CHEMISTRY & BLOOD GA S ORDERABLES [facility] * (ABNORMAL) COMPLETE BLOOD COUNT AND DIFFERENTIAL (08/25/2022) WBC, External 11.64(A) 4.4 - 10.8 [facility] RBC, External 4.38 4.36 - 5.78 [facility] Hemoglobin, External 15.2 13.5 - 17.5 [facility] HCT, External 45.2 40.0 - 50.0 [facility] MCV, External 103(A) 80 - 95 [facility] MCH, External 34.7(A) 27.0 - 33.0 [facility] MCHC, External 33.6 32.0 - 36.0 [facility] PLT, External 366 130 - 400 [facility] RDW-CV, External 13.3 11.8 - 14.1 [facility] Neutrophils, External 60.2% [facility] Lymphocytes, External 26.9% [facility] Monocytes, External 9.2% [facility] Eosinophils, External 2.7% [facility] Basophils, External 0.7% [facility] ABS Neutrophils, External 7.01(A) 1.2 - 6.7 [facility] ABS Lymphs, External 3.13 1.2 - 3.4 [facility] ABS Monocytes, External 1.07(A) 0.1 - 0.8 [facility] ABS Eosinophils, External 0.31 0.0 - 0.7 [facility] ABS Basophils, External 0.08 0.0 - 0.2 [facility] Blood VENOUS BLOOD / Unknown 08/25/2022 Dhara Cheng MD PACKAGES & DNA PROBE ORDERABLES [facility] documented in this encounter Visit Diagnoses Not on filedocumented in this encounter Care Teams Activity Aid Relationship Specialty Start Date End Date Chiquita Brooks, SMOOTH PCP - General 09/29/14 documented as of this encounter
--- OUTSIDE RECORDS SUMMARY | 2024-04-21 21:01 | XMS_ITS | Encounter Summary ---
Author Organization [facility] Address [address] [place] [address] Care Team Providers Care Quality Assurance Manager Name Role Phone Chiquita Brooks NP Primary Care Provider [phone] Reason for Visit * Laboratory Services (Routine/Next Available) - Order Cancelled Specialty Diagnoses / Procedures Referred By Contac t Referred To Contact Diagnoses Seropositive rheumatoid arthritis of multiple sites ([facility]) High risk medication use Procedures COMPREHENSIVE METABOLIC PANEL (CMP) Dhara Cheng MD [address] [facility] [place] [address] Referral ID Status Reason Start Date Expiration Date V isits Requested Visits Authorized [id number] Order Cancelled 05/10/2021 6 6 Encounter Details Date Type Department Care Team (Late st Contact Info) Description 10/27/2021 8:50 EDT Phlebotomy Only [facility] - Outpatient Phlebotomy Drawing [address] [phone] Lab, [facility] Op Phlebotomy Seropositive rheumatoid arthritis of multiple sites ([facility]) ([facility]); High risk medication use Social History Tobacco [...] as of this encounter Miscellaneous Notes * Result Encounter Note - Dhara Cheng MD - 10/27/2021 0850 EDT Please call Ponce and let him know his labs are good -- no significant changes. Thanks. documented in this encounter Plan of Treatment Upcoming Encounters Date Type Department Care Team (Late st Contact Info) Description 09/11/2024 8:00 EST Office Visit [facility] Rheumatology [address] [place] [address] Dhara Cheng MD [address] [place] [phone] documented as of this encounter Procedures Procedure Name Priority Date/Time Associated Diagnosis Comments COMPLETE BLOOD COUNT AND DIFFERENTIAL Routine 10/27/2021 8:58 EDT Seropositive rheumatoid arthritis of multiple sites ([facility]) ([facility]) High risk medication use C REACTIVE PROTEIN Routine 10/27/2021 8: 58 EDT Seropositive rheumatoid arthritis of multiple sites ([facility]) ([facility]) High risk medication use COMPREHENSIVE METABOLIC PANEL (CMP) Routine 10/27/2021 8:58 EDT Seropositive rheumatoid arthritis of multiple sites ([facility]) ([facility]) High risk medication use documented in this encounter Results * C REACTIVE PROTEIN (10/27/2021 8:58 EDT) C-Reactive Protein 7.0 <10.0 mg/L 10/27/2021 10:[address] [facility] Blood VENOUS BLOOD / Unknown Venipuncture / Unknown 10/27/2021 8:58 EDT 10/27/2021 10:14 EDT Dhara Cheng MD CHEMISTRY & BLOOD GA S ORDERABLES [facility] [address] [place] [address] * (ABNORMAL) COMPLETE BLOOD COUNT AND DIFFERENTIAL (10/27/2021 8:58 EDT) WBC 10.38 4.00 - 10.40 K/cmm 10/27/2021 10:39 [facility] RBC 4.17(L) 4.36 - 5.78 M/cmm 10/27/2021 10:39 [facility] Hemoglobin 14.8 13.8 - 17.3 gm/dL 10/27/2021 10:39 [facility] HCT 43.1 39.5 - 50.2 % 10/27/2021 10:39 [facility] MCV 103(H) 81 - 95 fl 10/27/2021 10:39 [facility] MCH 35.5(H) 27.6 - 33.0 pg 10/27/2021 10:39 [facility] MCHC 34.3 32.8 - 36.4 gm/dL 10/27/2021 10:39 [facility] RDW-CV 13.6 <14.2 % 10/27/2021 10:39 [facility] RDW-SD 51.3(H) <46.0 fl 10/27/2021 10:39 [facility] PLT 353 141 - 377 K/cmm 10/27/2021 10:39 [facility] MPV 9.4(L) 9.5 - 12.7 fl 10/27/2021 10:39 [facility] % Neutrophils 62.7 % 10/27/2021 10:39 [facility] % Lymphocytes 22.4 % 10/27/2021 10:39 [facility] % Monocytes 10.6 % 10/27/2021 10:39 [facility] % Eosinophils 2.9 % 10/27/2021 10:39 [facility] % Basophils 0.9 % 10/27/2021 10:39 [facility] % Immature Grans 0.5 % 10/28/19 10:39 [facility] Absolute Neutrophils 6.52 2.20 - 8.85 K/cmm 10/27/2021 10:39 [facility] Absolute Lymphocytes 2.32 1.09 - 3.30 K/cmm 10/27/2021 10:39 [facility] Absolute Monocytes 1.10(H) 0.10 - 0.80 K/cmm 10/27/2021 10:39 [facility] Absolute Eosinophils 0.30 0.03 - 0.61 K/cmm 10/27/2021 10:39 [facility] ABS Basophils 0.09 0.01 - 0.11 K/cmm 10/27/2021 10:39 [facility] Absolute Immature Grans 0.05 0.00 - 0.06 K/cmm 10/27/2021 10:39 [facility] Type of Differential: Auto 10/27/2021 10:39 [facility] Blood VENOUS BLOOD / Unknown Venipuncture / Unknown 10/27/2021 8:58 EDT 10/27/2021 10:36 EDT Dhara Cheng MD PACKAGES & DNA PROBE ORDERABLES [facility] [address] [place] [address] * COMPREHENSIVE METABOLIC PANEL (CMP) (10/27/2021 8:58 EDT) Sodium 143 136 - 145 mmol/L 10/27/2021 10:48 [facility] Potassium 4.6 3.5 - 5.0 mmol/L 10/27/2021 10:48 [facility] Chloride 105 96 - 110 mmol/L 10/27/2021 10:48 [facility] CO2 Total 26 22 - 32 mmol/L 10/27/2021 10:48 [facility] Glucose 86 70 - 100 mg/dL 10/27/2021 10:48 [facility] BUN 14 10 - 26 mg/dL 10/27/2021 10:48 [facility] Creatinine 0.78 0.66 - 1.25 mg/dL 10/27/2021 10:48 [facility] eGFR 107 >60 mL/min/1.7 3m2 10/27/2021 10:48 [facility] Total Protein 7.1 6.3 - 8.2 g/dL 10/27/2021 10:48 [facility] Albumin 4.1 3.4 - 4.9 g/dL 10/27/2021 10:48 [facility] Alkaline Phosphatase 86 38 - 126 U/L 10/27/2021 10:48 [facility] AST 26 15 - 46 U/L 10/27/2021 10:48 [facility] ALT 17 <50 U/L 10/27/2021 10:48 [facility] Bilirubin, Total 0.3 <1.4 mg/dL 10/28/19 10:48 [facility] Calcium 9.2 8.5 - 10.5 mg/dL 10/27/2021 10:48 [facility] Albumin/Globulin Ratio 1.4 1.0 - 2.5 10/27/2021 10:48 [facility] Anion Gap 12 5 - 14 10/27/2021 10:48 [facility] Blood VENOUS BLOOD / Unknown Venipuncture / Unknown 10/27/2021 8:58 EDT 10/27/2021 10:14 EDT Dhara Cheng MD CHEMISTRY & BLOOD GA S ORDERABLES [facility] [address] [place] [address] documented in this encounter Visit Diagnoses Diagnosis Seropositive rheumatoid arthritis of multiple sites ([facility]) High risk medication use Encounter for long-term (current) use of other medications documented in this encounter Care Teams Quality Assurance Manager Relationship Specialty Start Date End Date Chiquita Brooks NP PCP - General 09/29/14 documented as of this encounter
--- OUTSIDE RECORDS SUMMARY | 2024-04-21 21:01 | XMS_ITS | Encounter Summary ---
Author Organization [facility] Address [address] [place] [address] Care Team Providers Care Cardiovascular Surgical Tech Name Role Phone RafiChiquita stringer NP Primary Care Provider [phone] Reason for Visit * Reason Comments Follow-up RA Encounter Details Date Type Department Care Team (Latest Contact Info) Description 12/22/2019 15:30 EDT Telemedicine [facility] Rheumatology [address] [place] [address] Dhara Cheng MD [address] [facility] [address] [place] [address] Seropositive rheumatoid arthritis (HCC-CMS) (Primary Dx); Long-term use of immunosuppressant medication Social History Tobacco Use Types Packs/Day Years Used Date Smoking Tobacco: Every Day Cigarettes Smokeless Tobacco: Never Comments:just over 1 pk per day Sex and Gender Information Value Date Recorded Sex Assigned at Not on file Gender Identity Male 08/13/2019 8:28 EST Sexual Orientation Not on file documented as of this encounter Ordered Prescriptions Prescription Sig Dispensed Refills Start Date End Da te hydrOXYchloroQUINE (PLAQUENIL) 200 mg tablet 1 tab(s) orally once daily 90 Tab 3 12/22/2019 12/14/2020 documented in this encounter Progress Notes * Dhara Cheng MD - 12/22/2019 1530 EDT [facility] [place] Verbal consent: The concept of ???Telemedicine?? has been described to the patient. Patient has been informed of the anticipated benefits and possible risks. Patient understands the information provided regarding telemedicine, has had the opportunity to ask questions about this information, and all questions havebeen answered to patient???s satisfaction. Patient consents for the use of telemedicine in his/her medical care and authorizes the transmission of any relevant medical information to providers and their staff involved in patient???s medical or mental health care. Verbal consent obtained by myself or auxiliary staff: yes. Subjective: Chief Complaint(s): Follow-up (RA) HPI: Seropositive RA. Ponce has signs and [...] is improving significantly. ? INTERVAL HISTORY: Ponce says he is doing well. Says he stopped MTX for 2-3 weeks due to fear about COVID. Is back on for past 3 weeks. Says he is didn't have a flare up during this time. I have reviewed patient's tobacco history: reports that he has been smoking. He has been smoking about 1.00 pack per day. He has never used smokeless tobacco. I have reviewed current problem list and current medications. ROS: Review of Systems Constitutional: Negative for weight loss. Respiratory: Negative for cough and shortness of breath. Gastrointestinal: Negative for abdominal pain and heartburn. Skin: Negative for rash. Notes when he was off MTX for a few weeks, the lymphomatoid papulosis flared up. Is due for eye exam for HCQ monitoring. Says there is a wait for appointment but he'll get this done. Has been working throughout the pandemic. Works mostly by himself in the [employer]. Objective: Examination: Home Vitals: Pain 2/10 right shoulder -- thinks he overworked it today There were no vitals taken for this visit. Pertinent exam findings: speaking in full sentences, no audible wheeze and mood and affect appropriate Data reviewed with patient: Reviewed and/or ordered active problem list, medication list, social history, notes from last encounter, lab results tests Abstract on 12/18/2019 Component Date Value Ref [...] - 5.0 Final ??? Total Alkaline Phosphatase, Lead Burner Apprentice* 12/17/2019 106 46 - 116 Final ??? [...] External 12/17/2019 0.61* 0.0 - 0.3 Final Assessment & Plan: 1. Seropositive rheumatoid arthritis ([facility]) Low RA disease activity based on history and lab results. 2. Long-term use of immunosuppressant medication No sign of adverse effects of DMARD therapy. MCV mildly increased, chronic, stable. --Labs prior to next visit. --Eye exam for HCQ monitoring is due. Patient initiated phone contact with the office: yes. Patient is an established patient (parent, guardian) yes. E/M provided within previous 7 days for same medical assessment: no Anticipate E/M service within 24hrs or next available urgent appointment no. This visit was conducted by telephone. A total of 11 minutes was spent on this encounter on the dayof this encounter. Follow up in 4 months. documented in this encounter Plan of Treatment Upcoming Encounters Date Type Department Care Team (Late st Contact Info) Description 09/11/2024 8:00 EST Office Visit [facility] Rheumatology [address] [place] [address] Dhara Cheng MD [address] [facility] [place] [phone] documented as of this encounter Visit Diagnoses Diagnosis Seropositive rheumatoid arthritis ([facility])- Primary Rheumatoid arthritis Long-term use of immunosuppressant medication Encounter for long-term (current) use of other medications documented in this encounter Discontinued Medications Medication Sig Discontinue Reason Start Date End Da te aspirin 81 mg EC tablet 1 tab(s) orally once a day Patient Stopped Taking 12/22/2019 hydroxychloroquine (PLAQUENIL) 200 mg tablet 1 tab(s) orally once daily Reorder 08/15/2019 12/22/2019 documented as of this encounter Care Teams Cardiovascular Surgical Tech Relationship Specialty Start Date End Date Chiquita Brooks NP PCP - General 09/29/14 documented as of this encounter
--- OUTSIDE RECORDS SUMMARY | 2024-04-21 21:01 | XMS_ITS | Encounter Summary ---
Author Organization [facility] Address [address] [place] [address] Care Team Providers Care Machine Ironer Name Role Phone Rafisiomara Chiquita Leon NP Primary Care Provider [phone] Reason for Visit * Reason Comments Medications Refill Encounter Details Date Type Department Care Team (Late st Contact Info) Description 03/28/2023 Refill [facility] Rheumatology [address] [place] [phone] Dhara Cheng MD [address] [facility] [place] [address] Medications Refill Social History Tobacco [...] 6 TABLETS BY MOUTH ONCE A WEEK 72 Tablet 1 03/29/2023 09/20/2023 documented in this encounter Miscellaneous Notes * Telephone Encounter - Eve Catherine RN - 03/29/2023 0877 EDT Last visit note reviewed and follow up scheduled for 05/08/23. Labs up to date. Refill sent as noted. documented in this encounter Plan of Treatment Upcoming Encounters Date Type Department Care Team (Late st Contact Info) Description 09/11/2024 8:00 EST Office Visit [facility] Rheumatology [address] [place], [place] [phone] Dhara Cheng MD [address] [facility] [address] [place] [phone] documented as of this encounter Visit Diagnoses Not on filedocumented in this encounter Discontinued Medications Medication Sig Discontinue Reason Start Date End Da te methotrexate 2.5 mg tablet Take 6 tabs one day a week. 10/10/2022 03/29/2023 documented as of this encounter Care Teams Machine Ironer Relationship Specialty Start Date End Date Chiquita Brooks NP PCP - General 09/29/14 documented as of this encounter
--- OUTSIDE RECORDS SUMMARY | 2024-04-21 21:01 | XMS_ITS | Encounter Summary ---
Author Organization [facility] Address [address] [place] [address] Care Team Providers Care Forms Analysis Manager Name Role Phone RafiChiquita stringer NP Primary Care Provider [phone] Reason for Visit * Reason Onset Date Comments Medications Refill 12/14/2021 Encounter Details Date Type Department Care Team (Late st Contact Info) Description 12/14/2021 Refill [facility] Rheumatology [address] [place] [address] Dhara Cheng MD [address] [facility] [address] [place] [address] Medications Refill Social History Tobacco [...] orally once a day 90 Tablet 3 12/14/2021 10/10/2022 methotrexate 2.5 mg tablet Take 6 tabs one day a week. 72 Tablet 1 12/14/2021 10/10/2022 hydrOXYchloroQUINE (PLAQUENIL) 200 mg tablet TAKE ONE TABLET BY MOUTH EVERY DAY 90 Tablet 3 12/14/2021 10/10/2022 documented in this encounter Miscellaneous Notes * Telephone Encounter - Rosenda Appiah RN - 12/14/2021 1700 EDT Last visit note reviewed. Labs up to date and follow up notd. Refills sent per protocol. * Telephone Encounter - Doretha Castro - 12/14/2021 1649 EDT Medication(s) Requested folic acid (FOLVITE) 1 mg tablet methotrexate 2.5 mg tablet hydrOXYchloroQUINE (PLAQUENIL) 200 mg tablet [id number]?[phone] Next Visit Date 03/30/2022 Out of Medication? No Doretha Castro 12/14/2021 16:49 documented in this encounter Plan of Treatment Upcoming Encounters Date Type Department Care Team (Late st Contact Info) Description 09/11/2024 8:00 EST Office Visit [facility] Rheumatology [address] [place], [place] [phone] Dhara Cheng MD [address] [facility] [place] [address] documented as of this encounter Visit Diagnoses Not on filedocumented in this encounter Discontinued Medications Medication Sig Discontinue Reason Start Date End Da te hydrOXYchloroQUINE (PLAQUENIL) 200 mg tablet TAKE ONE TABLET BY MOUTH EVERY DAY Reorder 12/14/2020 12/14/2021 methotrexate 2.5 mg tablet TAKE 6 TABLETS BY MOUTH EVERY WEEK Reorder 09/12/2021 12/14/2021 folic acid (FOLVITE) 1 mg tablet 1 tab(s) orally once a day Reorder 12/17/2020 12/14/2021 documented as of this encounter Care Teams Forms Analysis Manager Relationship Specialty Start Date End Date Chiquita Brooks NP PCP - General 09/29/14 documented as of this encounter
--- OUTSIDE RECORDS SUMMARY | 2024-04-21 21:02 | XMS_ITS | Encounter Summary ---
Author Organization [facility] Address [address] [place] [address] Care Team Providers Care Manager Insurance Name Role Phone Todd Chiquita Carolyn SMOOTH Primary Care Provider [phone] Reason for Visit * Reason Onset Date Comments Medications Refill 10/23/2019 Received a fa xed refill request for MTX from [facility] in [facility] Encounter Details Date Type Department Care Team (Late Contact Info) Description 10/23/2019 Telephone [facility] Rheumatology [address] [place] [address] Rosenda Appiah RN Medications Refill (Received a faxed refill request for MTX from [facility] in [facility]) Social History Tobacco Use Types Packs/Day Years Used Date Smoking Tobacco: Every Day Cigarettes Smokeless Tobacco: Never Comments:just over 1 pk per day Sex and Gender Information Value Date Recorded Sex Assigned at Not on file Gender Identity Male 08/13/2019 8:28 EST Sexual Orientation Not on file documented as of this encounter Miscellaneous Notes * Telephone Encounter - Rosenda Appiah RN - 10/23/2019 0938 EDT Last visit note reviewed and follow up noted 12/22/19 and labs up to date. Refill sent as noted. documented in this encounter Plan of Treatment Upcoming Encounters Date Type Department Care Team (Late Contact Info) Description 09/11/2024 8:00 EST Office Visit [facility] Rheumatology [address] [place] [address] Dhara Cheng MD [address] [facility] [address] [place] [address] documented as of this encounter Visit Diagnoses Not on filedocumented in this encounter Care Teams Manager Insurance Relationship Specialty Start Date End Date Chiquita Brooks NP PCP - General 09/29/14 documented as of this encounter
--- OUTSIDE RECORDS SUMMARY | 2024-04-21 21:02 | XMS_ITS | Encounter Summary ---
Author Organization [facility] Address [address] [place] [address] Care Team Providers Care Acetylene Torch Burner Name Role Phone Chiquita Brooks SMOOTH Primary Care Provider [phone] Encounter Details Date Type Department Care Team (Late st Contact Info) Description 10/16/2014 Historical Results Only [facility] Radiology Results [address] [place] [address] Dhara Cheng MD [address] [place] [address] [address] Social History Tobacco Use Types Packs/Day Years Used Date Smoking Tobacco: Never Assessed Sex and Gender Information Value Date Recorded Sex Assigned at Not on file Gender Identity Male 08/13/2019 8:28 EST Sexual Orientation Not on file documented as of this encounter Plan of Treatment Upcoming Encounters Date Type Department Care Team (Late st Contact Info) Description 09/11/2024 8:00 EST Office Visit [facility] Rheumatology [address] [place], [place] [address] Dhara Cheng MD [address] [place] [address] [address] documented as of this encounter Procedures Procedure Name Priority Date/Time Associated Diagnosis Comments XR RHEUMATOLOGY BILATERAL FEET 2 VIEWS EACH FOOT 10/16/2014 11:59 EDT XR RHEUMATOLOGY BILATERAL HANDS 2 VIEWS EACH HAND 10/16/2014 11:59 EDT documented in this encounter Results * XR RHEUMATOID FEET (10/16/2014 11:59 EDT) Anatomical Region Laterality Modality Other 10/16/2014 11:5 9 EDT Narrative 10/16/2014 12:07 EDT ? EXAM: RADIOLOGY/RHEUMATOID [id number] EX. D/ ([id number]) ? CLINICAL INFORMATION: ? RHEUMATOID PAIN IN HANDS. DONE AT [facility] ? X-RAY FEET AND HANDS ? Comparison: None. ? Indication: Rheumatoid pain in hands ? Findings: ? FEET: AP views of the right and left foot were obtained. There are ? mild degenerative changes of the 1st MTP joint signified by ? subchondral sclerosis and small osteophyte formation. Alignment is ? anatomic. No fracture is noted. Bone mineralization is normal. ? HANDS: AP and ball catcher views of the right and left hand were ? performed. Alignment of the hand is anatomic. No fracture is noted. ? There are degenerative changes of the 1st CMC joint as well as the ? radial carpal joint. Rounded lucencies within the right scaphoid may ? represent geodes. Bone mineralization is normal. ? Impression: ? 1. 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 ? 2. 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 ? REPORT SIGNED IN OTHER VENDOR SYSTEM 10/16/2014 ?Reported By: Isis Prieto MD ? CC: ? Transcribed Date/Time: 10/16/2014 (1207) ? Spectroscopist: HIS.POWSCR ? Printed Date/Time: 12/24/2018 (5483) ? PAGE 1 ? Signed Report ? Procedure Note Unknown, Doctor - 08/05/2019 EXAM: RADIOLOGY/RHEUMATOID [id number] EX. D/ ([id number]) CLINICAL INFORMATION: RHEUMATOID PAIN IN HANDS. DONE AT [facility] X-RAY FEET AND HANDS Comparison: None. Indication: Rheumatoid pain in hands Findings: FEET: AP views of the right and left foot were obtained. There are mild degenerative changes of the 1st MTP joint signified by subchondral sclerosis and small osteophyte formation. Alignment is anatomic. No fracture is noted. Bone mineralization is normal. HANDS: AP and ball catcher views of the right and left hand were performed. Alignment of the hand is anatomic. No fracture is noted. There are degenerative changes of the 1st CMC joint as well as the radial carpal joint. Rounded lucencies within the right scaphoidmay represent geodes. Bone mineralization is normal. Impression: 1. 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 2. 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 REPORT SIGNED IN OTHER VENDOR SYSTEM 10/16/2014 Reported By: Isis Prieto MD CC: Transcribed Date/Time: 10/16/2014 (7747) Spectroscopist: Printed Date/Time: 12/24/2018 (8327) PAGE 1 Signed Report Dhara Cheng MD IMG DIAGNOSTIC IMAGI NG ORDERABLES * XR RHEUMATOID HANDS (10/16/2014 11:59 EDT) Anatomical Region Laterality Modality Upper Extremities Other 10/16/2014 11:5 9 EDT Narrative 10/16/2014 12:07 EDT ? EXAM: RADIOLOGY/RHEUMATOID [id number] EX. D/ ([id number]) ? CLINICAL INFORMATION: ? RHEUMATOID PAIN IN HANDS. DONE AT [facility] ? X-RAY FEET AND HANDS ? Comparison: None. ? Indication: Rheumatoid pain in hands ? Findings: ? FEET: AP views of the right and left foot were obtained. There are ? mild degenerative changes of the 1st MTP joint signified by ? subchondral sclerosis and small osteophyte formation. Alignment is ? anatomic. No fracture is noted. Bone mineralization is normal. ? HANDS: AP and ball catcher views of the right and left hand were ? performed. Alignment of the hand is anatomic. No fracture is noted. ? There are degenerative changes of the 1st CMC joint as well as the ? radial carpal joint. Rounded lucencies within the right scaphoid may ? represent geodes. Bone mineralization is normal. ? Impression: ? 1. 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 ? 2. 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 ? REPORT SIGNED IN OTHER VENDOR SYSTEM 10/16/2014 ?Reported By: Isis Prieto MD ? CC: ? Transcribed Date/Time: 10/16/2014 (1207) ? Spectroscopist: ? Printed Date/Time: 12/24/2018 (1153) ? PAGE 1 ? Signed Report ? Procedure Note Unknown, Doctor - 08/05/2019 EXAM: RADIOLOGY/RHEUMATOID [id number] EX. D/ ([id number]) CLINICAL INFORMATION: RHEUMATOID PAIN IN HANDS. DONE AT [facility] X-RAY FEET AND HANDS Comparison: None. Indication: Rheumatoid pain in hands Findings: FEET: AP views of the right and left foot were obtained. There are mild degenerative changes of the 1st MTP joint signified by subchondral sclerosis and small osteophyte formation. Alignment is anatomic. No fracture is noted. Bone mineralization is normal. HANDS: AP and ball catcher views of the right and left hand were performed. Alignment of the hand is anatomic. No fracture is noted. There are degenerative changes of the 1st CMC joint as well as the radial carpal joint. Rounded lucencies within the right scaphoidmay represent geodes. Bone mineralization is normal. Impression: 1. 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 2. 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 REPORT SIGNED IN OTHER VENDOR SYSTEM 10/16/2014 Reported By: Isis Prieto MD CC: Transcribed Date/Time: 10/16/2014 (6775) Spectroscopist: Printed Date/Time: 12/24/2018 (9911) PAGE 1 Signed Report Dhara Cheng MD IMG DIAGNOSTIC IMAGI NG ORDERABLES documented in this encounter Visit Diagnoses Not on filedocumented in this encounter Care Teams Acetylene Torch Burner Relationship Specialty Start Date End Date Chiquita Brooks NP PCP - General 09/29/14 documented as of this encounter
--- OUTSIDE RECORDS SUMMARY | 2024-04-21 21:02 | XMS_ITS | Encounter Summary ---
Author Organization [facility] Address [address] [place] [address] Care Team Providers Care Business Process Engineer Name Role Phone Chiquita Brooks SMOOTH Primary Care Provider Encounter Details Date Type Department Care Team (Late st Contact Info) Description 10/15/[address] [facility] Radiology Results [address] [place] [address] Dhara Cheng MD [address] [place] [address] [phone] Social History Tobacco Use Types [...] Description 09/11/2024 8:[address] [facility] Rheumatology [address] [place], [place] [address] Dhara Cheng MD [address] [place] [address] [phone] documented as of this encounter Procedures Procedure Name Priority Date/Time Associated Diagnosis Comments XR RHEUMATOLOGY BILATERAL FEET 2 VIEWS EACH FOOT 10/15/2014 14:14 EDT XR RHEUMATOLOGY BILATERAL HANDS 2 VIEWS EACH HAND 10/15/2014 14:14 EDT documented in this encounter Results * XR RHEUMATOID FEET (10/15/2014 14:14 EDT) Anatomical Region Laterality Modality Other 10/15/2014 14:1 4 EDT Narrative 10/16/2014 11:59 EDT ? EXAM: RADIOLOGY/RHEUMATOID [id number] EX. D/ ([id number]) ? CLINICAL INFORMATION: ? [...] CC: ? Transcribed Date/Time: 10/16/2014 (1207) ? Nephrology Nurse: HIS.POWSCR ? Printed Date/Time: 12/24/2018 (9358) ? PAGE 1 ? Signed Report ? Procedure Note Unknown, Doctor - 08/05/2019 EXAM: RADIOLOGY/RHEUMATOID [id number] EX. D/ ([id number]) CLINICAL INFORMATION: RHEUMATOID PAIN IN HANDS. DONE [...] Isis Prieto MD CC: Transcribed Date/Time: 10/16/2014 (3597) Nephrology Nurse: Printed Date/Time: 12/24/2018 (2770) PAGE 1 Signed Report Dhara Cheng MD IMG DIAGNOSTIC IMAGI NG ORDERABLES * XR RHEUMATOID HANDS (10/15/2014 14:14 EDT) Anatomical Region Laterality Modality Upper Extremities Other 10/15/2014 14:1 4 EDT Narrative 10/16/2014 11:59 EDT ? EXAM: RADIOLOGY/RHEUMATOID [id number] EX. D/ ([id number]) ? CLINICAL INFORMATION: ? RHEUMATOID PAIN IN [...] CC: ? Transcribed Date/Time: 10/16/2014 (1207) ? Nephrology Nurse: ? Printed Date/Time: 12/24/2018 (1153) ? PAGE 1 ? Signed Report ? Procedure Note Unknown, Doctor - 08/05/2019 EXAM: RADIOLOGY/RHEUMATOID [id number] EX. D/ ([id number]) CLINICAL INFORMATION: RHEUMATOID PAIN IN HANDS. DONE [...] Isis Prieto MD CC: Transcribed Date/Time: 10/16/2014 (9629) Nephrology Nurse: Printed Date/Time: 12/24/2018 (2837) PAGE 1 Signed Report Dhara Cheng MD IMG DIAGNOSTIC IMAGI NG ORDERABLES documented in this encounter Visit Diagnoses Not on filedocumented in this encounter Care Teams Business Process Engineer Relationship Specialty Start Date End Date Chiquita Brooks NP PCP - General 09/29/14 documented as of this encounter
--- OUTSIDE RECORDS SUMMARY | 2024-04-21 21:02 | XMS_ITS | Encounter Summary ---
Author Organization [facility] Address [address] [place] [address] Care Team Providers Care Compressor Technician Name Role Phone Chiquita Brooks NP Primary Care Provider [phone] Reason for Visit * Reason Comments Follow-up Patient c/o left mir ulder pain. Patient states he is unsure if it is from the arthritis or if it is from overuse from work. Encounter Details Date Type Department Care Team (Latest Contact Info) Description 08/14/2019 8:00 EST Office Visit [facility] Rheumatology [address] [place] [address] Dhara Cheng MD [address] [facility] [address] [place] [address] Seropositive rheumatoid arthritis ([facility]) (Primary Dx); Long-term use of immunosuppressant medication; Acute pain of left shoulder Social History Tobacco Use Types Packs/Day Years [...] Sign Reading Time Taken Comments Blood Pressure 138/80 08/14/2019 0758 EST Pulse 64 08/14/2019 0758 EST Temperature - - Respiratory Rate - - Oxygen Saturation - - Inhaled Oxygen Concentration - - Weight 86.5 kg (190 lb 12.8 oz) 08/14/2019 0758 EST Height 172.7 cm (5' 8) 08/14/2019 0758 EST Body Mass Index 29.01 08/14/2019 0758 EST documented in this encounter Patient Instructions * Patient Instructions* Dhara Cheng MD - 08/14/2019 8:00 EST --Rest your shoulder. Let me know if it's not improving. --Labs prior to next visit --Try to work on reducing the tobacco use. Look into smoking cessation class at [facility]. documented in this encounter Progress Notes * Dhara Chneg MD - 08/14/2019 0800 EST [facility] Rheumatology Chief Complaint Patient presents with ??? Follow-up Patient c/o left shoulder pain. Patient states he is unsure if it is from the arthritis or if it isfrom overuse from work. HPI: Ponce has signs and symptoms suggesting rheumatoid arthritis. CCP>250, RF 1510, RACH 160 centromere pattern, mildly low C4 complement, negative dsDNA, negative anti-PHILIP. No significant erosive disease on plain films of hands/feet. With the positive RACH with centromere pattern, it is possible thathe may develop an overlap syndrome. Started MTX in 02/2018, added to HCQ, and he is improving significantly. ? INTERVAL HISTORY: Ponce returns for 4 month follow up. No medication changes were made at the last visit. Ponce has an acute onset of left shoulder pain as of yesterday. 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 The saw weighs 10 pounds. He says this has happened to him in the past, and usually the shoulder pain resolves after a few days. Otherwise, Ponce has not had any joint flares or any significant joint pain. He has chronic, intermittent right knee discomfort; the medial aspect of the knee is tender. Worse when riding to work. Movement helps. Current Outpatient Medications: aspirin 81 mg EC tablet folic acid (FOLVITE) 1 mg tablet hydroxychloroquine (PLAQUENIL) 200 mg tablet methotrexate 2.5 mg tablet valACYclovir (VALTREX) 500 mg tablet No current [...] Smoking just over a pack per day. Realizes he needs to cut down/quit. Review of Systems: Denies shortness of breath, chest pain or rash. 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 Says weight is stable. Physical Examination: BP 138/80 Pulse 64 Ht 172.7 cm (68) Wt 86.5 kg (190 lb 12.8 oz) BMI 29.01 kg/m?? EYES: Conjunctivae not injected NECK: Reduced lateral rotation of neck when looking to his left, with discomfort. NO lymphadenopathy. LUNGS: Clear to auscultation bilaterally. CARDIOVASCULAR: Regular rate and rhythm. No murmur. No peripheral edema. JOINT EXAM: ??No synovitis of wrists, finger or toe joints; full passive painless flexion of digits. Mild reduction in right shoulder internal and external rotation, with mild discomfort with internal rotation, chronic. Left shoulder with moderate reduction in abduction and internal rotation with di scomfort; passive ROM is also reduced. Mild bilateral flexion contractures of elbows. Reduction in external rotation of right more than left hip, without groin pain. No effusion of either knee; knee flexion is full; mild tenderness right medial knee. SKIN: No rash on arms, legs. No nail pitting. No dilated capillary loops in the nail beds. Labs: Abstract on 08/14/2019 Component Date Value Ref Range Status ??? C-Reactive Protein, External 08/10/2019 0.24 0.0 - 0.3 Final ? ? GFR, Calculated, External 08/10/2019 >60 Final ??? Glucose, Serum, External 08/10/2019 117* 74 - 106 Final ??? Albumin, External 08/10/2019 3.8 3.4 - 5.0 Final ??? Total Alkaline Phosphatase, Vessel Slag Worker* 08/10/2019 102 46 - 116 Final ??? ALT, External 08/10/2019 26 16 - 63 Final ??? AST, External 08/10/2019 21 15 - 37 Final ??? BUN, External 08/10/2019 18 7 - 18 Final ??? Calcium, External 08/10/2019 9.4 8.5 - 10.1 Final ??? Chloride, External 08/10/2019 105 98 - 107 Final ??? CO2, External 08/10/2019 28.3 21.0 - 32.0 Final ??? Creatinine, External 08/10/2019 0.88 0.70 - 1.30 Final ??? Potassium, External 08/10/2019 4.4 3.5 - 5.1 Final ??? Sodium, External 08/10/2019 142 136 - 145 Final ??? Total Protein, External 08/10/2019 6.9 6.4 - 8.2 Final ??? Bilirubin, Total, External 08/10/2019 0.5 0.2 - 1.0 Final ??? WBC, External 08/10/2019 8.55 4.4 - 10.8 Final ??? RBC, External 08/10/2019 4.33* 4.50 - 6.00 Final ??? Hemoglobin, External 08/10/2019 15.6 13.5 - 17.5 Final ??? HCT, External 08/10/2019 43.7 40.0 - 50.0 Final ??? MCV, External 08/10/2019 100.9* 80 - 95 Final ??? MCH, External 08/10/2019 36.0* 27.0 - 33.0 Final ??? MCHC, External 08/10/2019 35.7 32.0 - 36.0 Final ??? PLT, External 08/10/2019 373 130 - 400 Final ??? RDW-CV, External 08/10/2019 13.4 11.8 - 14.1 Final ??? Neutrophils, External 08/10/2019 57.7 Final ??? Lymphocytes, External 08/10/2019 29.1 Final ??? Monocytes, External 08/10/2019 8.9 Final ??? Eosinophils, External 08/10/2019 3.4 Final ??? Basophils, External 08/10/2019 0.8 Final ??? ABS Neutrophils, External 08/10/2019 4.93 1.2 - 6.7 Final ??? ABS Lymphs, External 08/10/2019 2.49 1.2 - 3.4 Final ??? ABS Monocytes, External 08/10/2019 0.76* 0.11 - 0.7 Final ??? ABS Eosinophils, External 08/10/2019 0.29 0.0 - 0.7 Final ??? ABS Basophils, External 08/10/2019 0.07 0.0 - 0.2 Final Diagnosis / Assessment: 1. Seropositive rheumatoid arthritis ([facility]) Doing well. Labs wnl. Currently with left shoulder pain from overuse at work yesterday. 2. Long-term use of immunosuppressant medication No sign of adverse effects of DMARDs. 3. Acute pain of left shoulder See above. Recommendations/Evaluation: --Will give the left shoulder a few days to see if improving. If not improving, will reassess. Ideally, if Ponce is able to avoid the type of work requiring use of the saw/overuse, which is probably difficult. --Labs prior to next visit --We discussed trying to reduce tobacco use. Dhara Cheng MD 08/14/2019 8:06 documented in this encounter Plan of Treatment Upcoming Encounters Date Type Department Care Team (Late st Contact Info) Description 09/11/2024 8:00 EST Office Visit [facility] Rheumatology [address] [place] [address] Dhara Cheng MD [address] [facility] [address] [place] [phone] documented as of this encounter Visit Diagnoses Diagnosis Seropositive rheumatoid arthritis ([facility])- Primary Rheumatoid arthritis Long-term use of immunosuppressant medication Encounter for long-term (current) use of other medications Acute pain of left shoulder documented in this encounter Historical Medications * This list may reflect changes made after this encounter. Medication Sig Dispensed Refills Start Date End Date valACYclovir (VALTREX) 500 mg tablet 1 tab(s) orally every morning aspirin 81 mg EC tablet 1 tab(s) orally once a day 12/22/2019 folic acid (FOLVITE) 1 mg tablet 1 tab(s) orally once a day 03/05/2018 11/24/2019 hydroxychloroquine (PLAQUENIL) 200 mg tablet 1 tab(s) orally once daily 07/14/2015 08/15/2019 methotrexate 2.5 mg tablet 6 tabs orally once a week 03/05/2018 10/23/2019 added in this encounter Care Teams Compressor Technician Relationship Specialty Start Date End Date Chiquita Brooks NP PCP - General 09/29/14 documented as of this encounter
--- OUTSIDE RECORDS SUMMARY | 2024-04-21 21:02 | XMS_ITS | Encounter Summary ---
Author Organization [facility] Address [address] [place] [address] Care Team Providers Care Senior Animator Name Role Phone Todd Chiquita Leon NP Primary Care Provider [phone] Encounter Details Date Type Department Care Team (Late st Contact Info) Description 12/18/2019 Abstract [facility] Rheumatology [address] [place] [address] Dhara Cheng MD [address] [place] [phone] Social History Tobacco Use Types Packs/Day [...] Info) Description 09/11/2024 8:00 EST Office Visit [facility] Rheumatology [address] [place] [address] Dhara Cheng MD [address] [place] [phone] documented as of this encounter Procedures Procedure Name Priority Date/Time Associated Diagnosis Comments COMPLETE BLOOD COUNT AND DIFFERENTIAL Routine 12/17/2019 C REACTIVE PROTEIN Routine 12/17/2019 COMPREHENSIVE METABOLIC PANEL (CMP) Routine 12/17/2019 documented in this encounter Results * (ABNORMAL) C REACTIVE PROTEIN (12/17/2019) C-Reactive Protein, External 0.61(A) 0.0 - 0.3 [facility] Blood VENOUS BLOOD / Unknown 12/17/2019 Historical Provider CHEMISTRY & BLOOD GAS ORDERABLES Performing Organization Address [facility] Co de Phone Number [facility] * COMPREHENSIVE METABOLIC PANEL (CMP) (12/17/2019) Pathologist [facility] GFR, Calculated, External >60 [facility] Glucose, Serum, External 93 74 - 106 [facility] Albumin, External 4.0 3.4 - 5.0 [facility] Total Alkaline Phosphatase, External 106 46 - 116 [facility] ALT, External 28 16 - 63 [facility] AST, External 24 16 - 37 [facility] BUN, External 13 7 - 18 [facility] Calculated Calcium, External [facility] Calcium, External 8.9 8.5 - 10.1 [facility] Chloride, External 103 98 - 107 [facility] CO2, External 24.4 21.0 - 32.0 [facility] Creatinine, External 1.00 0.70 - 1.30 [facility] Fasting?, External [facility] Potassium, External 4.0 3.5 - 5.1 [facility] Sodium, External 137 136 - 145 [facility] Total Protein, External 7.3 6.4 - 8.2 [facility] Bilirubin, Total, External 0.5 0.2 - 1.0 [facility] Blood VENOUS BLOOD / Unknown 12/17/2019 Historical Provider CHEMISTRY & BLOOD GAS ORDERABLES Performing Organization Address [facility]/ZIP Co de Phone Number [facility] * (ABNORMAL) COMPLETE BLOOD COUNT AND DIFFERENTIAL (12/17/2019) WBC, External 10.43 4.4 - 10.8 [facility] RBC, External 4.28(A) 4.50 - 6.00 [facility] Hemoglobin, External 14.8 13.5 - 17.5 [facility] HCT, External 43.7 40.0 - 50.0 [facility] MCV, External 102.1(A) 80 - 95 [facility] MCH, External 34.6(A) 27.0 - 33.0 [facility] MCHC, External 33.9 32.0 - 36.0 [facility] PLT, External 318 130 - 400 [facility] RDW-CV, External 13.2 11.8 - 14.1 [facility] Neutrophils, External 59.0 [facility] Lymphocytes, External 26.7 [facility] Monocytes, External 10.4 [facility] Eosinophils, External 3.4 [facility] Basophils, External 0.4 [facility] ABS Neutrophils, External 6.17 1.2 - 6.7 [facility] ABS Lymphs, External 2.78 1.2 - 3.4 [facility] ABS Monocytes, External 1.08(A) 0.11 - 0.7 [facility] ABS Eosinophils, External 0.35 0.0 - 0.7 [facility] ABS Basophils, External 0.04 0.0 - 0.2 [facility] Blood VENOUS BLOOD / Unknown 12/17/2019 Historical Provider PACKAGES & DNA [place] OBE ORDERABLES [facility] documented in this encounter Visit Diagnoses Not on filedocumented in this encounter Care Teams Senior Animator Relationship Specialty Start Date End Date Chiquita Brooks NP PCP - General 09/29/14 documented as of this encounter
--- OUTSIDE RECORDS SUMMARY | 2024-04-21 21:02 | XMS_ITS | Encounter Summary ---
Author Organization [facility] Address [address] [place] [address] Care Team Providers Care Guest Relations Associate Name Role Phone Todd Chiquita Leon NP Primary Care Provider [phone] Encounter Details Date Type Department Care Team (Late st Contact Info) Description 08/14/2019 Abstract [facility] Rheumatology [address] [place] [address] Dhara Cheng MD [address] [place] [phone] Social History Tobacco Use Types Packs/Day [...] Description 09/11/2024 8:00 EST Office Visit [facility] Rheumatology [address] [place] [address] Dhara Cheng MD [address] [place] [phone] documented as of this encounter Procedures Procedure Name Priority Date/Time Associated Diagnosis Comments COMPLETE BLOOD COUNT AND DIFFERENTIAL Routine 08/10/2019 C REACTIVE PROTEIN Routine 08/10/2019 COMPREHENSIVE METABOLIC PANEL (CMP) Routine 08/10/2019 documented in this encounter Results * (ABNORMAL) COMPLETE BLOOD COUNT AND DIFFERENTIAL (08/10/2019) Pathologist [facility] WBC, External 8.55 4.4 - 10.8 [facility] RBC, External 4.33(A) 4.50 - 6.00 [facility] Hemoglobin, External 15.6 13.5 - 17.5 [facility] HCT, External 43.7 40.0 - 50.0 [facility] MCV, External 100.9(A) 80 - 95 [facility] MCH, External 36.0(A) 27.0 - 33.0 [facility] MCHC, External 35.7 32.0 - 36.0 [facility] PLT, External 373 130 - 400 [facility] RDW-CV, External 13.4 11.8 - 14.1 [facility] Neutrophils, External 57.7 [facility] Lymphocytes, External 29.1 [facility] Monocytes, External 8.9 [facility] Eosinophils, External 3.4 [facility] Basophils, External 0.8 [facility] ABS Neutrophils, External 4.93 1.2 - 6.7 [facility] ABS Lymphs, External 2.49 1.2 - 3.4 [facility] ABS Monocytes, External 0.76(A) 0.11 - 0.7 [facility] ABS Eosinophils, External 0.29 0.0 - 0.7 [facility] ABS Basophils, External 0.07 0.0 - 0.2 [facility] Blood VENOUS BLOOD / Unknown 08/10/2019 Dhara Cheng MD PACKAGES & DNA PROBE ORDERABLES [facility] * (ABNORMAL) COMPREHENSIVE METABOLIC PANEL (CMP) (08/10/2019) Pathologist [facility] GFR, Calculated, External >60 [facility] Glucose, Serum, External 117(A) 74 - 106 [facility] Albumin, External 3.8 3.4 - 5.0 [facility] Total Alkaline Phosphatase, External 102 46 - 116 [facility] ALT, External 26 16 - 63 [facility] AST, External 21 15 - 37 [facility] BUN, External 18 7 - 18 [facility] Calculated Calcium, External [facility] Calcium, External 9.4 8.5 - 10.1 [facility] Chloride, External 105 98 - 107 [facility] CO2, External 28.3 21.0 - 32.0 [facility] Creatinine, External 0.88 0.70 - 1.30 [facility] Fasting?, External [facility] Potassium, External 4.4 3.5 - 5.1 [facility] Sodium, External 142 136 - 145 [facility] Total Protein, External 6.9 6.4 - 8.2 [facility] Bilirubin, Total, External 0.5 0.2 - 1.0 [facility] Blood VENOUS BLOOD / Unknown 08/10/2019 Dhara Cheng MD CHEMISTRY & BLOOD GA S ORDERABLES [facility] * C REACTIVE PROTEIN (08/10/2019) C-Reactive Protein, External 0.24 0.0 - 0.3 [facility] Blood VENOUS BLOOD / Unknown 08/10/2019 Dhara Cheng MD CHEMISTRY & BLOOD GA S ORDERABLES [facility] documented in this encounter Visit Diagnoses Not on filedocumented in this encounter Care Teams Guest Relations Associate Relationship Specialty Start Date End Date Chiquita Brooks NP PCP - General 09/29/14 documented as of this encounter
--- OUTSIDE RECORDS SUMMARY | 2024-04-21 21:02 | XMS_ITS | Encounter Summary ---
Author Organization [facility] Address [address] [place] [address] Care Team Providers Care Database Tester Name Role Phone Unavailable Primary Care Provider Unavailabl e Encounter Details Date Type Department Care Team (Latest Contact Info) Description 09/25/2014 15:44 EST - 09/25/2014 23:59 EST Hospital Encounter [address] [address] Unknown, Provider, Discharge Disposition: Home or Self Care Social History Tobacco Use Types Packs/Day Years Used Date Smoking Tobacco: Never Assessed Sex and Gender Information Value Date Recorded Sex Assigned at Not on file Gender Identity Male 08/13/2019 8:28 EST Sexual Orientation Not on file documented as of this encounter Discharge Disposition Disposition Code Departure Means Destination Home or Self Senior Living documented in this encounter Plan of Treatment Upcoming Encounters Date Type Department Care Team (Late st Contact Info) Description 09/11/2024 8:00 EST Office Visit [facility] Rheumatology [address] [place] [address] Dhara Cheng MD [address] [facility] [address] [place] [address] documented as of this encounter Visit Diagnoses Not on filedocumented in this encounter
--- OUTSIDE RECORDS SUMMARY | 2024-04-21 21:02 | XMS_ITS | Encounter Summary ---
Author Organization [facility] Address [address] [place] [address] Care Team Providers Care Drafter Electromechanical Name Role Phone Chiquita Brooks MAPPING ENGINEER Primary Care Provider [phone] Encounter Details Date Type Department Care Team (Late st Contact Info) Description 04/02/2015 Results Only [facility] [phone] Erlin Reis MD [address] [place] [address] [place] [address] Social History Tobacco Use Types Packs/Day Years Used Date Smoking Tobacco: Never Assessed Sex and Gender Information Value Date Recorded Sex Assigned at Not on file Gender Identity Male 08/13/2019 8:28 EST Sexual Orientation Not on file documented as of this encounter Plan of Treatment Upcoming Encounters Date Type Department Care Team (Late st Contact Info) Description 09/11/2024 8:00 EST Office Visit [facility] Rheumatology [address] [place] [phone] Dhara Cheng MD [address] [place] [address] [address] [place] [phone] documented as of this encounter Procedures Procedure Name Priority Date/Time Associated Diagnosis Comments SURGICAL PATHOLOGY Routine 04/02/2015 8:48 EDT documented in this encounter Results * SURGICAL PATHOLOGY (04/02/2015 8:48 EDT) Pathology Report: SURGICAL PATHOLOGY REPORT Reports generated via electronic interface contain original data; however they are lacking the format of the original report. Caution should be taken when reading/interpreti ng unformatted reports. Name: ? PONCE DONG ? Accession #: ? [id number] ? : ? 1970 (Age: 45) ??M ? Collect Date: ? 04/02/2015 ? Location: ? [facility] ? Receive Date: ? 04/02/2015 ? Provider: ERLIN REIS MD Copy to: GIL ANDERSON MD ? Final Pathologic Diagnosis: SYNOVIUM, WRIST, CARPAL TUNNEL, EXCISION: - Fibroconnective and adipose tissue with focal fibrosis. Document reviewed and electronically signed by: PAULINE STAPLETON MD Report ??Date: 04/06/2015 16:06 By the signature above, the attending physician certifies that he/she has personally conducted a gross and/or microscopic examination of the described specimens and rendered or confirmed the above diagnosis. Specimen(s) Received: Synovium Clinical History: Synovium and fat from carpal tunnel; patient has sero positive rheumatoid arthritis, on Plaquenil Gross Description: ? Received in formalin labelled with proper patient identification (initials S, J) and 1. synovial is a slightly firm pale yellow-white, focally pantoja piece of tissue(0.9 x 0.6 x 0.4 cm). Bisected and submitted entirely in 1. Donnell Forrest 04/05/2015 10:56 AM End of Report [facility] 04/02/2015 8:48 EDT 04/02/2015 8:48 EDT Erlin Reis MD PATHOLOGY ORDERABLE S [facility] [address] [place] [address] documented in this encounter Visit Diagnoses Not on filedocumented in this encounter Care Teams Drafter Electromechanical Relationship Specialty Start Date End Date Chiquita Brooks NP PCP - General 09/29/14 documented as of this encounter
--- OUTSIDE RECORDS SUMMARY | 2024-04-21 21:02 | XMS_ITS | Encounter Summary ---
Author Organization [facility] Address [address] [place] [address] Care Team Providers Care Patternmaker Apprentice Metal Name Role Phone Chiquita Brooks COAGULATION OPERATOR Primary Care Provider [phone] Encounter Details Date Type Department Care Team (Late st Contact Info) Description 08/15/2019 Orders Only [facility] Rheumatology [address] [place] [address] Chrystal Duvall RN Social History Tobacco Use [...] Da te hydroxychloroquine (PLAQUENIL) 200 mg tablet 1 tab(s) orally once daily 90 Tab 1 08/15/2019 12/22/2019 documented in this encounter Progress Notes * Chrystal Duvall RN - 08/15/2019 2720 EST Faxed refill request from [facility] [place] for HC[facility]. Last visit notes (08/14/2019) reviewed and follow up noted 12/22/2019.Refill sent as noted. documented in this encounter Plan of Treatment Upcoming Encounters Date Type Department Care Team (Late st Contact Info) Description 09/11/2024 8:00 EST Office Visit [facility] Rheumatology [address] [place] [address] Dhara Cheng MD 130 [facility] [address] [place] [address] documented as of this encounter Visit Diagnoses Not on filedocumented in this encounter Discontinued Medications Medication Sig Discontinue Reason Start Date End Da te hydroxychloroquine (PLAQUENIL) 200 mg tablet 1 tab(s) orally once daily Reorder 07/14/2015 08/15/2019 documented as of this encounter Care Teams Patternmaker Apprentice Metal Relationship Specialty Start Date End Date Chiquita Brooks NP PCP - General 09/29/14 documented as of this encounter
--- OUTSIDE RECORDS SUMMARY | 2024-04-21 21:02 | XMS_ITS | Encounter Summary ---
Author Organization [facility] Address [address] [place] [address] Care Team Providers Care Hand Reamer Name Role Phone Chiquita Brooks DROP HAMMER SET UP OPERATOR Primary Care Provider [phone] Encounter Details Date Type Department Care Team (Late st Contact Info) Description 10/23/2019 Orders Only [facility] Rheumatology [address] [place] [address] Rosenda Appiah RN Social History Tobacco [...] orally once a week 72 Tab 1 10/23/2019 03/05/2020 documented in this encounter Progress Notes * Rosenda Appiah RN - 10/23/2019 0954 EDT Last visit note reviewed and follow up noted 12/22/19 and labs up to date. Refill sent as noted. documented in this encounter Plan of Treatment Upcoming Encounters Date Type Department Care Team (Late st Contact Info) Description 09/11/2024 8:00 EST Office Visit [facility] Rheumatology [address] [place] [address] Dhara Cheng MD [address] [facility] [address] [place] [address] documented as of this encounter Visit Diagnoses Not on filedocumented in this encounter Discontinued Medications Medication Sig Discontinue Reason Start Date End Da te methotrexate 2.5 mg tablet 6 tabs orally once a week Reorder 03/05/2018 10/23/2019 documented as of this encounter Care Teams Hand Reamer Relationship Specialty Start Date End Date Chiquita Brooks, SMOOTH PCP - General 09/29/14 documented as of this encounter
--- OUTSIDE RECORDS SUMMARY | 2024-04-21 21:02 | XMS_ITS | Encounter Summary ---
Author Organization [facility] Address [address] [place] [address] Care Team Providers Care Corporate Development Intern Name Role Phone Unknown, Provider Primary Care Provider [phone] Encounter Details Date Type Department Care Team (Late st Contact Info) Description 09/25/2014 Results Only [facility] [phone] Lilli Porras MD [address] [place] [address] [address] [place], [place] [phone] Social History Tobacco Use Types Packs/Day Years Used Date Smoking Tobacco: Never Assessed Sex and Gender Information Value Date Recorded Sex Assigned at Not on file Gender Identity Male 08/13/2019 8:28 EST Sexual Orientation Not on file documented as of this encounter Plan of Treatment Upcoming Encounters Date Type Department Care Team (Late st Contact Info) Description 09/11/2024 8:00 EST Office Visit [facility] Rheumatology [address] [place] [phone] Dhara Cheng MD 130 [facility] [address] [place] [phone] documented as of this encounter Procedures Procedure Name Priority Date/Time Associated Diagnosis Comments SURGICAL PATHOLOGY Routine 09/25/2014 7:48 EST documented in this encounter Results * SURGICAL PATHOLOGY (09/25/2014 7:48 EST) Pathology Report: SURGICAL PATHOLOGY REPORT Reports generated via electronic interface contain original data; however they are lacking the format of the original report. Caution should be taken when reading/interpret ing unformatted reports. Name: ? PONCE DONG ? Accession #: ? [id number] ? : ? 1970 (Age: 44) ??M ? Collect Date: ? 09/25/2014 ? Location: ? [facility] ? Receive Date: ? 09/26/2014 ? Provider: LILLI PORRAS MD Copy to: YSABEL SEGURA HULL BUILDER ? Final Pathologic Diagnosis: SOFT TISSUE OF ELBOW, RIGHT, MASS, EXCISION: - ??Palisaded granulomatous inflammation, favor granuloma annulare. ??See comment. - ??GMS stain negative for fungi. - ??Ziehl-Neelsen stain negative for acid fast bacilli. Comment: ? Dr. Ophelia Bess has reviewed this case in consultation. ??No polarizable foreign material is identified. ??Differential considerations include infection, rheumatoid nodule, and deep granuloma annulare. ??The presence of focal mucin associated with the granulomata on collodial iron staining favors granuloma annulare. Document reviewed and electronically signed by: PAULINE STAPLETON MD Report ??Date: 10/01/2014 16:00 By the signature above, the attending physician certifies that he/she has personally conducted a gross and/or microscopic examination of the described specimens and rendered or confirmed the above diagnosis. Specimen(s) Received: Lipoma Rt elbow Clinical History: Mass Rt elbow Gross Description: ? Received in formalin labelled with proper patient identification (initials S, J) and mass right elbow is a 1.5 x 0.9 x 0.5 cm pantoja-white rubbery mass. The outer surface is inked black. ??The specimen is serially sectioned, with a cut surface that is pantoja-white and homogenous. ??The specimen is entirely submitted as cassette 1. Dr. No 09/28/2014 10:12 AM End of Report [facility] 09/25/2014 7:48 EST 09/26/2014 7:48 EST Lilli Porras MD PATHOLOGY ORDERA [facility] Organization Address City/State/ZIP Co de Phone Number [facility] [address] [place] [address] documented in this encounter Visit Diagnoses Not on filedocumented in this encounter Care Teams Corporate Development Intern Relationship Specialty Start Date End Date Unknown, Provider, PCP - General 09/26/14 09/28/14 documented as of this encounter
--- OUTSIDE RECORDS SUMMARY | 2024-04-21 21:02 | XMS_ITS | Encounter Summary ---
Author Organization [facility] Address [address] [place] [address] Care Team Providers Care Highway Technician Name Role Phone Chiquita Brooks LCSW Primary Care Provider [phone] Encounter Details Date Type Department Care Team (Latest Contact Info) Description 10/15/2014 16:01 EDT - 10/15/2014 23:59 EDT Hospital Encounter [address] [address] Unknown, MD Lizzie Discharge Disposition: Home or Self Care Social History Tobacco Use Types Packs/Day Years Used Date Smoking Tobacco: Never Assessed Sex and Gender Information Value Date Recorded Sex Assigned at Not on file Gender Identity Male 08/13/2019 8:28 EST Sexual Orientation Not on file documented as of this encounter Discharge Disposition Disposition Code Departure Means Destination Home or Self [facility] documented in this encounter Plan of Treatment Upcoming Encounters Date Type Department Care Team (Late st Contact Info) Description 09/11/2024 8:00 EST Office Visit [facility] Rheumatology [address] [place] [address] Dhara Cheng MD [address] [place] [address] [address] [place] [address] documented as of this encounter Visit Diagnoses Not on filedocumented in this encounter Care Teams Highway Technician Relationship Specialty Start Date End Date Chiquita Brooks NP PCP - General 09/29/14 documented as of this encounter
--- OUTSIDE RECORDS SUMMARY | 2024-04-21 21:02 | XMS_ITS | Encounter Summary ---
Author Organization [facility] Address [address] [place] [address] Care Team Providers Care Assistant Purchasing Manager Name Role Phone Chiquita Brooks NP Primary Care Provider [phone] Encounter Details Date Type Department Care Team (Latest Contact Info) Description 04/02/2015 8:35 EDT - 04/02/2015 23:59 EDT Hospital Encounter [address] [address] Unknown, Provider, Discharge Disposition: Home or Self [...] Info) Description 09/11/2024 8:00 EST Office Visit [facility] Rheumatology [address] [place], [place] [address] Dhara Cheng MD 130 [facility] [address] [place] [address] documented as of this encounter Visit Diagnoses Not on filedocumented in this encounter Care Teams Assistant Purchasing Manager Relationship Specialty Start Date End Date Chiquita Brooks NP PCP - General 3/10/15 documented as of this encounter
--- OUTSIDE RECORDS SUMMARY | 2024-04-21 21:02 | XMS_ITS | Encounter Summary ---
Author Organization [facility] Address [address] [place] [address] Care Team Providers Care Special Events Planner Name Role Phone RafimattneryChiquita MANGANESE HEATER Primary Care Provider [phone] Reason for Visit * Reason Onset Date Comments Medications Refill 11/21/2019 Encounter Details Date Type Department Care Team (Late st Contact Info) Description 11/21/2019 Telephone [facility] [place] [address] [place] [address] Dhara Cheng MD 130 [facility] [address] [place] [address] Medications Refill Social History Tobacco [...] orally once a day 90 Tab 3 11/24/2019 12/17/2020 documented in this encounter Miscellaneous Notes * Telephone Encounter - Renetta Zuñiga - 11/24/2019 2295 EDT Spoke with Ponce to let him know I am unsure if his appt will be in the office or telemedicine, told him I would be in touch when his appointment was closer * Telephone Encounter - Rosenda Appiah RN - 11/24/2019 0824 EDT Last visit note reviewed and follow up noted 12/22/19. Refill sent as noted. Do you know if his appointment on 12/21 at 15:30 will have to be rescheduled to a morning appointment? Thank you. * Telephone Encounter - Celena Metz - 11/21/2019 1554 EDT Patient called looking to have his prescription for Folic acid 1 mg tablets to be refilled at [facility] in [facility]. Patient is also wondering if his upcoming appointment on 12/22/2019 and if it will be changed to telehealth or moved due to scheduling conflicts? Please advise. Thank you documented in this encounter Plan of Treatment Upcoming Encounters Date Type Department Care Team (Late st Contact Info) Description 09/11/2024 8:00 EST Office Visit [facility] Rheumatology [address] [place] [address] Dhara Cheng MD 130 [facility] [address] [place] [phone] documented as of this encounter Visit Diagnoses Not on filedocumented in this encounter Discontinued Medications Medication Sig Discontinue Reason Start Date End Da te folic acid (FOLVITE) 1 mg tablet 1 tab(s) orally once a day Reorder 03/05/2018 11/24/2019 documented as of this encounter Care Teams Special Events Planner Relationship Specialty Start Date End Date Chiquita Brooks NP PCP - General 09/29/14 documented as of this encounter
[2024-04-21 21:17] LABS: HCT 44.9 % (40.0-50.0); HGB 15.5 g/dL (13.5-17.5); MCH 34.6 pg (27.0-33.0); MCHC 34.5 % (32.0-36.0); MCV 100 fL (80-95); MPV 9.9 fL (8.0-11.0); Platelet Count 382 10^3/uL (130-400); RBC 4.48 10^6/uL (4.36-5.78); RDW 13.8 % (11.8-14.1); RDW-SD 50.4 fL; WBC 10.71 10^3/uL (4.4-10.8)
[2024-04-21 21:48] LABS: ALT 24 U/L (16-63); AST 20 U/L (15-37); Albumin 3.9 g/dL (3.4-5.0); Alkaline Phosphatase 113 U/L (46-116); Anion Gap 9.6 mmol/L (3-11); BUN 17 mg/dL (7-18); Bilirubin, Total 0.54 mg/dL (0.2-1.0); CO2 24.4 mmol/L (21.0-32.0); CREATININE 0.9 mg/dL (0.70-1.30); Calcium 9.4 mg/dL (8.5-10.1); Calculated LDL 159 mg/dL (<100); Chloride 104 mmol/L (98-107); Cholesterol 221 mg/dL (<200); Estimated GFR 100.86 (mL/min/1.73m2); Glucose 91 mg/dL (74-106); HDL Cholesterol 41 mg/dL (40-60); Magnesium 2.1 mg/dL (1.8-2.4); Sodium 138 mmol/L (136-145); TSH (W/Ref FT4) 3.78 uIU/mL (0.36-3.74); Total Protein 7.4 g/dL (6.4-8.2); Triglyceride 108 mg/dL (<150)
== END 2024-04-21 20:59 | disposition home or self-care (01) ==
LOC: LBN 20:58
PROVIDERS: PCP Nurse Practitioner Family; Visit Provider Nurse Practitioner Family
DX: D64.9 Anemia, unspecified (principal); R07.9 Chest pain, unspecified; R07.89 Other chest pain
CPT/HCPCS: 80053; 80061; 85027; 83735; 84439; 84443

== ENCOUNTER 2024-04-24 01:01 | Outpatient (CLI) | payer OTHER, SELFPAY ==
--- NOTE | 2024-04-24 06:00 | ETT_ITS ---
APPROVED REPORT Exam: Exercise Treadmill Patient Location: Out-Patient Room/Bed: Stress Nurse: Dorothea Ferreira RN Ordering Provider:BETTY DEXTER, Contact Number: [phone] BMI: 25.98 Baseline Rhythm: NSR Indications: Chest pain Medical History Medical History: Herpes zoster, lyme disease, anemia, seropositive rheumatiod arthritis, lympomatiod papulosis Cardiac Medications: Methotrexate sodium, valacyclovir, folic acid, hydoxychloroquine Allergies: NKA Cardiac Risk Factors: Smoker Previous Cardiac Procedures: None Pretest Chest Pain Characteristics: None Exercise History: Indeterminate Physical Disabilities: None Lung Sounds: Clear to auscultation Heart Sounds: Regular Stress Test Details Test: Exercise stress testing was performed using a Gulshan protocol. Rest Stress HR Resting HR Supine: 66 bpm Max Heart Rate (APMHR): 165 bpm Resting HR Standin bpm Target HR (85% APMHR): 140 bpm Max HR Achieved: 145 bpm % of APMHR: 88 Recovery HR: 92 bpm HR response to stress: Normal HR response to stress BP Resting BP Supine: 138/74 mmHg Resting BP Standin/74 mmHg Max BP: 172/70 mmHg Recovery BP: 138/72 mmHg BP response to stress: Normal blood pressure response to stress. ECG Resting ECG: Sinus Rhythm Ectopy: None Stress ECG: Sinus Tachycardia ST Change: No significant ST segment changes noted Arrhythmia: Occasional PVC's Occasional PAC's Recovery ECG: Sinus Rhythm Recovery ST Change: Horizontal ST depression, Downsloping ST depression Lead(s): II, aVF, V4 Recovery ST Deviation: 1-3 mm Recovery Arrhythmia: Occasional PAC's Clinical Reason for Termination: Fatigue, Target HR Achieved Stress Symptoms: Mod SOB, general fatigue, 1-2/10 chest tightness/burning Exercise duration: 09 min26 sec Highest Stage Reached: Stage 4: 4.2 mph at 16% grade. Exercise capacity: 10.88 METs Angina Score: Non-Limiting Campbell Treadmill Score: 3.0 Rate Pressure Product: 54097 Stress ECG Conclusion 1. Resting electrocardiogram was normal 2. Patient exercised on the Gulshan protocol and completed a workload of 11 METS 3. Normal heart rate and blood pressure response to exercise. The patient achieved 88% of predicted heart rate for age 4. There was no electrocardiographic evidence of myocardial ischemia 5. There were no significant dysrhythmias Campbell Treadmill Score is 3.0 which is Moderate risk. Stress Test Summary STAGE Time (mins) Speed (mph) Grade (%) HR BP SpO2 SYMPTOMS METS Supine 66 138/74 96% Standing 75 137/74 1 3 1.7 10 103 132/70 96% 1/10 chest tightness 4.5 2 6 2.5 12 117 142/68 2/10 chest tightness, mod SOB 7 3 9 3.4 14 136 10 4 12 4.2 16 141 13 1 min recovery 121 160/60 Chest pain resolved, mod sob 3 min recovery 94 172/70 6 min recovery 86 138/72 All symptoms resolved.
== END 2024-04-24 01:21 ==
PROVIDERS: PCP Nurse Practitioner Family; Visit Provider Nurse Practitioner Family
DX: R07.9 Chest pain, unspecified (principal)
CPT/HCPCS: 93017

== ENCOUNTER 2024-10-17 01:03 | Outpatient (CLI) | payer OTHER, SELFPAY ==
[2024-10-20 09:37] LABS: PSA, Screening 1.6 ng/mL (<=3.5)
== END 2024-10-17 01:04 | disposition home or self-care (01) ==
LOC: LBO 01:03
PROVIDERS: PCP Nurse Practitioner Family; Visit Provider Nurse Practitioner Family
DX: Z12.5 Encounter for screening for malignant neoplasm of prostate (principal)
CPT/HCPCS: 36415; 84153

== ENCOUNTER 2024-10-20 10:47 | Day surgery (SDC) | payer OTHER, SELFPAY ==
--- NOTE | 2024-10-19 17:36 | W.PM.DSUDISC ---
Date of service: 10/20/24 Discharge Plan Disposition Patient Disposition: Home Condition: Good Discharge Details Reason For Visit: screening colonoscopy Attending Provider: Tirso Dong Primary Care Provider: Tammie Watson Home Meds and New Rx's Prescriptions: Continued folic acid 1 mg tablet 1 mg PO DAILY methotrexate sodium 2.5 mg tablet 12.5 mg PO QWEEK valacyclovir [Valtrex] 500 MG tablet 500 mg PO DAILY hydroxychloroquine 200 mg tablet 200 mg PO DAILY Qty: 180 Discontinued bisacodyl 5 mg tablet,delayed release (DR/EC) 5 mg PO ONCE Qty: 4 0RF Rx Instructions: Per Colonoscopy bowel prep instructions polyethylene glycol 3350 17 gram/dose powder 238 g PO ONCE Qty: 238 0RF Rx Instructions: For Colonoscopy bowel prep, as directed by office Discharge Instructions Instructions: Aspiration Pneumonia (DC), Colon polyps, Diverticulosis Additional Instructions: Ponce, was great meeting you today, and hope you make a quick recovery after the procedure. Everything went very smoothly with regards to the actual colonoscopy. I did find, and removed a total of 3 polyps today. These are almost certainly the cause of your positive Cologuard test. Polyps, and a number of different varieties, and I will send all 3 of these off to the pathologist for their review. We use that information to help guide the timing of your next colonoscopy. Incidentally, he also have some diverticulosis. Diverticula are weak spots in the muscular layer of the colon wall. This causes the inside lining to pooch or pocket outwards a bit. These pockets are called diverticula and the condition of having them is called diverticulosis. He is can get infected or inflamed during episodes that we called diverticulitis. My general approach is to recommend patient to maintain a diet that is rich in fiber, stay well-hydrated, and avoid constipation. I will attach a little bit of information here about diverticulosis as well as colorectal polyps. If you have any questions at all, please do not hesitate to ask, otherwise we will be in touch once the polyp report is available 1. If tolerated, consume a soft, low fiber diet for 1-2 days. 2. Do not drive, drink alcohol, operate machinery, make critical decisions, or do activities that require coordination or balance for 24 hours. 3. Because air was put into your colon during the procedure, expelling air from your rectum (passing gas or farting) is normal. 4. You may not have a bowel movement for 1-3 days because of the colonoscopy prep. This is normal. 5. Go directly to the emergency room if you notice any of the following: Develop chills (warm to touch), or if you have a thermometer and your temperature is above 101 Difficulty breathing or difficultly swallowing Persistent vomiting Severe abdominal pain, other than gas cramps Severe chest pain Black, tarry stools Any bleeding ? exceeding one tablespoon 6. Call your physician if the site where your intravenous was started becomes red, swollen, painful, and warm to touch. 7. Your physician has reviewed your pre-procedure medications. Please continue to take those medications as previously ordered. You will be given specific information/education regarding any changes to your medications before leaving. Stand Alone Forms: Anesthesia Discharge InstMorris Saldivar (DSU) Activity:: Activity as Tolerated Discharge Orders Discharge Orders: Discharge Order (Routine); Ordered 10/19/24 Ordered By: Tirso Dong DS: Diagnosis Discharge Diagnosis (1) Encounter for screening colonoscopy: Status: Acute Asessment and Plan: Follow-up on polypectomy results
--- NOTE | 2024-10-19 17:51 | W.COLOREPORT ---
Date of service: 10/20/24 Time of Service: 15:17 Colonoscopy Report Date of procedure: 10/20/24 Pre-op diagnosis general: screening colonoscopy Post-op diagnosis procedure note: other (Diverticulosis, colon polyps) Procedure: colonoscopy with polypectomy Surgeon: Tirso Dong Anesthesia Type: General:No Airway Estimated blood loss (mL): 5 Pathology: other (0.5 cm pedunculated rectal polyp, 0.25 cm flat polyp at 75 cm, 0.5 cm flat polyp at 55 cm) Complications: None Disposition: same day Indications: Ponce is a 54 year old man who had a positive cologuard test. He needs a follow up screening colonoscopy Prep: Miralax/Dulcolax Procedure Start Time: 13:36 Procedure End Time: 14:17 Retraction Time: 21 Findings: 0.5 cm pedunculated rectal polyp; transverse and left-sided diverticulosis; 0.25 cm flat polyp at 60 cm, 0.25 cm flat polyp at 20 cm Procedure Description: After the induction of anesthesia, and with the patient in left lateral decubitus position, I began by performing an external anorectal exam.? Perineum and skin were normal, as was the anal verge.? There was no evidence of external hemorrhoids.? Next, I performed a digital rectal exam.? I did not appreciate any abnormal findings.? Next, I advanced a colonoscope into the rectal vault.? I performed retroflexion.? This appeared normal.? In the midportion of the rectal vault was a 0.5 cm pedunculated polyp. This was removed with cold snare polypectomy without issues. Using irrigation, I then advanced the colonoscope beyond the rectal folds and into the sigmoid colon before advancing towards the cecum.? The quality of the prep was adequate.? The scope was noted to be in the cecum by identification of the ileocecal valve and appendiceal orifice.? I then began withdrawing the colonoscope using repeated irrigation as necessary for full evaluation of the colonic mucosa. ?Around 75 cm from the anal verge was a 0.25 cm flat polyp. This was removed with cold forceps without any issues. There was some transverse, and left-sided diverticulosis. The sigmoid segment was relatively spared. Around 55 cm from the anal verge was another polyp. This was about 0.5 cm and a little more flat. This was removed in piecemeal snare and cold forceps. Resection was complete. There was minimal bleeding from the site. Once the scope was withdrawn to the level of the rectum, great care was taken to examine portions of the rectal folds.? Finally, the scope was withdrawn and the patient was brought to the same-day surgery recovery unit as the anesthetic wore off. ?The findings and instructions were shared with the patient prior to discharge. [place] Bowel Prep [place] Bowel Prep Right Colon: 2 Left Colon: 3 Transverse Colon: 2 Total Score: 7
[2024-10-20 11:04] VITALS: BP 132/82; PULSE 76; RESP 18; TEMP 36.5; O2SAT 97
[2024-10-20] MEDS: Lactated Ringers 1,000 ML 80 ML IV ×2 (11:16→13:41)
--- NOTE | 2024-10-20 12:05 | W.ANESPRE ---
General Info Date of Service Date Performed: 10/20/24 Height: 5 ft 9.5 in Weight: 82.5 kg Body Mass Index (BMI): 26.4 Surgical Procedure: Operation Date: 10/20/24 12:20 Proposed Procedure Side Surgeon farida Dong MD Meds Allergies and Home Medications Allergies Allergy/AdvReac Type Severity Reaction Status Date / Time No Known Allergies Allergy Verified 10/20/24 10:57 Home Medication ?Medication ?Instructions ?Recorded valacyclovir 500 mg tablet 500 mg PO DAILY 11/05/13 (Valtrex) folic acid 1 mg tablet 1 mg PO DAILY 01/29/19 hydroxychloroquine 200 mg tablet 200 mg PO DAILY #180 tab-caps 02/27/23 methotrexate sodium 2.5 mg tablet 12.5 mg PO QWEEK 02/27/23 Current Visit Medications: Current Medications Generic Name Dose Route Start Last Admin Trade Name Freq PRN Reason Stop Dose Admin Ringer's Solution 1,000 mls @ 80 mls/hr 10/20/24 06:00 10/20/24 11:16 IV 10/20/24 23:59 80 mls/hr INFUSION AGGIE Administration IV Miscellaneous Supplies 1 each 10/20/24 06:00 Iv Access IV 10/20/24 23:59 DIRECTED AGGIE Ondansetron HCl 4 mg 10/19/24 17:52 Ondansetron 4 Mg/2 Ml Vial IVP 11/18/24 17:51 Q4H PRN PRN Nausea / Vomiting Sodium Chloride 0 ml 10/20/24 06:00 Normal Saline Flush 10 Ml Syr IV 10/20/24 23:59 PRN PRN Sodium Chloride 0 ml 10/20/24 06:00 Normal Saline 10 Ml Vial IJ 10/20/24 23:59 DIRECTED PRN Sterile Water 0 ml 10/20/24 06:00 Water,Injection,Sterile 10 Ml Vial IJ 10/20/24 23:59 DIRECTED PRN PFSH Active Problems Active Problems: Problem Status Onset Code Encounter for screening colonoscopy Acute Z12.11 Hyperlipidemia Acute E78.5 Insomnia Acute G47.00 Lyme disease Acute A69.20 Genital herpes simplex Acute 10/02/14 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 denies Surgical History Surgical History Open Carpal Tunnel release (04/02/15) RIGHT WRIST/DR REIS Tobacco Smoking/Tobacco Use Status: Current every day Tobacco Type: cigarettes Passive smoking exposure: Yes Second hand exposure: Yes Alcohol Alcohol Intake: current Alcohol intake frequency: holidays/special occasions only Alcohol type: beer Substance Use Substance use: Occasionally Substance use type: marijuana Details: Last used marijuana 1 week ago. Vital Signs and Lab Results Vital Signs Most Recent Vital Signs in EMR: Most Recent Vital Signs Temp Pulse Resp BP Pulse Ox 36.5 C 76 18 132/82 97 10/20/24 11:04 10/20/24 11:04 10/20/24 11:04 10/20/24 11:04 10/20/24 11:04 Lab Results Blood Type / Crossmatch: No Data to Display Complete Blood Count: No Data to Display Complete Metabolic Panel: No Data to Display Liver Function Panel: No Data to Display Coagulation Panel: No Data to Display Cardiac Panel: No Data to Display Arterial Blood Gas: No Data to Display Venous Blood Gas: No Data to Display Pancreas Panel: No Data to Display Thyroid Panel: No Data to Display Infectious Disease: No Data to Display Blood Cultures: No Data to Display Toxicology Panel: No Data to Display Imaging and Studies Imaging and Studies Study information below may be from another EMR and interpreted by another provider. Please see original notes in EMR for more complete details. Stress Test Summary: 04/24/24: Stress ECG Conclusion 1. Resting electrocardiogram was normal 2. Patient exercised on the [place]shan protocol and completed a workload of 11 METS 3. Normal heart rate and blood pressure response to exercise. The patient achieved 88% of predicted heart rate for age 4. There was no electrocardiographic evidence of myocardial ischemia 5. There were no significant dysrhythmias Campbell Treadmill Score is 3.0 which is Moderate risk. Echocardiogram Summary: 04/23/24: EF 60%, valves structurally normal Anesthesia Assessment and Plan Anesthesia History Personal History: No History of Anesthesia Complications Family History: No Family History of Anesthesia Complications Exercise Tolerance Exercise Tolerance: Metabolic Equivalents>4 Pertinent Negatives Pertinent Negatives: No Major Cardiovascular Symptoms or Complaints and No Major Pulmonary Symptoms or Complaints Cardiac & Pulmonary Exam Cardiac Exam: Normal S1/S2 Heart Sounds Pulmonary Exam: Clear Bilateral Breath Sounds Implantable Cardiac Device Does patient have a Pacemaker or an ICD?: No Airway Exam Known Difficult Airway: No Mallampati Class: 2 Mouth Opening: Normal (> 3cm) Thyromental Distance: Greater than 3 cm Neck Range of Motion: Full ROM Neck Circumference: Normal Teeth Condition: Normal Dentition ASA Classification ASA Score: ASA 2 Emergency Case?: No NPO Status NPO Status: NPO Clears >2 hours, Solids >8 hours Anesthesia Plan Resuscitation Status: Full Code Anesthesia Technique: General Anesthesia Airway Planned: Natural Airway Monitors Used: Standard Monitors
[2024-10-20 13:06] VITALS: BMI 26.4
--- NOTE | 2024-10-20 13:40 | BOWEL_PTH ---
PATIENT: Ponce Dong LOC: [facility] U#:[id number] AGE/SX: 54/M ROOM: RE10/20/[address]: Tirso Dong MD : 1970 BED: DIS: 10/20/2024 SPEC #: [id number] RECD: 10/20/24 16:19 STATUS: SHALOM RE #: [id number] BAMBI: 10/20/24 13:[address]: Tirso Dong DEPT: Surgical Specimen RECD BY: Soo Varela ENTERED: 10/20/24 16:20 SP TYPE: Bowel OTHR DR: Tammie Watson, STEELER Tissues: 1 - BIOPSY BOWEL 2 - BIOPSY BOWEL 3 - BIOPSY BOWEL Procedures: GROSS AND MICRO LEVEL 4 Comments: [id number]
[2024-10-20 14:23] VITALS: BP 142/97; PULSE 88; RESP 18; TEMP 36.6; O2SAT 100
--- NOTE | 2024-10-20 14:47 | W.ANESPOSTOP ---
Postoperative Evaluation Date, Time and Location Date Performed: 10/20/24 Time Performed: 14:47 Patient Location: Day Surgery Unit Vital Signs Most Recent Imported Vital Signs: Most Recent Vital Signs Temp Pulse Resp BP Pulse Ox 36.5 C 76 18 132/82 97 10/20/24 11:04 10/20/24 11:04 10/20/24 11:04 10/20/24 11:04 10/20/24 11:04 Pain Score Most Recent Pain Score: Most Recent Pain Score Pain Level 0 10/20/24 11:04 Assessment Mental Status: Awake (Alert & Oriented to Patient Baseline) Airway and Respiratory Function: Patent airway with normal (patient baseline) respiratory exam (Clear to auscultation bilaterally) Cardiovascular Function: Hemodynamically Stable Hydration Status: Adequately Hydrated Nausea & Vomiting: No Nausea or Vomiting Pain: Pt. Denies Any Pain Peripheral Nerve Block: Patient did not receive a nerve block Teaching Patient Teaching: Other (Aspiration pneumonia) Postoperative Comments:: Reviewed aspiration pneumonia discharge paperwork with patient, encouraged to reach out with any questions or concerns. Verbalized understanding.
[2024-10-20 14:48] VITALS: BP 130/88; PULSE 72; RESP 16; TEMP 36.4; O2SAT 98
== END 2024-10-20 15:23 | disposition home or self-care (01) ==
PROVIDERS: PCP Nurse Practitioner Family; Visit Provider Surgery
PROC: 0DJD8ZZ Inspection of Lower Intestinal Tract, Via Natural or Artificial Opening Endoscopic (ICD-10-PCS; CPT 45378; principal; 2024-10-20 12:15)
DX: Z12.11 Encounter for screening for malignant neoplasm of colon (principal); K57.30 Diverticulosis of large intestine without perforation or abscess without bleeding; D12.8 Benign neoplasm of rectum; D12.5 Benign neoplasm of sigmoid colon; D12.4 Benign neoplasm of descending colon
CPT/HCPCS: 45385; 45380; 88305; J2003; J2250; J2704